=== PATIENT | female | born 1970 | race Caucasian/White ===

== ENCOUNTER 2020-11-03 08:52 | Outpatient (REF) | payer MEDICAID, SELFPAY ==
--- NOTE | 2020-11-03 | US_ITS ---
EXAMINATION: US RETROPERITONEAL LIMITED (RENAL ONLY) CLINICAL INFORMATION: Renal calculus. COMPARISON: CT abdomen and pelvis 03/31/2020. Renal ultrasound 02/06/2020. TECHNIQUE: Real-time imaging of the kidneys. FINDINGS: RIGHT KIDNEY: 9.1 x 5.0 x 5.3 cm (SAG x AP x TRV). The kidney is normal in size, contour, and echogenicity. Renal cortical thickness is normal. No focal parenchymal lesions or hydronephrosis. There is an echogenic stone upper/midpole measuring 0.60 x 0.3 cm 0.32 cm. There is questionable exophytic nonvascular mass in the upper pole with ill-defined margins. This is not seen on the recent CT abdomen exam 03/31/2020. LEFT KIDNEY: 10.8 x 6.3 x 6.3 cm (SAG x AP x TRV). The kidney is normal in size, contour, and echogenicity. Renal cortical thickness is normal. No focal parenchymal lesions or hydronephrosis. There is an echogenic stone in lower pole without caliectasis. It measures 0.23 x 0.26 was 0.23 cm US/US renal BI IMPRESSION: 1. Bilateral nonobstructive echogenic calculi. No evidence of hydronephrosis. 2. Ill-defined mass-like nonvascular structure exophytic right kidney. No lesion was seen on the recent CT abdomen and pelvic contrast exam 03/31/2020.
== END 2020-11-03 08:53 | disposition home or self-care (01) ==
LOC: HO.US 08:52
PROVIDERS: PCP Internal Medicine; Visit Provider Urology
DX: N20.0 Calculus of kidney (principal)
CPT/HCPCS: 76775

== ENCOUNTER → 2020-11-21 14:32 | Outpatient (BNVA) | payer MEDICAID, SELFPAY | PROVIDERS: PCP Family Medicine; Referring Provider Family Medicine; Visit Provider Urology ==

== ENCOUNTER 2022-01-28 14:27 | Outpatient (REF) | payer MEDICAID, SELFPAY ==
--- NOTE | ~2022-01-28 | XR_ITS ---
EXAMINATION: XR LUMBOSACRAL SPINE CLINICAL INFORMATION: Low back pain. COMPARISON: None TECHNIQUE: Three views of the lumbosacral spine. FINDINGS: The heights of the lumbar vertebrae are normal. Mild thoracolumbar dextroscoliosis. The alignment is intact. Mild decreased disc height, endplate osteophyte formation, consistent with mild multilevel degenerative spondylosis related changes are noted throughout the entire lumbar spine. Postsurgical changes of prior hernia repair is noted within the lower abdomen, seen only on the frontal projection. XR/XR lumbar spine 2-3V IMPRESSION: Mild multilevel degenerative spondylosis.
== END 2022-01-28 14:28 | disposition home or self-care (01) ==
LOC: HO.XRAY 14:27
PROVIDERS: PCP Family Medicine; Visit Provider Family Medicine
DX: M54.41 Lumbago with sciatica, right side (principal); M54.42 Lumbago with sciatica, left side
CPT/HCPCS: 72100

== ENCOUNTER 2022-09-28 11:19 | Outpatient (REF) | payer MEDICAID, SELFPAY ==
--- NOTE | ~2022-09-28 | US_ITS ---
EXAMINATION: US RETROPERITONEAL LIMITED (RENAL ONLY) CLINICAL INFORMATION: Calculus of kidney. COMPARISON: Renal ultrasound 11/03/2020 and 02/06/2020. CT abdomen and pelvis 03/31/2020. TECHNIQUE: Real-time imaging of the kidneys. FINDINGS: RIGHT KIDNEY: 9.1 x 4.7 x 6.0 cm (SAG x AP x TRV). The kidney is normal in size, contour, and echogenicity. Renal cortical thickness is normal. No hydronephrosis. There is an anechoic cyst in the upper pole measuring 0.82 x 0.82 x 1.0 cm. There are 2 echogenic nonobstructive calculi in upper pole measuring 0.63 x 0.30 x 0.44 cm and midpole measuring 0.24 x 0.18 x 0.35 cm. LEFT KIDNEY: 10.8 x 5.4 x 5.3 cm (SAG x AP x TRV). The kidney is normal in size, contour, and echogenicity. Renal cortical thickness is normal. No calculi or focal parenchymal lesions. No hydronephrosis. US/US renal BI IMPRESSION: 1. Nonobstructive echogenic stones upper and midpole right kidney. 2. There is an anechoic cyst upper pole right kidney, not previously mentioned but unchanged. 3. The left kidney is unremarkable.
== END 2022-09-28 11:20 | disposition home or self-care (01) ==
LOC: HO.HMGCX 11:19
PROVIDERS: PCP Family Medicine; Visit Provider Emergency Medicine
DX: N20.0 Calculus of kidney (principal)
CPT/HCPCS: 76775

== ENCOUNTER 2023-08-29 11:00 | Outpatient (REF) | payer MEDICAID, SELFPAY ==
[2023-08-29 13:19] LABS: MANUAL DIFF FLAG NO
[2023-08-29 13:29] LABS: Basophils Absolute Auto 0.1 X10*3/uL (0.0-0.2); Basophils Percent Auto 0.6 % (0-2); Eosinophils Absolute Auto 0.2 X10*3/uL (0.0-0.4); Eosinophils Percent Auto 2.2 % (0-4); Hematocrit 44.8 % (37.0-47.0); Hemoglobin 14.2 g/dl (12.0-16.0); Imm Gran Abs Auto 0.04 X10*3/uL (0.00-0.03); Imm Gran Pct Auto 0.4 % (0.0-0.4); Lymphocytes Absolute Auto 2.5 X10*3/uL (1.2-4.9); Lymphocytes Percent Auto 25.5 % (20-40); Mean Corpuscular HGB Conc 31.7 g/dl (31.0-35.0); Mean Corpuscular Hemoglobin 27.5 pg (27.0-33.0); Mean Corpuscular Volume 86.7 fL (80.0-98.0); Mean Platelet Volume 10.1 fL (9.4-12.3); Monocytes Absolute Auto 0.5 X10*3/uL (0.1-1.2); Monocytes Percent Auto 5.1 % (2-11); Neutrophils Absolute Auto 6.3 x10*3/uL (2.0-8.3); Neutrophils Percent Auto 66.2 % (45-73); Platelet Count 283 X10*3/uL (160-400); Red Blood Count 5.17 X10*6/uL (4.20-5.50); Red Cell Distribution Width 13.5 % (11.0-16.0); White Blood Count 9.6 X10*3/uL (4.8-10.8)
[2023-08-29 13:42] LABS: Estimated Average Glucose 123 mg/dL; Hemoglobin A1c % 5.9 % (<6.0)
[2023-08-29 13:59] LABS: Alanine Aminotransferase 31 U/L (0-31); Albumin Level 4.7 g/dL (3.5-5.0); Alkaline Phosphatase 91 U/L (39-117); Anion Gap 12 (12-20); Aspartate Amino Transferase 25 U/L (5-31); Bilirubin Direct 0.1 mg/dL (0.0-0.5); Bilirubin Total 0.3 mg/dL (0.0-1.0); Blood Urea Nitrogen 12 mg/dL (9-16); Calcium 10.2 mg/dL (8.4-10.2); Carbon Dioxide 26 mmol/L (22-29); Chloride 106 mmol/L (96-108); Cholesterol 223 mg/dL (<200); Estimated Glomerular Filt Rate > 60; Free T4 (Free Thyroxine) 0.88 ng/dL (0.71-1.85); Glucose Random 88 mg/dL (60-115); HDL Cholesterol 57 mg/dL (>40); LDL Cholesterol Calculated 151 mg/dL (<100); Potassium 3.9 mmol/L (3.3-5.1); Sodium 140 mmol/L (135-145); Total Protein 8.1 g/dL (6.5-8.0); Triglycerides 79 mg/dL (<150); Vitamin D 25-OH Total 44.2 ng/mL (>30)
[2023-08-29 15:44] LABS: CT PCR NOT DETECTED (Not Detect.); NG PCR NOT DETECTED (Not Detect.)
[2023-08-30 05:39] LABS: Syphilis Screen Nonreactive (Nonreactive)
[2023-08-30 05:42] LABS: HIV AB/AG Nonreactive (Nonreactive); HIV Num 1 0.05 S/CO (0.00-0.99)
[2023-08-30 06:07] LABS: HBsAGNum1 0.36 S/CO (0.00-0.99); Hepatitis B Surface Antigen Negative (Negative); ~Hepatitis B Surface Antibody NONREACTIVE (Nonreactive)
[2023-08-30 06:17] LABS: Hepatitis A Antibody IgG Nonreactive (Nonreactive); ~Hepatitis A Antibody IgG 0.43 S/CO (0.00-0.99)
[2023-08-30 16:04] LABS: HIV RNA PCR Qn Copies NOT DETECTED copies/mL (NOT DETECTED); HIV RNA PCR Qn Log Copies NOT DETECTED (NOT DETECTED)
== END 2023-08-29 11:01 | disposition home or self-care (01) ==
LOC: HO.HHCL 11:00
PROVIDERS: Visit Provider Family Medicine
DX: Z00.00 Encounter for general adult medical examination without abnormal findings (principal)
CPT/HCPCS: 0353U; 36415; 80048; 80061; 80076; 82306; 83036; 84439; 84443; 85025; 86706; 86708; 86780; 87340; 87389; 87536

== ENCOUNTER 2023-09-23 12:38 | Outpatient (REF) | payer MEDICAID, SELFPAY ==
--- NOTE | ~2023-09-23 | US_ITS ---
EXAMINATION: US RETROPERITONEAL LIMITED (RENAL ONLY) CLINICAL INFORMATION: Nephrolithiasis. COMPARISON: Renal ultrasound 09/28/2022 and 11/03/2020. CT abdomen and pelvis 03/31/2020. TECHNIQUE: Real-time imaging of the kidneys. FINDINGS: RIGHT KIDNEY: 10.1 x 4.9 x 4.4 cm (SAG x AP x TRV). The kidney is normal in size, contour, and echogenicity. Renal cortical thickness is normal. No hydronephrosis. At the upper pole, a 5 mm nonobstructing calculus is seen. At the upper pole, a 1.2 cm benign, simple cyst is seen, for which no imaging follow-up is recommended. LEFT KIDNEY: 11.2 x 4.8 x 5.4 cm (SAG x AP x TRV). The kidney is normal in size, contour, and echogenicity. Renal cortical thickness is normal. No calculi or focal parenchymal lesions. No hydronephrosis. US/US renal BI IMPRESSION: A 5 mm nonobstructing right renal calculus is seen. No left renal calculus is seen. No hydronephrosis is noted bilaterally.
== END 2023-09-23 12:39 | disposition home or self-care (01) ==
LOC: HO.US 12:38
PROVIDERS: PCP Family Medicine; Visit Provider Family Medicine
DX: N20.0 Calculus of kidney (principal)
CPT/HCPCS: 76775

== ENCOUNTER 2023-10-07 18:06 | Outpatient (REF) | payer MEDICAID, SELFPAY ==
[2023-10-10 11:24] LABS: C. trachomatis RNA TMA NOT DETECTED (NOT DETECTED); Candida glabrata RNA NOT DETECTED (NOT DETECTED); Candida species RNA NOT DETECTED (NOT DETECTED); N. gonorrhoeae RNA TMA NOT DETECTED (NOT DETECTED); Trichomonas vaginalis RNA NOT DETECTED (NOT DETECTED)
[2023-10-13 23:07] LABS: HPV mRNA E6/E7 rflx Not Detected (Not Detected)
== END 2023-10-07 18:07 | disposition home or self-care (01) ==
LOC: HO.HHCLNP 18:06
PROVIDERS: Visit Provider Family Medicine
DX: Z12.4 Encounter for screening for malignant neoplasm of cervix (principal)
CPT/HCPCS: 36415; 81513; 87481; 87491; 87591; 87624; 87661; 88142

== ENCOUNTER → 2023-10-19 12:23 | Outpatient (BNVA) | payer MEDICAID, SELFPAY | PROVIDERS: PCP Family Medicine; Visit Provider Urology ==

== ENCOUNTER 2023-11-23 14:29 | Outpatient (AMB) | payer MEDICAID, SELFPAY ==
--- NOTE | 2023-11-23 14:35 | A.OFFVIS_ITS ---
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 Pt states her numbness in her hands will come and go but is only in her hands. Pt states she did have PT in September but they stopped the PT due to her inflammation and pain not getting better. 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 She reports she has numbness and tingling in her hand which she believes started after lifting heavy objects at work about an year ago. She currently states she has mild pain as well as intermittent numbness and tingling which is worse on her left hand. Her pain is aggravated with twisting motions and at night. She was working with physical therapy but had to discontinue due to her inflammation and pain in the hand. [facility] Medical History Mild depression Chronic low back pain Diverticulosis Chronic gastroesophageal reflux disease Intermittent asthma History of panic disorder Hx of allergic rhinitis Surgical History Hx of cholecystectomy Hx of lithotripsy History of inguinal hernia Hx of section Family History Father No problems noted. Mother No problems noted. Social History Alcohol intake: current Alcohol intake frequency: does not drink Patient Tobacco Use Status: Never used Tobacco Review of Systems Const All systems reviewed & are unremarkable except as noted in HPI and below Physical Exam Const General: cooperative, healthy appearing, comfortable, no acute distress, well developed and alert Orientation/consciousness: patient oriented x3 HEENT Head: Yes normal to inspection, Yes normocephalic and Yes atraumatic Eyes General: appearance normal, both eyes and all related structures Resp Effort & Inspection: normal respiratory effort and able to speak in complete sentences Cardio Rate: regular rate Peripheral pulses: Peripheral pulses 2+ throughout GI Palpation (GI): Soft to palpation Skin Lesions: no lesions Rashes: no rashes Neuro General: patient oriented x3 Extrem Other: Left wrist: Without deformity. No swelling. Mild tenderness over the radial styloid. Positive Kennedy?s. No pain with [facility] grind. is able to make a full fist and fully extend all digits. Positive Tinel?s over the cubital tunnel of the left elbow. NVI. Assessment & Plan Assessment & Plan (1) Medial epicondylitis, left elbow: Code(s): M77.02 - Medial epicondylitis, left elbow (2) De Quervain's disease (radial styloid tenosynovitis): Code(s): M65.4 - Radial styloid tenosynovitis [de Quervain] Plan She was fit for an off the shelf Velcro thumb spica splint which she will wear at night and with lifting activities. She will also work with occupational therapy for her left wrist and elbow. She had any EMG/nerve conduction study performed at [facility] which I will obtain results for further information and I will contact her if there is any need for further treatment such as a surgical intervention. Orders: Orders OT Evaluation and Treatment Today M65.4 - Radial styloid tenosynovitis [de Quervain], M77.02 - Medial epicondylitis, left elbow Patient Instructions: Scribed for Melissa Leyva PA-C, by Alexander Arias biomedical equipment technician, on 11/23/2023 at 3:00 PM EST. I, Melissa Leyva PA-C, have personally reviewed and agree with t he information entered by the scribe. Coding Level of Care Code New Pt Level 3 (81292) Diagnoses Medial epicondylitis, left elbow M77.02 De Quervain's disease (radial styloid tenosynovitis) M65.4
== END 2023-11-23 15:45 | disposition home or self-care (01) ==
PROVIDERS: PCP Family Medicine; Visit Provider Physician Assistant
DX: M77.02 Medial epicondylitis, left elbow (principal); M65.4 Radial styloid tenosynovitis [de Quervain]
CPT/HCPCS: 99203

== ENCOUNTER → 2023-11-23 14:29 | Outpatient (BNVA) | payer MEDICAID, SELFPAY | PROVIDERS: PCP Family Medicine; Visit Provider Physician Assistant | DX: M77.02 Medial epicondylitis, left elbow (principal); M65.4 Radial styloid tenosynovitis [de Quervain] | CPT/HCPCS: 99212 ==

== ENCOUNTER 2023-12-09 09:14 | Outpatient (REF) | payer MEDICAID, SELFPAY ==
[2023-12-11 20:27] LABS: TS Negative Control Passed; TS Panel A 0; TS Panel B 0; TS Positive Control Passed; TSpotTB Negative (Negative)
== END 2023-12-09 09:15 | disposition home or self-care (01) ==
LOC: HO.HHCL 09:14
PROVIDERS: Visit Provider Family Medicine
DX: Z00.00 Encounter for general adult medical examination without abnormal findings (principal)
CPT/HCPCS: 36415; 86481

== ENCOUNTER 2023-12-23 10:31 | Outpatient (REF) | payer MEDICAID, SELFPAY ==
--- NOTE | 2023-12-23 10:35 | EMG_ITS ---
Chief complaint: Pain, numbness both hands, left-sided neck pain. Reason for referral: Evaluate for Carpal Tunnel Syndrome versus ulnar neuropathy Referred by: Melissa HALE Procedure done: Bilateral upper extremities NCS/EMG Precautions and/or limitations: None The limb temperature was monitored continuously and remained between 32-36 degrees C during the performance of the NCS. Nerve Conduction Studies Anti Sensory Summary Table ?Stim Site NR Onset (ms) Norm Onset (ms) Peak (ms) Norm Peak (ms) O-P Amp (?V) Norm O-P Amp Site1 Site2 Delta-0 (ms) Dist (cm) Gomez (m/s) Norm Gomez (m/s) Left Median Anti Sensory (2nd Digit) Wrist ? 2.9 3.8 <3.6 29.9 >10 Wrist 2nd Digit 2.9 14.0 48 Right Median Anti Sensory (2nd Digit) Wrist ? 3.1 4.1 <3.6 29.8 >10 Wrist 2nd Digit 3.1 14.0 45 Right Radial Anti Sensory (Thumb) Forearm ? 1.7 2.3 <3.1 28.9 Forearm Thumb 1.7 0.0 Left Ulnar Anti Sensory (5th Digit) Wrist ? 2.4 3.2 <3.7 30.4 >15.0 Wrist 5th Digit 2.4 14.0 58 Right Ulnar Anti Sensory (5th Digit) Wrist ? 2.4 3.3 <3.7 22.8 >15.0 Wrist 5th Digit 2.4 14.0 58 Motor Summary Table ?Stim Site NR Onset (ms) Norm Onset (ms) O-P Amp (mV) Norm O-P Amp iAmp (mV) Amp (1st) (%) Site1 Site2 Delta-0 (ms) Dist (cm) Gomez (m/s) Norm Gomez (m/s) Left Median Motor (Abd Poll Brev) Wrist ? 3.9 <3.9 10.0 >4.5 13.2 100.0 Elbow Wrist 3.8 19.0 50 >45 Elbow ? 7.7 7.8 10.8 78.0 Right Median Motor (Abd Poll Brev) Wrist ? 3.8 <3.9 11.9 >4.5 15.1 100.0 Elbow Wrist 3.8 18.0 47 >45 Elbow ? 7.6 12.0 15.0 100.8 Left Ulnar Motor (Abd Dig Minimi) Wrist ? 2.7 <3.0 5.9 >5 7.2 100.0 B Elbow Wrist 2.7 16.0 59 >45 B Elbow ? 5.4 5.5 6.6 93.2 A Elbow B Elbow 1.4 10.0 71 >45 A Elbow ? 6.8 5.5 6.6 93.2 Right Ulnar Motor (Abd Dig Minimi) Wrist ? 2.9 <3.0 9.6 >5 12.5 100.0 B Elbow Wrist 2.7 17.0 63 >45 B Elbow ? 5.6 8.9 11.5 92.7 A Elbow B Elbow 1.2 10.0 83 >45 A Elbow ? 6.8 7.9 10.7 82.3 EMG ?Side Muscle Nerve Root Ins Act Fibs Psw Amp Dur Poly Recrt Int Pat Comment Right 1stDorInt Ulnar C8-T1 Nml Nml Nml Nml Nml 0 Nml Complete Right FlexCarRad Median C6-7 Nml Nml Nml Nml Nml 0 Nml Complete Right Biceps Musculocut C5-6 Nml Nml Nml Nml Nml 0 Nml Complete Right Triceps Radial C6-7-8 Nml Nml Nml Nml Nml 0 Nml Complete Right Deltoid Axillary C5-6 Nml Nml Nml Nml Nml 0 Nml Complete Left 1stDorInt Ulnar C8-T1 Nml Nml Nml Nml Nml 0 Nml Complete Left FlexCarRad Median C6-7 Nml Nml Nml Nml Nml 0 Nml Complete Left Biceps Musculocut C5-6 Nml Nml Nml Nml Nml 0 Nml Complete Left Triceps Radial C6-7-8 Nml Nml Nml Nml Nml 0 Nml Complete Left Deltoid Axillary C5-6 Nml Nml Nml Nml Nml 0 Nml Complete FINDINGS: Bilateral median sensory nerves showed prolonged peak latency. All other nerves tested were within normal. Concentric needle EMG was performed in selected muscles of the bilateral upper extremities. Study did not reveal signs of electric abnormalities as shown in the table below. IMPRESSION: 1. This is an abnormal study. 2. There is electrodiagnostic evidence for bilateral mild median neuropathy at the wrist, consistent with carpal tunnel syndrome. 3. There is no electrodiagnostic evidence for ulnar neuropathy, brachial plexopathy, or cervical radiculopathy. Thank you for your kind referral. Claudine Douglas MD, UZIEL Board Certified, [place] Board of Physical Medicine and Rehabilitation (ABPMR) Board Certified, [place] Board of Electrodiagnostic Medicine (ABEM) CODIN 94607 x 2 MTDD
== END 2023-12-23 10:32 | disposition home or self-care (01) ==
LOC: HO.NEURO 10:31
PROVIDERS: PCP Family Medicine; Visit Provider Physician Assistant
DX: R20.0 Anesthesia of skin (principal); R20.2 Paresthesia of skin
CPT/HCPCS: 95886; 95911

== ENCOUNTER → 2023-12-23 10:35 | Outpatient (BNV) | payer MEDICAID, SELFPAY | PROVIDERS: PCP Family Medicine; Visit Provider Physical Medicine & Rehabilitation | DX: G56.03 Carpal tunnel syndrome, bilateral upper limbs (principal); G56.13 Other lesions of median nerve, bilateral upper limbs | CPT/HCPCS: 95886; 95911 ==

== ENCOUNTER 2024-01-24 13:06 | Outpatient (AMB) | payer MEDICAID, SELFPAY ==
--- NOTE | 2024-01-24 13:30 | A.OFFVIS_ITS ---
Intake Vital Signs 01/24/24 13:34 Height 5 ft 1 in Weight 210 lb BMI 39.7 Intake Visit Reasons: ov-CTS EMG Review Intake Note: Viry 53 yr old female presents today for her CTS EMG Review of bilateral hands. States she would like to discuss surgery for her left hand first. Allergies No Known Allergies [No Known Allergies*] Allergy (Verified 01/24/24 13:41) HPI ov-CTS EMG Review HPI Details Viry is a 53 year old right hand dominant German speaking woman who presents for a NCS of her bilateral hand numbness. She complains of numbness in the thumb, index, and middle fingers bilaterally, L>R. Symptoms intermittent, but daily, worse at night. She has left medial epicondylitis and left De Quervain's. She was last seen by ALEXIA Torres on 11/23/23, given a velcro splint and referred to OT. She has not attended OT at this time. She had no complaints of this today. 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 [facility] Medical History Mild depression Chronic low back pain Diverticulosis Chronic gastroesophageal reflux disease Intermittent asthma History of panic disorder Hx of allergic rhinitis Surgical History Hx of cholecystectomy Hx of lithotripsy History of inguinal hernia Hx of section Family History Father No problems noted. Mother No problems noted. Social History Alcohol intake: current Alcohol intake frequency: does not drink Patient Tobacco Use Status: Never used Tobacco Review of Systems Const All systems reviewed & are unremarkable except as noted in HPI and below Physical Exam Vital Signs: BMI result Body Mass Index 39.7 Const General: cooperative, healthy appearing and no acute distress Orientation/consciousness: patient oriented x3 HEENT Head: Yes normocephalic and Yes atraumatic Eyes EOM: EOMs intact bilaterally Resp Effort & Inspection: normal respiratory effort and able to speak in complete sentences Cardio Jugular venous distension: no JVD Skin General skin exam: turgor normal Rashes: no rashes Neuro General: patient oriented x3 Extrem Other: Evaluation of Bilateral Upper Extremity: The patient is alert, oriented, and in no acute distress Neuro: Median, Ulnar, Radial nerves motor and sensory intact and sensation is normal to the tips of all digits No thenar or intrinsic wasting Good APB muscle belly firing and good finger cross Vascular: Cap refill brisk ROM: She can make a fist and extend all her digits No locking or catching Skin: No lacerations or abrasions. General: No Ecchymosis. No Erythema or evidence of infection. Nerve Conduction Study: IMPRESSION: 1. This is an abnormal study. 2. There is electrodiagnostic evidence for bilateral mild median neuropathy at the wrist, consistent with carpal tunnel syndrome. 3. There is no electrodiagnostic evidence for ulnar neuropathy, brachial plexopathy, or cervical radiculopathy. Claudine Douglas MD, UZIEL 12/23/23 Psych Appearance: grossly normal Affect: normal affect Attitude: cooperative Assessment & Plan Assessment & Plan (1) Carpal tunnel syndrome of left wrist: Code(s): G56.02 - Carpal tunnel syndrome, left upper limb (2) Carpal tunnel syndrome of right wrist: Code(s): G56.01 - Carpal tunnel syndrome, right upper limb Plan Assessment & Plan: 1. Left carpal tunnel syndrome, mild Symptoms intermittent, but daily, worse at night I educated her about this condition I discussed operative and non-operative treatment options The patient would like to proceed with surgery, beginning with the left hand The risks and benefits of operative treatment were discussed with the patient and the patient wishes to proceed with surgery. These risks include, but are not limited to risk of damage to blood vessels, nerves, tendons, infection, recurrence, incomplete relief of preoperative symptoms, persistent pain, possible need for further surgery and the risks associated with regional blocks and anesthesia. The plan is to take the patient to the operating room sometime in the next few weeks for the following procedures: 1. Left carpal tunnel release, under local All of the preoperative paperwork including the consent was reviewed today. All the patient's questions were answered. The patient understands that they will be contacted by our plastic surgery technician soon to schedule this procedure She denies Diabetes, blood thinners, asthma, heart, lung, kidney issues 2. Right carpal tunnel syndrome, mild Symptoms intermittent, but daily, worse at night She will follow up to discuss treatment when her left hand has recovered 3. Left De Quervain's No complaints toay 4. Left medial epicondylitis No complaints toay Scribed for Kristen Thomas MD by Yordy Lucio, director medical safety, on 01/24/24 at 1:55 PM, EST. Coding Level of Care Code Est Pt Level 4 (98461) Diagnoses Carpal tunnel syndrome of left wrist G56.02 Carpal tunnel syndrome of right wrist G56.01
[2024-01-24 13:34] VITALS: BMI 39.7
== END 2024-01-24 14:00 | disposition home or self-care (01) ==
PROVIDERS: PCP Family Medicine; Visit Provider Orthopaedic Surgery
DX: G56.03 Carpal tunnel syndrome, bilateral upper limbs (principal)
CPT/HCPCS: 99214

== ENCOUNTER → 2024-01-24 13:06 | Outpatient (BNVA) | payer MEDICAID, SELFPAY | PROVIDERS: PCP Family Medicine; Visit Provider Orthopaedic Surgery | DX: G56.03 Carpal tunnel syndrome, bilateral upper limbs (principal) | CPT/HCPCS: 99212 ==

== ENCOUNTER 2024-02-15 13:00 | Outpatient (REF) | payer MEDICAID, SELFPAY ==
--- NOTE | ~2024-02-15 | XR_ITS ---
EXAMINATION: XR RIGHT KNEE XR CERVICAL SPINE XR THORACIC SPINE XR LUMBAR SPINE CLINICAL INFORMATION: Patient states knee giving out for 3 weeks. Chronic bilateral low back pain with pain radiating down right leg. Some difficulty with patient positioning due to body habitus, best attempts made per technologist statement. COMPARISON: Lumbar spine 01/29/2020, chest 03/31/2020. TECHNIQUE: 4 views of the cervical spine, 2 views of the thoracic spine, 4 views of the lumbar spine, 4 views of the right knee. FINDINGS: RIGHT KNEE: Tiny tricompartmental osteophytes. Mild narrowing of the medial compartment. No significant joint effusion. CERVICAL SPINE: Straightening of the normal cervical lordosis. C7 partially obscured by overlying soft tissues. Multilevel cervical spondylosis with [id number] degenerative changes and loss of disc space height most notable at C5-C6 and C6-C7. THORACIC SPINE: Surgical clips in the right upper quadrant. Slight dextroscoliosis of the thoracic spine. Mild multilevel degenerative changes in the thoracic spine. LUMBAR SPINE: Surgical clips in the right upper quadrant. Hernia repair material overlying the lower abdomen. Multiple calcifications overlie the interpolar region of the right kidney, largest 6 mm. Ultrasound of 09/23/2023 demonstrated a 5 mm right upper pole calculus. At least some of these calcifications were present on January 28, 2022. Mild dextroscoliosis of the lumbar spine. Facet arthritis in the lower lumbar spine. Mild multilevel lumbar spondylosis with redemonstration of previously noted mild loss of disc space height. XR/XR lumbar spine 2-3V IMPRESSION: 1. Mild degenerative changes right knee. 2. Multilevel cervical spondylosis most notable at C5-C6 and C6-C7. 3. Mild multilevel degenerative changes in the thoracic spine. 4. Mild multilevel lumbar spondylosis. 5. Multiple calcifications overlie the interpolar region of the right kidney, largest 6 mm. Ultrasound 09/23/2023 demonstrate a 5 mm right upper pole calculus. At least some of these calcifications were present on January 28, 2022.
--- NOTE | ~2024-02-15 | XR_ITS ---
EXAMINATION: XR RIGHT KNEE XR CERVICAL SPINE XR THORACIC SPINE XR LUMBAR SPINE CLINICAL INFORMATION: Patient states knee giving out for 3 weeks. Chronic bilateral low back pain with pain radiating down right leg. Some difficulty with patient positioning due to body habitus, best attempts made per technologist statement. COMPARISON: Lumbar spine 01/29/2020, chest 03/31/2020. TECHNIQUE: 4 views of the cervical spine, 2 views of the thoracic spine, 4 views of the lumbar spine, 4 views of the right knee. FINDINGS: RIGHT KNEE: Tiny tricompartmental osteophytes. Mild narrowing of the medial compartment. No significant joint effusion. CERVICAL SPINE: Straightening of the normal cervical lordosis. C7 partially obscured by overlying soft tissues. Multilevel cervical spondylosis with [id number] degenerative changes and loss of disc space height most notable at C5-C6 and C6-C7. THORACIC SPINE: Surgical clips in the right upper quadrant. Slight dextroscoliosis of the thoracic spine. Mild multilevel degenerative changes in the thoracic spine. LUMBAR SPINE: Surgical clips in the right upper quadrant. Hernia repair material overlying the lower abdomen. Multiple calcifications overlie the interpolar region of the right kidney, largest 6 mm. Ultrasound of 09/23/2023 demonstrated a 5 mm right upper pole calculus. At least some of these calcifications were present on January 28, 2022. Mild dextroscoliosis of the lumbar spine. Facet arthritis in the lower lumbar spine. Mild multilevel lumbar spondylosis with redemonstration of previously noted mild loss of disc space height. XR/XR cervical spine 3V IMPRESSION: 1. Mild degenerative changes right knee. 2. Multilevel cervical spondylosis most notable at C5-C6 and C6-C7. 3. Mild multilevel degenerative changes in the thoracic spine. 4. Mild multilevel lumbar spondylosis. 5. Multiple calcifications overlie the interpolar region of the right kidney, largest 6 mm. Ultrasound 09/23/2023 demonstrate a 5 mm right upper pole calculus. At least some of these calcifications were present on January 28, 2022.
--- NOTE | ~2024-02-15 | XR_ITS ---
EXAMINATION: XR RIGHT KNEE XR CERVICAL SPINE XR THORACIC SPINE XR LUMBAR SPINE CLINICAL INFORMATION: Patient states knee giving out for 3 weeks. Chronic bilateral low back pain with pain radiating down right leg. Some difficulty with patient positioning due to body habitus, best attempts made per technologist statement. COMPARISON: Lumbar spine 01/29/2020, chest 03/31/2020. TECHNIQUE: 4 views of the cervical spine, 2 views of the thoracic spine, 4 views of the lumbar spine, 4 views of the right knee. FINDINGS: RIGHT KNEE: Tiny tricompartmental osteophytes. Mild narrowing of the medial compartment. No significant joint effusion. CERVICAL SPINE: Straightening of the normal cervical lordosis. C7 partially obscured by overlying soft tissues. Multilevel cervical spondylosis with [id number] degenerative changes and loss of disc space height most notable at C5-C6 and C6-C7. THORACIC SPINE: Surgical clips in the right upper quadrant. Slight dextroscoliosis of the thoracic spine. Mild multilevel degenerative changes in the thoracic spine. LUMBAR SPINE: Surgical clips in the right upper quadrant. Hernia repair material overlying the lower abdomen. Multiple calcifications overlie the interpolar region of the right kidney, largest 6 mm. Ultrasound of 09/23/2023 demonstrated a 5 mm right upper pole calculus. At least some of these calcifications were present on January 28, 2022. Mild dextroscoliosis of the lumbar spine. Facet arthritis in the lower lumbar spine. Mild multilevel lumbar spondylosis with redemonstration of previously noted mild loss of disc space height. XR/XR knee RT 3V IMPRESSION: 1. Mild degenerative changes right knee. 2. Multilevel cervical spondylosis most notable at C5-C6 and C6-C7. 3. Mild multilevel degenerative changes in the thoracic spine. 4. Mild multilevel lumbar spondylosis. 5. Multiple calcifications overlie the interpolar region of the right kidney, largest 6 mm. Ultrasound 09/23/2023 demonstrate a 5 mm right upper pole calculus. At least some of these calcifications were present on January 28, 2022.
--- NOTE | ~2024-02-15 | XR_ITS ---
EXAMINATION: XR RIGHT KNEE XR CERVICAL SPINE XR THORACIC SPINE XR LUMBAR SPINE CLINICAL INFORMATION: Patient states knee giving out for 3 weeks. Chronic bilateral low back pain with pain radiating down right leg. Some difficulty with patient positioning due to body habitus, best attempts made per technologist statement. COMPARISON: Lumbar spine 01/29/2020, chest 03/31/2020. TECHNIQUE: 4 views of the cervical spine, 2 views of the thoracic spine, 4 views of the lumbar spine, 4 views of the right knee. FINDINGS: RIGHT KNEE: Tiny tricompartmental osteophytes. Mild narrowing of the medial compartment. No significant joint effusion. CERVICAL SPINE: Straightening of the normal cervical lordosis. C7 partially obscured by overlying soft tissues. Multilevel cervical spondylosis with [id number] degenerative changes and loss of disc space height most notable at C5-C6 and C6-C7. THORACIC SPINE: Surgical clips in the right upper quadrant. Slight dextroscoliosis of the thoracic spine. Mild multilevel degenerative changes in the thoracic spine. LUMBAR SPINE: Surgical clips in the right upper quadrant. Hernia repair material overlying the lower abdomen. Multiple calcifications overlie the interpolar region of the right kidney, largest 6 mm. Ultrasound of 09/23/2023 demonstrated a 5 mm right upper pole calculus. At least some of these calcifications were present on January 28, 2022. Mild dextroscoliosis of the lumbar spine. Facet arthritis in the lower lumbar spine. Mild multilevel lumbar spondylosis with redemonstration of previously noted mild loss of disc space height. XR/XR thoracic spine 2V IMPRESSION: 1. Mild degenerative changes right knee. 2. Multilevel cervical spondylosis most notable at C5-C6 and C6-C7. 3. Mild multilevel degenerative changes in the thoracic spine. 4. Mild multilevel lumbar spondylosis. 5. Multiple calcifications overlie the interpolar region of the right kidney, largest 6 mm. Ultrasound 09/23/2023 demonstrate a 5 mm right upper pole calculus. At least some of these calcifications were present on January 28, 2022.
== END 2024-02-15 13:01 | disposition home or self-care (01) ==
LOC: HO.HHCX 13:00
PROVIDERS: Visit Provider Family Medicine
DX: M25.361 Other instability, right knee (principal); M54.41 Lumbago with sciatica, right side; G89.29 Other chronic pain
CPT/HCPCS: 72040; 72070; 72100; 73562

== ENCOUNTER 2024-02-21 07:18 | Outpatient (REF) | payer MEDICAID, SELFPAY ==
--- NOTE | ~2024-02-21 | MR_ITS ---
EXAMINATION: MR LUMBAR SPINE WITHOUT CONTRAST CLINICAL INFORMATION: Low back pain, right-sided radiculopathy COMPARISON: None TECHNIQUE: MRI of the lumbar spine was obtained using routine sequences without contrast. FINDINGS: Normal lumbar lordosis is preserved. Trace retrolisthesis at L3-L4. Vertebral body heights are maintained. There is no suspicious osseous lesion.L2 vertebral body intraosseous hemangioma. Multilevel disc desiccation with mild L1-L2 disc height loss, where there are type II Modic endplate changes associated with ventral osteophytic spurring. Additional multilevel mild type II Modic endplate change. Level by level detail as follows: L1-L2: Shallow annular disc bulge. No spinal canal or neural foraminal stenosis. L2-L3: Shallow annular disc bulge with mild bilateral facet hypertrophy. No spinal canal or neural foraminal stenosis. L3-L4: Trace retrolisthesis with annular disc bulge and mild bilateral facet arthrosis. No spinal canal stenosis. Mild bilateral neural foraminal narrowing. L4-L5: Annular disc bulge and mild bilateral facet hypertrophy. No spinal canal or neural foraminal stenosis. L5-S1: Annular disc bulge, severe right with mild left facet arthrosis. Epidural lipomatosis partially effaces the thecal sac. Mild right without left neural foraminal stenosis and annular disc bulge encroaching upon the extraforaminal right L5 nerve root. The conus medullaris terminates at the level of L2. The distal spinal cord is normal in appearance. No epidural fluid collection, hematoma, or mass. No significant abnormalities of the paraspinal musculature. Several T2 hyperintense foci in the right kidney, several with dependent rounded T2 hypointense foci, presumably chronic caliectasis with dependent calculi as seen on prior CT. The abdominal aorta is of normal contour and caliber. MR/MR lumbar spine wo con IMPRESSION: Mild multilevel lumbar spondylosis without significant spinal canal stenosis or high-grade neural foraminal stenosis. At L5-S1, there is mild right neural foraminal stenosis and annular disc bulge encroaching upon the extraforaminal right L5 nerve root.
== END 2024-02-21 07:19 | disposition home or self-care (01) ==
LOC: HO.MRI 07:18
PROVIDERS: PCP Family Medicine; Visit Provider Family Medicine
DX: M54.41 Lumbago with sciatica, right side (principal); G89.29 Other chronic pain
CPT/HCPCS: 72148

== ENCOUNTER 2024-03-06 07:37 | Outpatient (REF) | payer MEDICAID, SELFPAY ==
--- NOTE | 2024-03-06 07:42 | EMG_ITS ---
Bilateral tibial and peroneal motor studies were performed. Bilateral superficial peroneal, sural, and median and lateral mixed plantar sensory studies were performed, tibial H reflexes were obtained and paraspinal muscles were tested with a needle. IMPRESSION: [id number] peripheral neuropathy affecting sensory nerves in legs and feet with intact motor nerves and no evidence of a proximal lesion in her back. MD CINTHIA Colbert/RJ / [id number]
== END 2024-03-06 07:38 | disposition home or self-care (01) ==
LOC: HO.NEURO 07:37
PROVIDERS: PCP Family Medicine; Visit Provider Family Medicine
DX: M54.41 Lumbago with sciatica, right side (principal); G89.29 Other chronic pain
CPT/HCPCS: 95886; 95913

== ENCOUNTER 2024-04-02 11:06 | Day surgery (SDC) | payer MEDICAID, SELFPAY ==
[2024-04-02 11:52] VITALS: BMI 38.7
--- NOTE | 2024-04-02 13:46 | MHC.SHP ---
Pre-Procedural Eval Section A - 24 Hr Update-Section A only Date of Service: 04/02/24 The patient is an INPATIENT: No Changes since office visit: No Cold of Flu in the past 2 weeks, No New Medical Problems, No Changes in Medication and No Patient answered all questions The patient has been examined within 24 hours of the surgical procedure. The History & Physical has been completed within 30 days and I have reviewed it.: Yes Section B - Complete if H&P > 30 days Chief Complaint: Carpal tunnel syndrome, left upper limb Allergies: Allergies Allergy/AdvReac Type Severity Reaction Status Date / Time No Known Allergies Allergy Verified 04/02/24 11:53 [No Known Allergies*] Exam Exam Comment: Left carpal tunnel syndrome Plan Diagnosis/Plan: Unchanged I have reviewed the history and physical and performed a pertinent physical examination on my patient. No changes have occurred unless specified. Time Spent With Patient Time: Total time managing care of this patient today ____ minutes.
--- NOTE | 2024-04-02 13:47 | W.PM.OPN ---
Operative Note Operative Note Date of Service: 04/02/24 Narrative: Preop diagnosis: 1. Left Carpal tunnel syndrome Postop diagnosis: same Procedure: 1. Left Carpal tunnel release Surgeon: Kristen Thomas MD Anesthesia: local block using 1% lidocaine with epinephrine Findings: Thickened transverse carpal ligament. EBL: Less than 5 mL Specimens: None Complications: None Disposition: Brought to recovery room in stable condition Plan: Follow-up for 10-14 days for wound check and suture removal Indications: The patient is 53 years old, with left carpal tunnel syndrome that has been unresponsive to nonoperative management. The risks and benefits of operative treatment including but not limited to risk of damage to blood vessels, nerves, tendons, infection, persistent pain, persistent symptoms, or possible need for additional surgery were discussed with the patient and the patient wishes to proceed with surgery. Procedure: Once consent was obtained a local block was performed using a combination of 1% lidocaine with epinephrine. The patient was then brought back to the operating suite and placed on the operative table in supine position. The left upper extremity was prepped and draped in a standard surgical fashion. Once assured that we had a good block, a 2.0 cm longitudinal incision was made centered over the carpal tunnel. The incision was made through the skin to the subcutaneous tissues using a #15 blade. Dissection was made down to the level of the transverse carpal ligament with care being taken to protect the palmar cutaneous nerve. Once the transverse carpal ligament was clearly visualized, a longitudinal incision was made in the transverse carpal ligament 1st using a #15 blade, then using tenotomy scissors under direct visualization. Care was taken to look for and protect the motor branch of the median nerve when seen in this area. Once satisfied with our carpal tunnel release the wound was copiously irrigated with normal saline and hemostasis was obtained with a brief period of local pressure. The skin edges were reapproximated with some 5.0 nylon suture material and a sterile dressing was applied. The patient appears to have tolerated the procedure well and with no complications. All digits were well vascularized at the conclusion of the case.
[2024-04-02 15:28] VITALS: BP 154/77; PULSE 80; RESP 20; O2SAT 97
== END 2024-04-02 15:30 | disposition home or self-care (01) ==
PROVIDERS: PCP Family Medicine; Visit Provider Orthopaedic Surgery
PROC: (CPT 64721; principal; 2024-04-02 12:40)
DX: G56.02 Carpal tunnel syndrome, left upper limb (principal)
CPT/HCPCS: 64721; J0171

== ENCOUNTER → 2024-04-02 11:06 | Outpatient (BNV) | payer MEDICAID, SELFPAY | PROVIDERS: PCP Family Medicine; Visit Provider Orthopaedic Surgery | DX: G56.02 Carpal tunnel syndrome, left upper limb (principal) | CPT/HCPCS: 64721 ==

== ENCOUNTER 2024-04-17 13:31 | Outpatient (AMB) | payer MEDICAID, SELFPAY ==
[2024-04-17 13:46] VITALS: BMI 38.7
--- NOTE | 2024-04-17 13:46 | MHC.OFFVIS ---
Vital Signs 04/17/24 13:46 Height 5 ft 1 in Weight 205 lb BMI 38.7 Handedness Right Intake Visit Reasons: PO-Lt CTR 04/02/24 Intake Note: Viry is a 53 year old right hand dominant female who presents today post operatively s/p Left CTR 04/02/24. Sutures were removed and steri strips were applied. Patient reports her symptoms improved. She is having some discomfort near the incision site. Patient finds relief with taking ibuprofen and Tylenol. Allergies No Known Allergies [No Known Allergies*] Allergy (Verified 04/17/24 13:47) HPI HPI PO-Lt CTR 04/02/24: Details: Patient is a 53 YO female who presents for f/u of L CTR on 04/02/[address] Thomas Patient reports that her left hand is doing well, and that her pain has been reduced significantly since surgery She reports that her sensation is now normal in her L hand all of the time Patient reports that she is now interested in having carpal tunnel release done on her R hand She reports that she experiences numbness, tingling, and pain in her R hand, primarily in the median nerve distribution. Symptoms intermittent, but daily, worse at night, wakes her from sleep most nights She reports that these symptoms are extremely similar to symptoms she was experiencing in her L hand [facility] Medical History Mild depression Chronic low back pain Diverticulosis Chronic gastroesophageal reflux disease Intermittent asthma History of panic disorder Hx of allergic rhinitis Surgical History Hx of cholecystectomy Hx of lithotripsy History of inguinal hernia Hx of section Family History Father No problems noted. Mother No problems noted. Social History Alcohol intake: current Alcohol intake frequency: does not drink Patient Tobacco Use Status: Never used Tobacco Review of Systems Const All systems reviewed & are unremarkable except as noted in HPI and below Physical Exam Vital Signs: BMI result Body Mass Index 38.7 Const Other: Patient is alert, oriented, cooperative, and in no acute distress HEENT Head: Yes normocephalic and Yes atraumatic Resp Effort & Inspection: normal respiratory effort and able to speak in complete sentences Cardio Jugular venous distension: no JVD Neuro General: gait normal Cognition (Neuro): normal cognition Extrem Other: Patient was alert oriented and in no acute distress Left hand Surgical incision healing well with no erythema drainage or evidence of infection. Sensation intact and normal to the tips of all digits. Patient is able to flex and extend all fingers, make a tight fist Good finger cross Sutures removed, Steri-Strips in place Right hand Neuro: Patient reports no numbness in the median nerve distribution this time. Ulnar, radial nerves motor and sensory intact and sensation is normal to the tips of all digits. ROM: Patient is able to flex and extend all fingers, make a tight fist Good finger cross Skin: No lacerations or abrasions. General: No ecchymosis, erythema, or evidence of infection. Psych Appearance: grossly normal Mental Status: mental status grossly normal Assessment & Plan Assessment & Plan (1) Carpal tunnel syndrome of right wrist: Code(s): G56.01 - Carpal tunnel syndrome, right upper limb Category: Medical (2) Carpal tunnel syndrome of left wrist: Code(s): G56.02 - Carpal tunnel syndrome, left upper limb Category: Medical Plan 1. Left Carpal tunnel syndrome, status post release DOS: 04/02/2024 Now with normal sensation Patient doing well postoperatively. I educated the patient about the postoperative course and wound care. Good hand range of motion, we will continue to work on hand range of motion Patient should not lift anything heavier than a cell phone for 2 more weeks. Patient is not working, but requests note describing procedure for social security. Patient can follow-up p.r.n. with any acute concerns 2. Carpal tunnel syndrome, right Symptoms intermittent, but daily, worse at night I educated her about this condition We discussed operative and non operative treatment options and she would like to proceed with surgery The risks and benefits of operative treatment were discussed with the patient and the patient wishes to proceed with surgery. These risks include, but are not limited to, risk of damage to blood vessels, nerves, tendons, infection, recurrence, incomplete relief of preoperative symptoms, persistent pain, possible need for further surgery, and the risks associated with regional blocks and/or anesthesia. Plan is to take the patient to the operating room at some point in the next few weeks for the following procedures: 1. Right carpal tunnel release, under local anesthesia All of the preoperative paperwork including the consent was discussed today. All of the patient's questions were answered in the clinic today. The patient understands that they will be in contact with our surgical specialist to discuss scheduling their procedure. Patient denies diabetes, blood thinners, asthma, heart issues, lung issues, kidney issues, or current smoking. Coding Level of Care Code Global (49830) Diagnoses Carpal tunnel syndrome of right wrist G56.01 Carpal tunnel syndrome of left wrist G56.02
== END 2024-04-17 14:07 | disposition home or self-care (01) ==
PROVIDERS: PCP Family Medicine
DX: G56.03 Carpal tunnel syndrome, bilateral upper limbs (principal)
CPT/HCPCS: 99024

== ENCOUNTER → 2024-04-17 13:31 | Outpatient (BNVA) | payer MEDICAID, SELFPAY | PROVIDERS: PCP Family Medicine | DX: Z48.02 Encounter for removal of sutures (principal); G56.03 Carpal tunnel syndrome, bilateral upper limbs | CPT/HCPCS: 99212 ==

== ENCOUNTER 2024-05-23 09:24 | Outpatient (AMB) | payer MEDICAID, SELFPAY ==
[2024-05-23 09:46] VITALS: BMI 38.7
--- NOTE | 2024-05-23 09:46 | MHC.OFFVIS ---
Vital Signs 05/23/24 09:46 Height 5 ft 1 in Weight 205 lb BMI 38.7 Intake Visit Reasons: New problem Rt knee pain instability Intake Note: Viry a 53 year old female who presents today with daughter for an evaluation of right knee pain. Patient reports intermittent pain that has been present for about a year ago. Denies injury. 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 Her pain is located at the anterior aspect of knee and increases with going up stairs. Finds some relief with acetaminophen. Hx of back pain. 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: Labor Relations Consultant Offered & Declined Allergies No Known Allergies [No Known Allergies*] Allergy (Verified 05/23/24 09:55) Medication List - Last Reconciled 05/23/24 by Melissa Leyva PA-C acetaminophen 650 mg PO Q6H PRN baclofen 10 mg PO BEDTIME diclofenac sodium 1% (Arthritis Pain (diclofenac)) 2 grams topical QID famotidine 20 mg PO BEDTIME gabapentin 100 mg PO BEDTIME hydroxyzine HCl 25 mg PO BEDTIME pyridoxine (vitamin B6) 100 mg PO DAILY 90 days HPI HPI New problem Rt knee pain instability : Details: Viry is a 53-year-old female who presents today, accompanied by her daughter, for an evaluation of right knee pain. She claims that the pain has been sporadic since around a year ago. She denies any injury. 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 Her pain is located at the anterior aspect of knee and gets worse when she climbs stairs and even prolonged standing makes the pain worse. She finds mild relief with acetaminophen. She has a history of back pain. [facility] Medical History Mild depression Chronic low back pain Diverticulosis Chronic gastroesophageal reflux disease Intermittent asthma History of panic disorder Hx of allergic rhinitis Surgical History Hx of cholecystectomy Hx of lithotripsy History of inguinal hernia Hx of section Family History Father No problems noted. Mother No problems noted. Social History Alcohol intake: current Alcohol intake frequency: does not drink Patient Tobacco Use Status: Never used Tobacco Review of Systems Const All systems reviewed & are unremarkable except as noted in HPI and below Physical Exam Vital Signs: BMI result Body Mass Index 38.7 Const General: cooperative, healthy appearing, comfortable and no acute distress Orientation/consciousness: patient oriented x3 Neck Neck: Yes normal visual inspection and Yes no JVD Chest Chest palpation & inspection: normal inspection of the chest Resp Effort & Inspection: normal respiratory effort Auscultation: clear to auscultation bilaterally, crackles (no), rales (no), rhonchi (no) and wheezes (no) Cardio Jugular venous distension: no JVD Rate: regular rate Rhythm: regular rhythm Heart sounds: S1 normal heart sound present, S2 normal heart sound present, Murmur heart sound present (no) and Rub heart sound present (no) Neuro General: patient oriented x3 Extrem Other: Right knee: Skin intact, no erythema or joint effusion. Tenderness along the lateral retropatellar joint line. Full ROM with crepitus. Negative [place]?s. No ligamentous laxity. NVI. General: Yes normal to inspection, Yes no pedal edema and Yes no calf tenderness Psych Appearance: grossly normal Mental Status: mental status grossly normal Speech and movement: Normal speech and movement present Results Reviewed Results Reviewed: Xrays were obtained in the office today and personally reviewed by me of the right knee show pf oa Assessment & Plan Assessment & Plan (1) Patellofemoral arthritis of right knee: Code(s): M17.11 - Unilateral primary osteoarthritis, right knee Category: Medical Plan We discussed options which include PT, NSAIDs and injections. The patient will defer on the injection today and proceed with PT and NSAIDs. If symptoms persist, she will contact me for an injection, otherwise, PRN. Orders: Orders PT Evaluation and Treatment Today M17.11 - Unilateral primary osteoarthritis, right knee XR knee RT 1V Today M25.561 - Pain in right knee Patient Instructions: Scribed for Melissa Leyva PA-C, by Kayleen Chan pediatrician/medical doctor, on 05/23/2024 at 9:45 AM EST. IMelissa PA-C, have personally reviewed and agree with the information entered by the scribe. Coding Level of Care Code Est Pt Level 3 (45741) Diagnoses Patellofemoral arthritis of right knee M17.11
== END 2024-05-23 11:08 | disposition home or self-care (01) ==
PROVIDERS: PCP Family Medicine; Visit Provider Physician Assistant
DX: M17.11 Unilateral primary osteoarthritis, right knee (principal)
CPT/HCPCS: 99213

== ENCOUNTER 2024-05-23 09:24 | Outpatient (REF) | payer MEDICAID, SELFPAY ==
--- NOTE | ~2024-05-23 | XR_ITS ---
EXAMINATION: X-ray right knee CLINICAL INFORMATION: Pain COMPARISON: X-ray 02/15/2024 TECHNIQUE: Right knee patellar sunrise, one view FINDINGS: Anatomic alignment. Marginal osteophytes. Limited evaluation the joint space due to positioning. XR/XR knee RT 1V IMPRESSION: Marginal osteophytes in the patellofemoral joint. Study is assigned for dictation on June 11, 2024
== END 2024-05-23 09:25 | disposition home or self-care (01) ==
LOC: HO.HOSX 09:24
PROVIDERS: PCP Family Medicine; Visit Provider Physician Assistant
DX: M17.11 Unilateral primary osteoarthritis, right knee (principal)
CPT/HCPCS: 73560; 99212

== ENCOUNTER 2024-08-09 09:00 | Outpatient (RCR) | payer MEDICAID, SELFPAY | END 2024-09-28 09:51 | disposition home or self-care (01) | LOC: HO.PT 09:00 | PROVIDERS: PCP Family Medicine; Visit Provider Physician Assistant | DX: M17.11 Unilateral primary osteoarthritis, right knee (principal) | CPT/HCPCS: 97110; 97140; 97161; 97530; 97535 ==

== ENCOUNTER 2024-08-23 06:48 | Day surgery (SDC) | payer MEDICAID, SELFPAY ==
[2024-08-23 07:19] VITALS: BMI 39.7
--- NOTE | 2024-08-23 07:59 | P.OP_ITS ---
Operative Note Operative Note Date of Service: 08/23/24 Narrative: Preop diagnosis: 1. Right Carpal tunnel syndrome Postop diagnosis: same Procedure: 1. Right Carpal tunnel release Surgeon: Kristen Thomas MD Supervisor Pre Wave: Cooper HALE Anesthesia: local block using 1% lidocaine with epinephrine Findings: Thickened transverse carpal ligament. EBL: Less than 5 mL Specimens: None Complications: None Disposition: Brought to recovery room in stable condition Plan: Follow-up for 10-14 days for wound check and suture removal Indications: The patient is amputation 53 years old, with right carpal tunnel syndrome that has been unresponsive to nonoperative management. The risks and benefits of operative treatment including but not limited to risk of damage to blood vessels, nerves, tendons, infection, persistent pain, persistent symptoms, or possible need for additional surgery were discussed with the patient and the patient wishes to proceed with surgery. Procedure: Once consent was obtained a local block was performed using a combination of 1% lidocaine with epinephrine. The patient was then brought back to the operating suite and placed on the operative table in supine position. The right upper extremity was prepped and draped in a standard surgical fashion. Once assured that we had a good block, a 2.0 cm longitudinal incision was made centered over the carpal tunnel. The incision was made through the skin to the subcutaneous tissues using a #15 blade. Dissection was made down to the level of the transverse carpal ligament with care being taken to protect the palmar cutaneous nerve. Once the transverse carpal ligament was clearly visualized, a longitudinal incision was made in the transverse carpal ligament 1st using a #15 blade, then using tenotomy scissors under direct visualization. Care was taken to look for and protect the motor branch of the median nerve when seen in this area. Once satisfied with our carpal tunnel release the wound was copiously irrigated with normal saline and hemostasis was obtained with a brief period of local pressure. The skin edges were reapproximated with some 5.0 nylon suture material and a sterile dressing was applied. The patient appears to have tolerated the procedure well and with no complications. All digits were well vascularized at the conclusion of the case.
--- NOTE | 2024-08-23 07:59 | MHC.SHP ---
Pre-Procedural Eval Section A - 24 Hr Update-Section A only Date of Service: 08/23/24 The patient is an INPATIENT: No Changes since office visit: No Cold of Flu in the past 2 weeks, No New Medical Problems, No Changes in Medication and No Patient answered all questions The patient has been examined within 24 hours of the surgical procedure. The History & Physical has been completed within 30 days and I have reviewed it.: Yes Section B - Complete if H&P > 30 days Chief Complaint: Carpal tunnel syndrome, right upper limb Allergies: Allergies Allergy/AdvReac Type Severity Reaction Status Date / Time No Known Allergies Allergy Verified 05/23/24 09:55 [No Known Allergies*] Plan Diagnosis/Plan: Unchanged I have reviewed the history and physical and performed a pertinent physical examination on my patient. No changes have occurred unless specified. Time Spent With Patient Time: Total time managing care of this patient today ____ minutes.
[2024-08-23 09:12] VITALS: BP 128/67; PULSE 65; RESP 16
== END 2024-08-23 09:23 | disposition home or self-care (01) ==
PROVIDERS: PCP Family Medicine; Visit Provider Orthopaedic Surgery
PROC: (CPT 64721; principal; 2024-08-23 08:10)
DX: G56.01 Carpal tunnel syndrome, right upper limb (principal); J45.909 Unspecified asthma, uncomplicated; F32.A Depression, unspecified; G89.29 Other chronic pain; M54.50 Low back pain, unspecified; Z98.890 Other specified postprocedural states
CPT/HCPCS: 64721; J0171; J2003

== ENCOUNTER → 2024-08-23 06:48 | Outpatient (BNV) | payer MEDICAID, SELFPAY | PROVIDERS: PCP Family Medicine; Visit Provider Orthopaedic Surgery | DX: G56.01 Carpal tunnel syndrome, right upper limb (principal) | CPT/HCPCS: 64721 ==

== ENCOUNTER 2024-09-05 09:35 | Outpatient (AMB) | payer MEDICAID, SELFPAY ==
--- NOTE | 2024-09-05 09:50 | A.OFFVIS_ITS ---
Vital Signs 09/05/24 09:55 Height 5 ft 1 in Weight 209 lb BMI 39.5 Handedness Right Intake Visit Reasons: PO RT CTR 08/23/24 AR Intake Note: Viry is a 53 year old right hand dominant female who presents today post operatively s/p Right Carpal tunnel release w/ Dr Thomas DOS: 08/23/2024. Patient report she feels is still feeling some numbness and tingling in her right hand. She feels sharp sudden stabbing sensation in her right wrist occasionally. She says due to her having to use her left hand more often because of the right hand CTR she is also starting to feel some of her numbness and tingling return in the left hand along her 5th digit. Denies finger locking. Denies drainage from incision. Redness around incision site. Drafter Electromechanical Required: Yes Drafter Electromechanical Language: Business Transformation Manager Name: [id number] Allergies No Known Allergies [No Known Allergies*] Allergy (Verified 09/05/24 09:55) HPI HPI PO RT CTR 08/23/24 AR: Details: Patient is a 53-year-old female who presents for postoperative evaluation status post right carpal tunnel release, DOS 08/23/[address] Thomas. Patient reports that she is still experiencing pain around the incision site, but her numbness and tingling have completely resolved. Patient does report that she noticed some redness around the sutures. Patient is able to make a closed fist. No other acute complaints or concerns at this time. [facility] Medical History (Updated 09/05/24 @ 09:56 by TRACY Cnon) Carpal tunnel syndrome of left wrist Mild depression Chronic low back pain Diverticulosis Chronic gastroesophageal reflux disease Intermittent asthma History of panic disorder Hx of allergic rhinitis Surgical History Hx of cholecystectomy Hx of lithotripsy History of inguinal hernia Hx of section Family History Father No problems noted. Mother No problems noted. Social History Alcohol intake: current Alcohol intake frequency: does not drink Patient Tobacco Use Status: Never used Tobacco Physical Exam Vital Signs: BMI result Body Mass Index 39.5 Extrem Other: Neuro: Normal sensation of the tips of all digits of the right hand at this time No thenar or intrinsic wasting. Good APB muscle firing and good finger cross. Vascular: Capillary refill brisk. Pain: Patient does report tenderness to palpation, particularly at the proximal aspect of this incision site ROM: Patient can make a fist and extend all their digits. Skin: No lacerations or abrasions noted. General: No ecchymosis. Mild erythema surrounding the suture sites around the incision No discharge or other evidence of infection noted Assessment & Plan Assessment & Plan (1) Carpal tunnel syndrome of right wrist: Code(s): G56.01 - Carpal tunnel syndrome, right upper limb Category: Medical Plan 1. Right carpal tunnel syndrome status post carpal tunnel release DOS 08/23/2024 Patient appears to be recovering well postoperatively Patient is educated about the typical recovery course At this time, patient was sent a one-week course of Augmentin out of an abundance of precaution due to the redness and tenderness she is experiencing at her surgery site Patient is advised to take this with food twice a day for 7 days Patient will follow-up in 1 week for wound check Patient was amenable to this plan Medications: New amoxicillin-pot clavulanate 875-125 mg 1 tab PO BID 7 days 14 tabs 0RF Coding Level of Care Code Global (51838) Diagnoses Carpal tunnel syndrome of right wrist G56.01
[2024-09-05 09:55] VITALS: BMI 39.5
== END 2024-09-05 10:32 | disposition home or self-care (01) ==
PROVIDERS: PCP Family Medicine
DX: G56.01 Carpal tunnel syndrome, right upper limb (principal)
CPT/HCPCS: 99024

== ENCOUNTER → 2024-09-05 09:35 | Outpatient (BNVA) | payer MEDICAID, SELFPAY | PROVIDERS: PCP Family Medicine | DX: G56.01 Carpal tunnel syndrome, right upper limb (principal) | CPT/HCPCS: 99212 ==

== ENCOUNTER 2024-09-12 08:04 | Outpatient (AMB) | payer MEDICAID, SELFPAY ==
--- NOTE | 2024-09-12 08:26 | MHC.OFFVIS ---
Intake Visit Reasons: PO RT CTR 08/23/24 AR-wound check one week Intake Note: Viry is a 53 year old right hand dominant female who presents today post operatively and for a wound check s/p Right Carpal tunnel release w/ Dr Thomas DOS: 08/23/2024. Pt states she completed her course of antibiotics. Display Artist Required: Yes Display Artist Language: Hemodialysis Technician Services: Display Artist Present Display Artist Name: WILBERT Sanchez/SHELDON Information Interpreted: clinical only Allergies No Known Allergies [No Known Allergies*] Allergy (Verified 09/12/24 08:27) HPI HPI PO RT CTR 08/23/24 AR-wound check one week: Details: Patient is a 53-year-old female who presents for one-week follow-up wound check status post right carpal tunnel release, DOS 08/23/[address] Thomas. Today, the patient reports that she is feeling much better in terms of the pain she was experiencing at her incision site, although she still does have some persistent redness. The patient does report that she has had some intermittent numbness when she is sleeping in the operative hand. No other acute complaints or concerns at this time. [facility] Medical History (Updated 09/05/24 @ 09:56 by TRACY Conn) Carpal tunnel syndrome of left wrist Mild depression Chronic low back pain Diverticulosis Chronic gastroesophageal reflux disease Intermittent asthma History of panic disorder Hx of allergic rhinitis Surgical History Hx of cholecystectomy Hx of lithotripsy History of inguinal hernia Hx of section Family History Father No problems noted. Mother No problems noted. Social History Alcohol intake: current Alcohol intake frequency: does not drink Patient Tobacco Use Status: Never used Tobacco Review of Systems Const All systems reviewed & are unremarkable except as noted in HPI and below Physical Exam Extrem Other: Neuro: Normal sensation of the tips of all digits of the right hand at this time No thenar or intrinsic wasting. Good APB muscle firing and good finger cross. Vascular: Capillary refill brisk. Pain: Patient does report tenderness to palpation, particularly at the proximal aspect of this incision site ROM: Patient can make a fist and extend all their digits. Skin: No lacerations or abrasions noted. General: No ecchymosis. Mild erythema surrounding the suture sites around the incision, consistent with hyperemic reaction to incision site No discharge or other evidence of infection noted Assessment & Plan Assessment & Plan (1) Carpal tunnel syndrome of right wrist: Code(s): G56.01 - Carpal tunnel syndrome, right upper limb Category: Medical Plan 1. Right carpal tunnel syndrome status post carpal tunnel release DOS 08/23/2024 Patient appears to be recovering well postoperatively Patient is educated about the typical recovery course At this time, patient is informed that it was likely hyperemia that is causing the redness around her incision site, and I have no further concerns for an active infection at this time. Patient was advised however that she should continue to finish her course of antibiotics Patient was amenable to this plan Patient is also advised that she should follow-up if the very occasional numbness and tingling she has been experiencing in her right hand becomes persistent Patient will follow-up as needed with any acute concerns Coding Level of Care Code Global (98333) Diagnoses Carpal tunnel syndrome of right wrist G56.01
== END 2024-09-12 08:34 | disposition home or self-care (01) ==
PROVIDERS: PCP Family Medicine
DX: G56.01 Carpal tunnel syndrome, right upper limb (principal)
CPT/HCPCS: 99024

== ENCOUNTER → 2024-09-12 08:04 | Outpatient (BNVA) | payer MEDICAID, SELFPAY | PROVIDERS: PCP Family Medicine | DX: G56.01 Carpal tunnel syndrome, right upper limb (principal) | CPT/HCPCS: 99212 ==

== ENCOUNTER 2024-11-21 11:30 | Outpatient (REF) | payer MEDICAID, SELFPAY ==
[2024-11-21 13:56] LABS: Hematocrit 43.4 % (37.0-47.0); Hemoglobin 13.9 g/dl (12.0-16.0); Mean Corpuscular Hemoglobin 27.6 pg (27.0-33.0); Mean Corpuscular Volume 86.1 fL (80.0-98.0); Mean Platelet Volume 9.5 fL (9.4-12.3); Platelet Count 373 X10*3/uL (160-400); Red Blood Count 5.04 X10*6/uL (4.20-5.50); Red Cell Distribution Width 13.8 % (11.0-16.0); White Blood Count 10.2 X10*3/uL (4.8-10.8)
--- OUTSIDE RECORDS SUMMARY | 2024-11-21 13:58 | XMS_ITS | Encounter Summary ---
Author Organization [facility] Address [address] [place] [address] [address] [place] [address] Care Team Providers Care Capital Markets Specialist Name Role Phone Meaghan Bhat DO Primary Care Provider Reason for Referral * Imaging (Routine) - Authorized Specialty Diagnoses / Procedures Referred By Ana calvillo Referred To Contact Radiology Diagnoses Nephrolithiasis Procedures US RENAL BI Meaghan Bhat DO [address] [place] [address] Phone: tel: fax: [address] Phone: tel: fax: Referral ID Status Reason Start Date Expiration Date V isits Requested Visits Authorized [id number] Authorized 11/21/2024 11/21/2025 1 1 * Consultation (Routine) - Authorized Specialty Diagnoses / Procedures Referred By Ana t Referred To Contact Family Medicine Diagnoses Skin lesions Meaghan Bhat DO [address] [place] [address] Phone: tel: fax: Referral ID Status Reason Start Date Expiration Date Visits Requested Visits Authorized [id number] Authorized Specialty Services Required 11/21/2024 11/21/2025 1 1 * Hospital - Outpatient (Routine) - Authorized Specialty Diagnoses / Procedures Referred By Ana t Referred To Contact Diagnoses Sleep-disordered breathing Procedures Polysomnography Meaghan Bhat DO [address] [place] [address] Phone: tel: fax: [facility] Referral ID Status Reason Start Date Expiration Date V isits Requested Visits Authorized [id number] Authorized 11/21/2024 11/21/2025 1 1 * Consultation (Urgent) - Pending Review Specialty Diagnoses / Procedures Referred By Contkin calvillo Referred To Contact Pain Medicine Diagnoses Chronic bilateral low back pain with sciatica, sciatica laterality unspecified Meaghan Bhat DO [address] [place] [address] Phone: tel: fax: Referral ID Status Reason Start Date Expiration Date Visits Requested Visits Authorized [id number] Pending Review Specialty Services Required 11/21/2024 11/21/2025 1 1 * Consultation (Urgent) - Pending Review Specialty Diagnoses / Procedures Referred By Ana calvillo Referred To Contact Breast Surgery Diagnoses Abnormal mammogram of left breast Meaghan Bhat DO [address] [place] [address] Phone: tel: fax: Referral ID Status Reason Start Date Expiration Date Visits Requested Visits Authorized [id number] Pending Review Specialty Services Required 11/21/2024 11/21/2025 1 1 Encounter Details Date Type Department Care Team (Late st Contact Info) Description 11/21/2024 9:30 AM EST Office Visit [facility] [address] [place] [phone] Meaghan Bhat DO [address] [place] [phone] Routine history and physical examination of adult (Primary Dx); Panic disorder; Mild intermittent asthma without complication; Nephrolithiasis; Bilateral carpal tunnel syndrome; Chronic bilateral low back pain with sciatica, sciatica laterality unspecified; Chronic pain of right knee; Chronic GERD; Skin lesions; Sleep-disordered breathing; Abnormal mammogram of left breast; BMI 38.0-38.9,adult; Dietary counseling; Exercise counseling Social History Tobacco Use Types Packs/Day Years Used Date Smoking Tobacco: Never Passive Smoke Exposure: Never Smokeless Tobacco: Never Depression Answer Date Recorded Patient Health Questionnaire-9 Score 6 11/21/2024 Patient Health Questionnaire-9 Score 6 11/21/2024 Last PHQ-9: Questionnaire Data Not on file 0 11/21/2024 Housing Stability Answer Date Recorded What is your housing situation today? I have osman cartagena 08/19/[address] you li ve. Do you have problems with any of the following? None of the above 08/19/2023 Food Insecurity Answer Date Recorded Within the past 12 months, y ou worried that your food would run out before you got money to buy more: Never True 08/19/2023 Within the past 12 months,th e food you bought just didn't last and you didn't have enough money to get more: Never True Transportation Answer Date Recorded In the past 12 months, has l ack of transportation kept you from medical appts, meetings, work or from getting things needed for daily living? No 11/09/2024 Utilities Answer Date Recorded In the past 12 months, has t he electric, gas, oil or water company threatened to shut off services in your home? No 11/09/2024 Depression Answer Date Recorded Patient Health Questionnaire-2 Score 1 11/21/2024 Internet Access Answer Date Recorded Internet Access Q1 Yes 06/25/2024 Internet Access Q2 Not on file 06/25/2024 Comments Unknown Sex and Gender Information Value Date Recorded Sex Assigned at Female 08/23/2022 10:33 AM EDT Legal Sex Female 10:33 AM EDT Gender Identity Female 08/23/2022 10:33 AM EDT Sexual Orientation Straight 08/23/2022 10 :33 AM EDT documented as of this encounter Last Filed Vital Signs Vital Sign Reading Time Taken Comments Blood Pressure 123/72 11/21/2024 9:39 AM EST Pulse 73 11/21/2024 9:39 AM EST Temperature 36.1 ??C (96.9 ??F) 11/21/2024 9:39 AM ES T Respiratory Rate 20 11/21/2024 9:39 AM EST Oxygen Saturation - - Inhaled Oxygen Concentration - - Weight 92.6 kg (204 lb 4 oz) 11/21/2024 9:39 AM EST Height 154.9 cm (5' 1 ) 11/21/2024 9:39 AM EST Body Mass Index 38.59 11/21/2024 9:39 AM EST documented in this encounter Progress Notes * Meaghan Bhat, DO - 11/21/2024 9:30 AM EST SUBJECTIVE Viry Marti is a 54 y.o. female who presents for PE for Day Program. She has not yet completed her blood work from last visit. She saw ortho in [place] for her knee pain and was dx'd with patellofemoral arthritis. She declined injection and was referred to PT. She finished PT. She says her knee pain is persistent, but not as badas her back. She had R-carpal tunnel surgery in JUL. She recovered well post-operatively and was advised f/u prn. She says that her hands are much better since she had the surgeries. She had eye exam in JUL at [facility]. She was told that she had small cataracts. She c/o terrible LBP. She says she was supposed to get a referral to [facility], but she has not receivedanything yet. She finds the tylenol and the voltaren and patches to help a lot but she ran out of meds. She had to stop taking one of the medications because it was making her too drowsy. Her told her that she has bad snoring. She had mammo a couple of weeks which was again BIRADS 3. Radiology suspects that she has two complicated cysts in the L breast. She says it doesn't hurt, but sometimes she can feel a burning sensation. She denies any skin changes. She is concerned that they could not tell her if it was benign or malignant and she has family h/o breast cancer. She says she was given derm appt but she had to cancel her d/t her hand surgery, so she needs to reschedule. She doesn't recall when she last saw urology. She lives with her and 2 children. She has been with her for 24 years. She has a 22 y/o daughter, who is her COMPUTING SERVICES DIRECTOR, and 14 y/o son. 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 She has never smoked, she does not drink alcohol or use any drugs. Review of Systems Constitutional: Negative for activity change, appetite change, chills, fever and unexpected weight change. Respiratory: Negative for cough and shortness of breath. Cardiovascular: Negative for chest pain, palpitations and leg swelling. Gastrointestinal: Negative for abdominal pain, diarrhea, nausea and vomiting. Musculoskeletal: Positive for arthralgias and back pain. Neurological: Negative for weakness and headaches. Patient Active Problem List Diagnosis Allergic rhinitis Panic disorder Mild intermittent asthma Chronic gastroesophageal reflux disease Diverticulosis Nephrolithiasis BMI 38.0-38.9,adult Chronic low back pain Mild depression Status post carpal tunnel release of both wrists De Quervain's disease (radial styloid tenosynovitis) Medial epicondylitis, left elbow No Known Allergies History reviewed. No pertinent past medical history. Past Surgical History: Procedure Laterality Date ABDOMINAL HERNIA REPAIR CARPAL TUNNEL RELEASE Left 04/02/2024 CARPAL TUNNEL RELEASE Right 08/23/2024 SECTION, LOW TRANSVERSE 2001 SECTION, LOW TRANSVERSE 2009 CHOLECYSTECTOMY 2002 COLONOSCOPY 2019 PERCUTANEOUS NEPHROSTOLITHOTOMY TUBAL LIGATION Family History Problem Relation Name Age of Onset Hypertension Mother Other (Prediabetes) Mother Hypertension Father Arthritis Brother Breast cancer Mother's Sister Heart disease Mother's Sister Other (Gastric cancer) Father's Brother Heart disease Maternal Grandmother Heart disease Paternal Grandmother COPD Paternal Grandmother Prostate cancer Paternal Grandfather OBJECTIVE Visit Vitals BP 123/72 (BP Location: Left arm, Patient Position: Sitting, BP Cuff Size: Adult) Pulse 73 Temp 96.9 ??F (36.1 ??C) (Temporal) Resp 20 Ht 5' 1 (1.549 m) Wt 204 lb 4 oz (92.6 kg) BMI 38.59 kg/m?? Smoking Status Never BSA 2 m?? Physical Exam Constitutional: General: She is not in acute distress. Appearance: Normal appearance. HENT: Right Ear: External ear normal. Left Ear: Tympanic membrane, ear canal and external ear normal. Ears: Comments: Excess cerumen R ear canal Mouth/Throat: Pharynx: Oropharynx is clear. Eyes: Extraocular Movements: Extraocular movements intact. Conjunctiva/sclera: Conjunctivae normal. Pupils: Pupils are equal, round, and reactive to light. Cardiovascular: Rate and Rhythm: Normal rate and regular rhythm. Heart sounds: Normal heart sounds. No murmur heard. Pulmonary: Effort: Pulmonary effort is normal. Breath sounds: Normal breath sounds. No wheezing or rhonchi. Abdominal: General: Bowel sounds are normal. Palpations: Abdomen is soft. There is no mass. Tenderness: There is no abdominal tenderness. Musculoskeletal: Cervical back: Normal range of motion and neck supple. No tenderness. Lumbar back: Spasms present. No swelling, deformity or bony tenderness. Decreased range of motion. Negative right straight leg raise test and negative left straight leg raise test. Lymphadenopathy: Cervical: No cervical adenopathy. Skin: Findings: No rash. Neurological: General: No focal deficit present. Mental Status: She is alert and oriented to person, place, and time. Cranial Nerves: No cranial nerve deficit. Motor: No weakness. Gait: Gait normal. Psychiatric: Mood and Affect: Mood normal. Speech: Speech normal. Behavior: Behavior normal. Thought Content: Thought content normal. Patient Health Questionnaire-9 Score: 6 (11/21/2024 9:42 AM) Patient Health Questionnaire-2 Score: 1 (11/21/2024 9:42 AM) Thoughts that you would be better off or hurting yourself in some way: Not at all (11/21/2024 9:42 AM) The 10-year ASCVD risk score (Dru DUNCAN, et al., 2019) is: 2% Values used to calculate the score: Age: 54 years Sex: Female Is Non- : No Diabetic: No Tobacco smoker: No Systolic Blood Pressure: 123 mmHg Is BP treated: No HDL Cholesterol: 57 mg/dL Total Cholesterol: 223 mg/dL Assessment/Plan Diagnoses and all orders for this visit: Routine history and physical examination of adult -s/p flu vaccine AUG 2023, she declines repeat -she declines COVID vaccine -s/p Tdap AUG 2020 -s/p pneumovax NOV 2017 -s/p PCV20 AUG 2023 -s/p shingrix vaccine OCT 2020 -mammo BIRADS 26 OCT 2024 -pap nml/HPV negative SEP 2023 -colonoscopy with diverticulosis MAY 2020, repeat in 5 years per GI -A1c 5.9, LDL 151 AUG 2023->repeat prior to next visit as not yet done -STI/HIV screen negative AUG 2023 Panic disorder With mild depression in setting of worsening pain -she denies any SI/HI -she declines med management -cont coping skills -she declines referral to therapist -she will meet with clinician today Mild intermittent asthma without complication Controlled -cont albuterol prn Nephrolithiasis -renal US with 5mm non-obstructing R renal stone SEP 2023->referred for repeat -f/u with urology as scheduled, will get copy of eval as still not in chart Bilateral carpal tunnel syndrome s/p L CTR MAR 2024, s/p R CTR JUL 2024 with significant improvement in sx -f/u with ortho prn Chronic bilateral low back pain with sciatica, sciatica laterality unspecified With significant worsening -L-spine XR with mild multilevel lumbar spondylosis JAN 2024 -L-spine MRI with mild multilevel lumbar spondylosis, without significant spinal canal stenosis or high-grade neural foraminal stenosis, and mild L5-S1 R neural foraminal stenosis FEBRUARY 2024 -restart tylenol prn -change baclofen to tizanidine to help with mm spasm -restart diclofenac gel and lidocaine patches -trial low-dose amitriptyline nightly -referred to PM for eval -consider PT after PM -advised RTC if sx change or worsen Chronic pain of right knee s/p PT -R knee XR with mild degenerative changes JAN 2024 -cont pain meds as above -encouraged home exercises -f/u with ortho prn Chronic GERD Controlled -cont pepcid prn Skin lesions With increase in size, desiring removal -re-referred to derm for eval Sleep-disordered breathing With heavy snoring, possible JULIANN -referred for sleep study Abnormal mammogram of left breast Persistent BIRADS 3 mammo/US with 2 probable complicated cysts -referred to breast surgeon for eval BMI 38.0-38.9,adult -encouraged [id number] 5 Servings of fruit and vegetables each day 2 Hour limit of screen time 1 Hour of physical activity each day 0 Sugary drinks --Follow-up with me in 3 mos or sooner prn-- Current Outpatient Medications: acetaminophen (Tylenol 8 Hour) 650 MG ER tablet, Take 1 tablet (650 mg) by mouth every 8 (eight) hours if needed for mild pain., Disp: 60 tablet, Rfl: 3 albuterol 108 (90 Base) MCG/ACT inhaler, Inhale 1 puff every 6 (six) hours if needed for wheezing or shortness of breath., Disp: 18 g, Rfl: 1 amitriptyline (Elavil) 10 MG tablet, Take 0.5-1 tablets (5-10 mg) by mouth at bedtime., Disp: 30 tablet, Rfl: 3 Diclofenac Sodium 1 % gel, Apply 2 g topically if needed in the morning, at noon, in the evening, and at bedtime (pain)., Disp: 150 g, Rfl: 3 diphenhydrAMINE (BENADryl) 25 MG tablet, Take 1 tablet (25 mg) by mouth every 12 (twelve) hours if needed (cough)., Disp: 60 tablet, Rfl: 0 famotidine (Pepcid) 20 MG tablet, Take 1 tablet (20 mg) by mouth if needed in the morning and at bedtime for heartburn., Disp: 180 tablet, Rfl: 3 lidocaine (Lidoderm) 5 % patch, Apply 2 patches topically if needed each day for mild pain. Remove & discard patch within 12 hours or as directed by MD., Disp: 60 patch, Rfl: 3 Spacer/Aero-Holding Chambers (AeroChamber Holding Chamber) device, 1 each every 6 (six) hours if needed (wheezing)., Disp: 1 each, Rfl: 0 tiZANidine (Zanaflex) 2 MG tablet, Take 1 tablet (2 mg) by mouth if needed in the morning, at noon,and at bedtime for muscle spasms., Disp: 60 tablet, Rfl: 3 Scribe Attestation: Zach Narayanan, am serving as a scribe to document services personally performed by Meaghan Larose, based on the patient's response to questions by provider and provider's statements to me. Physicians Attestation: Meaghan Narayanan DO, have reviewed the information by the scribe, Zach Obrien, for accuracy and agree with its content. documented in this encounter Plan of Treatment Scheduled Orders Name Type Priority Associated Diagnoses Orde r Schedule T-SPOT??.TB Lab Routine Routine history and physical examination of adult Expected: 11/21/2024 (Approximate), Expires: 11/21/2025 Polysomnography [facility] Routine Sleep-disordered breathing Expected: 11/21/2024 (Approximate), Expires: 11/21/2025 RENAL BI Imaging Routine Nephrolithiasis Expected: 11/21/2024, Expires: 11/21/2025 Scheduled Referrals Name Type Priority Associated Diagnoses Orde r Schedule Referral to Breast Surgery Outpatient Referral Urgent Abnormal mammogram of left breast Expected: 11/21/2024 (Approximate), Expires: 11/21/2025 Referral to Pain Medicine Outpatient Referral Urgent Chronic bilateral low back pain with sciatica, sciatica laterality unspecified Expected: 11/21/2024 (Approximate), Expires: 11/21/2025 Referral to [facility] Derm Skin Adult Outpatient Referral Routine Skin lesions Expected: 11/21/2024 (Approximate), Expires: 11/21/2025 documented as of this encounter Visit Diagnoses Diagnosis Routine history and physical examination of adult- Primary Panic disorder Panic disorder without agoraphobia Mild intermittent asthma without complication Nephrolithiasis Calculus of kidney Bilateral carpal tunnel syndrome Carpal tunnel syndrome Chronic bilateral low back pain with sciatica, sciatica laterality unspecified Chronic pain of right knee Chronic GERD Skin lesions Sleep-disordered breathing Other sleep disturbances Abnormal mammogram of left breast BMI 38.0-38.9,adult Dietary counseling Dietary surveillance and counseling Exercise counseling documented in this encounter Additional Health Concerns Assessment Noted Time PHQ-9 Depression Total Score: 6 11/21/19 25 9:42 AM EST documented as of this encounter Care Teams Capital Markets Specialist Relationship Specialty Start Date End Date Meaghan Bhat DO [address] [place] [phone] PCP - General Family Medicine 02/18/20 documented as of this encounter
--- OUTSIDE RECORDS SUMMARY | 2024-11-21 13:58 | XMS_ITS | Clinical Summary ---
Author Organization [facility] Address [address] [place] [address] Care Team Providers Care Straddle Truck Operator Name Role Phone Unavailable Primary Care Provider Unavailabl e Surgical History Surgery Date Site/Laterality Comments TUBAL LIGATION PROCEDURE: HISTORICAL TUBAL LIGATION HERNIA REPAIR PROCEDURE: HISTORICAL HERNIA REPAIR/ING OTHER SURGICAL HISTORY PROCEDURE: TX UNLISTED PX MECKEL'S DIVERTICULUM & MESENTERY OTHER SURGICAL HISTORY PROCEDURE: TX RENAL NDSC NEPHROTOMY W/WO IRRIGATION SECTION PROCEDURE: HISTORICAL DELIVERY HYSTEROSCOPY 09/2019 PROCEDURE: TX HYSTEROSCOPY BX ENDOMETRIUM&/POLYPC W/WO D&C; COMMENT: with Dr. Ma, benign results Medical History Medical History Date Comments Asthma DX:Asthma Kidney disease DX:Kidney diseas e Panic attack DX:Panic attack Family History Medical History Relation Name Comments Other: epilepsy Father Other: kidney disease Father Prostate cancer Father Other: kidney diesease Mother Depression Son Other: kidney disease Son Relation Name Status Comments Father Mother Alive Son Alive Social History Tobacco Use Types Packs/Day Years Used Date Smoking Tobacco: Never Smokeless Tobacco: Never Alcohol Use Standard Drinks/Week Comments No 0 (1 standard drink = 0.6 oz pur e alcohol) Sex and Gender Information Value Date Recorded Sex Assigned at Not on file Gender Identity Not on file Sexual Orientation Not on file Obstetrics History Plan of Treatment Health Maintenance Due Date Last Done Comments DTaP,Tdap,and Td Vaccines (1 - Tdap) 1988 Hepatitis B Vaccines (1 of 3 - 19+ 3-dose series) 1988 Zoster Vaccines (1 of 2) 2019 Breast Cancer Screening 04/11/2021 04/11/2019 Cervical Cancer Screening: P ap Smear 03/30/2022 03/30/2019 Colorectal Cancer Screening: Colonoscopy 09/25/2022 Depression Screening 09/25/2022 HIV Screening 09/25/2022 Hepatitis C Screening 09/25/2022 Social Influencers of Health Screening 09/25/2022 COVID-19 Vaccine (2023-2 5 season) 2024 Influenza Vaccine (#1) 2024 HIB Vaccines Aged Out No longer eligi ble based on patient's age to complete this topic HPV Vaccines Aged Out No longer eligi ble based on patient's age to complete this topic Hepatitis A Vaccines Aged Out No long er eligible based on patient's age to complete this topic IPV Vaccines Aged Out No longer eligi ble based on patient's age to complete this topic MMR Vaccines Aged Out No longer eligi ble based on patient's age to complete this topic Meningococcal ACWY Vaccine Aged Out N o longer eligible based on patient's age to complete this topic Pneumococcal Vaccine: Pediat rics (0 to 5 Years) and At-Risk Patients (6 to 64 Years) Aged Out No longer eligi ble based on patient's age to complete this topic RSV Immunization Patients Un santa 20 months Aged Out No longer eligible b ased on patient's age to complete this topic Varicella Vaccines Aged Out No longer eligible based on patient's age to complete this topic Procedures Procedure Name Priority Date/Time Associated Diagnosis Comments DEIRDRE SCREENING DIGITAL Routine 04/11/2019 1:28 PM EDT Encounter for screening mammogram for malignant neoplasm of breast PAP SMEAR Routine 03/30/2019 from Last 3 Months or Most Recently Relevant to Health Maintenance Results * DEIRDRE SCREENING DIGITAL (04/11/2019 1:28 PM EDT) Anatomical Region Laterality Modality Mammography 04/11/2019 10:0 2 AM EDT Narrative 04/11/2019 1:[address] [facility] Diagnostic Imaging Department [address] [place] [address] [id number] Patient: ??VIRY DODGE ?/Age/Sex: 1970 - 48 - F Unit#: ??[id number] ? Location/Status: ??SPDIMAM/REG CLI ? Mnemonic/Ordering Site: ??DIGSC/SPMAM Ordering Physician: ??OLGACONCEPCIÓN ANIKETRoxanne Deirdre Screening Digital - 04/11/19 - 1041 EXAM: Deirdre Screening Digital EXAM DATE AND TIME: 04/11/2019 10:44 AM HISTORY: ??Screening. COMPARISON: ??Previous exams performed in [place] in 2013 are not available per the patient. TECHNIQUE: CC and MLO views of both breasts were obtained using full field digital mammography. Bilateral digital breast tomosynthesis was performed in the MLO projection. Computer aided detection with the GiveNext 7.2-H was employed. TISSUE DENSITY: c. The breasts are heterogeneously dense, which may obscure small masses. FINDINGS: No suspicious masses, grouped microcalcifications, or areas of architectural distortion are seen. The skin and vascularity are unremarkable. IMPRESSION: No mammographic evidence of malignancy is seen. A negative mammogram in the presence of a clinically suspicious palpable abnormality does not preclude the possibility of malignancy or alter the indications for biopsy. BI-RADS: ??Category 1: Negative RECOMMENDATION(S): 1: Routine screening mammogram BILATERAL in 1 year. 18521, 11078 3341F, 7025F Dictating Physician: ??BERNICE BOYD MD Electronically Signed by: ??BERNICE BOYD MD Dic Date/Time: ??04/11/19 1327 Sign date/Time: ??04/11/19 1328 Procedure Note Bernice Boyd - 10/12/2022 [facility] Diagnostic Imaging Department [address] [place] [address] Patient: VIRY DODGE /Age/Sex: 1970 - 48- F Unit#: [id number] Location/Status: SPDIMAM/REG CLI Mnemonic/Ordering Site: [facility] Ordering Physician: CONCEPCIÓN YEH CNM [facility] Screening Digital - 04/11/19 - 1042 EXAM: [facility] Screening Digital EXAM DATE AND TIME: 04/11/2019 10:44 AM HISTORY: Screening. COMPARISON: Previous exams performed in [place] in 2013 are notavailable per the patient. TECHNIQUE: CC and MLO views of both breasts were obtained using fullfield digital mammography. Bilateral digital breast tomosynthesis was performedin the MLO projection. Computer aided detection with the GiveNext 7.2-Hwas employed. TISSUE DENSITY: c. The breasts are heterogeneously dense, which mayobscure small masses. FINDINGS: No suspicious masses, grouped microcalcifications, or areas ofarchitectural distortion are seen. The skin and vascularity are unremarkable. IMPRESSION: No mammographic evidence of malignancy is seen. A negative mammogram in the presence of a clinically suspicious palpable abnormality does not preclude the possibility of malignancy or alter the indications for biopsy. BI-RADS: Category 1: Negative RECOMMENDATION(S): 1: Routine screening mammogram BILATERAL in 1 year. 31023, 03224 3341F, 7025F Dictating Physician: BERNICE BYOD MD Electronically Signed by: BERNICE BOYD MD Dic Date/Time: 04/11/19 1327 Sign date/Time: 04/11/19 1328 Concepción Yeh CNM IMG BI PROCEDURES * Pap smear (03/30/2019) 03/30/2019 Narrative HISTORICAL TESTING LAB RESULTING AGENCY - 04/04/2019 4:21 PM EDT [id number] THINPREP PAP, IMAGED: NEGATIVE FOR SQUAMOUS INTRAEPITHELIAL LESION AND MALIGNANCY . MEHNAZ CARL(ASCP) (CASE ELECTRONICALLY SIGNED 04 04 2019) RESULT OF APTIMA HIGH RISK HPV ASSAY: HIGH RISK HPV: ??NEGATIVE (SEROTYPES 16,18,31,33,35,39,45,51,52,56,58,59,66,68) COMPLETED ON 2019-04-03 ADEQUACY: SATISFACTORY ENDOCERVICAL/TRANSFORMATION ZONE COMPONENT PRESENT. SOURCE: THINPREP PAP HPV ANY DX: ??REFLEX 16 AND 18, CERVICAL, IMAGED CLINICAL INFORMATION: HPV ANY DIAGNOSIS. HORMONES, LMP 03/18/19, NEG HC PER PT IN [place], Z12.4 Concepción Yeh CNM LAB CYTOLOGY ORDERAB LES HISTORICAL TESTING LAB RESULTING AGENCY from Last 3 Months or Most Recently Relevant to Health Maintenance
--- OUTSIDE RECORDS SUMMARY | 2024-11-21 13:58 | XMS_ITS | Encounter Summary ---
Author Organization [facility] Address [address] [facility] 7t [place] [address] Care Team Providers Care Academy Education Director Name Role Phone PerlitaMeaghan Primary Care Provider [phone] Reason for Visit * Reason Onset Date Comments Breast US order 11/07/2024 Encounter Details Date Type Department Care Team ([facility] st Contact Info) Description 11/07/2024 Telephone [facility] MEDICINE [address] [place], [place] [phone] Celina Brito RN [address] [place] [address] Breast US order Social History Tobacco Use Types Packs/Day Years Used Date Smoking Tobacco: Never Passive Smoke Exposure: Never Smokeless Tobacco: Never Depression Answer Date Recorded Patient Health Questionnaire-9 Score 2 11/16/2023 Patient Health Questionnaire-9 Score 2 11/16/2023 Last PHQ-9: Questionnaire Data Not on file 0 11/16/2023 Housing Stability Answer Date Recorded What is [...] from getting things needed for daily living? Yes, it has kept me from medical appointments or getting medications. 04/27/2024 Utilities Answer Date Recorded In the past 12 months, has t he electric, gas, oil or water company threatened to shut off services in your home? Yes 04/27/2024 Depression Answer Date Recorded Patient Health Questionnaire-2 Score 1 11/16/2023 Internet Access Answer Date Recorded Internet Access Q1 Yes 06/25/2024 Internet Access Q2 Not on file 06/25/2024 Comments Unknown Sex and Gender Information Value Date Recorded Sex Assigned at Female 08/23/2022 10:33 AM EDT Legal Sex Female 10:33 AM EDT Gender Identity Female 08/23/2022 10:33 AM EDT Sexual Orientation Straight 08/23/2022 10 :33 AM EDT documented as of this encounter Miscellaneous Notes * Telephone Encounter - Celina Brito RN - 11/07/2024 1:53 PM EST RN received breast US order from [facility] for 05/06/25 at 8am. PCP has signed and RN has faxed to [phone], confirmation page recieved. documented in this encounter Plan of Treatment Not on file documented as of this encounter Visit Diagnoses Not on filedocumented in this encounter Additional Health Concerns Assessment Noted Time PHQ-9 Depression Total Score: 2 11/16/19 24 10:21 AM EST documented as of this encounter Care Teams Academy Education Director Relationship Specialty Start Date End Date Meaghan Bhat DO [address] [place] [id number] PCP - General Family Medicine 02/18/20 documented as of this encounter
--- OUTSIDE RECORDS SUMMARY | 2024-11-21 13:58 | XMS_ITS | Encounter Summary ---
Author Organization [facility] Address [address] [facility] 7t [place] [address] Care Team Providers Care Cigar Packer And Picker Name Role Phone PerlitaMeaghan Primary Care Provider [phone] Reason for Visit * Reason Onset Date Comments [facility] breast order 10/29/2024 Encounter Details Date Type Department Care Team ([facility] st Contact Info) Description 10/29/2024 Telephone [facility] MEDICINE [address] [place], [place] [phone] Celina Brito, JONATHAN [address] [place] [address] [facility] [place] Social History Tobacco Use Types Packs/Day [...] Telephone Encounter - Celina Brito RN - 10/29/2024 1:44 PM EST RN received [facility] breast order requesting PCP signature. PCP signed, RN has faxed to [phone]. Confirmation page received. documented in this encounter Plan of Treatment Not on file documented as of this encounter Visit Diagnoses Not on filedocumented in this encounter Additional Health Concerns Assessment Noted Time PHQ-9 Depression Total Score: 2 11/16/19 24 10:21 AM EST documented as of this encounter Care Teams Cigar Packer And Picker Relationship Specialty Start Date End Date Meaghan Bhat DO [address] [place] [address] PCP - General Family Medicine 02/18/20 documented as of this encounter
--- OUTSIDE RECORDS SUMMARY | 2024-11-21 13:58 | XMS_ITS | Encounter Summary ---
Author Organization [facility] Address [address] 7[address] [place] [address] Care Team Providers Care Sales Representatives Name Role Phone PerlitaMeaghan Primary Care Provider + [phone] Encounter Details Date Type Department Care Team ([facility] st Contact Info) Description 05/14/2024 Orders Only [facility] MEDICINE [address] [place], [place] [phone] ProviderDeb MD Social History Tobacco Use Types Packs/Day Years [...] Recorded Patient Health Questionnaire-2 Score 1 11/16/2023 Comments Unknown Sex and Gender Information Value Date Recorded Sex Assigned at Female 08/23/2022 10:33 AM EDT Legal Sex Female 10:33 AM EDT Gender Identity Female 08/23/2022 10:33 AM EDT Sexual Orientation Straight 08/23/2022 10 :33 AM EDT documented as of this encounter Plan of Treatment Not on file documented as of this encounter Procedures Procedure Name Priority Date/Time Associated Diagnosis Comments XR KNEE RT 1V Routine 05/23/2024 10:03 AM EDT documented in this encounter Results * XR KNEE RT 1V (05/23/2024 10:03 AM EDT) Anatomical Region Laterality Modality Abdomen Radiographic Sari ging 05/23/2024 10:0 3 AM EDT Narrative 06/11/2024 5:04 PM EDT ? [facility] ? [address] ?[place] [address] ?XRay Report ? Signed ? Patient: Viry Bryant ?M ?? R#: [id number] ? : 1970 ?Acct:[id number] ? Age/Sex: 53 / F ?ADM Date: 05/23/24 ? Loc: HO.HOSX ? Attending Dr: Melissa Leyva PA-C ? Ordering Physician: Melissa Leyva PA-C ?? Date of Service: 05/23/24 ?? Procedure(s): XR knee RT 1V ?? Accession Number(s): [id number] ? cc: Meaghan Bhat DO; Melissa Leyva PA-C ? EXAMINATION: ?? X-ray right knee ? CLINICAL INFORMATION: ?? Pain ? COMPARISON: ?? X-ray 02/15/2024 ? TECHNIQUE: ?? Right knee patellar sunrise, one view ? FINDINGS: ?? Anatomic alignment. Marginal osteophytes. Limited evaluation the joint ?? space due to positioning. ? XR/XR knee RT 1V ?? IMPRESSION: ?? Marginal osteophytes in the patellofemoral joint. ? Study is assigned for dictation on June 11, 2024 ? Dictated By: ?Jeremy García MD ? Signed By: ?<Electronically signed by Jeremy García MD in OV> ?06/11/24 1701 ? DD/ ? TD/TT: ? Blast Furnace Operator: BEN ? Procedure Note Mell Image - 06/11/2024 [facility] [address] [place] [address] Drive [address] [place] [address] XRay Report Signed Patient: Keegan Bryant R#: [id number] : 1970Acct:[id number] Age/Sex: 53 / FADM Date: 05/23/24 Loc: [facility] Attending Dr: Melissa Leyva PA-C Ordering Physician: Melissa Leyva PA-C Date of Service: 05/23/24 Procedure(s): XR knee RT 1V Accession Number(s): [id number] cc: Meaghan Bhat DO; Melissa Leyva PA-C EXAMINATION: X-ray right knee CLINICAL INFORMATION: Pain COMPARISON: X-ray 02/15/2024 TECHNIQUE: Right knee patellar sunrise, one view FINDINGS: Anatomic alignment. Marginal osteophytes. Limited evaluation the joint space due to positioning. XR/XR knee RT 1V IMPRESSION: Marginal osteophytes in the patellofemoral joint. Study is assigned for dictation on June 11, 2024 Dictated By: Jeremy García MD Signed By: <Electronically signed by Jeremy García MD in OV> 06/11/24 1701 DD/ 1003 TD/TT: Blast Furnace Operator: BEN [facility] External Provider IMG XR PROCEDURES Final Result documented in this encounter Visit Diagnoses Not on filedocumented in this encounter Additional Health Concerns Assessment Noted Time PHQ-9 Depression Total Score: 2 11/16/19 10:21 AM EST documented as of this encounter Care Teams Sales Representatives Relationship Specialty Start Date End Date Meaghan Bhat DO [address] [place] [address] PCP - General Family Medicine 02/18/20 documented as of this encounter
--- OUTSIDE RECORDS SUMMARY | 2024-11-21 13:58 | XMS_ITS | Encounter Summary ---
Author Organization [facility] Address [address] 7t [place] [address] Care Team Providers Care Lending Consultant Name Role Phone PerlitaMeaghan Primary Care Provider + [phone] Encounter Details Date Type Department Care Team ([facility] st Contact Info) Description 11/03/[address] [facility] MEDICINE [address] [place], [place] [phone] ProviderDeb MD Social History Tobacco Use Types Packs/Day Years Used Date Smoking Tobacco: Never Smokeless Tobacco: Never Depression Answer Date Recorded Patient Health Questionnaire-9 Score 3 10/26/2023 Patient Health Questionnaire-9 Score 3 10/26/2023 Last PHQ-9: Questionnaire Data Not on file 0 10/26/2023 Housing Stability Answer Date Recorded What is [...] getting things needed for daily living? No 08/19/2023 Utilities Answer Date Recorded In the past 12 months, has t he electric, gas, oil or water company threatened to shut off services in your home? No 08/19/2023 Depression Answer Date Recorded Patient Health Questionnaire-2 Score 1 10/26/2023 Comments Unknown Sex and Gender Information Value [...] Assessment Noted Time PHQ-9 Depression Total Score: 3 10/26/19 24 11:41 AM EST documented as of this encounter Care Teams Lending Consultant Relationship Specialty Start Date End Date Meaghan Bhat DO [address] [place] [address] PCP - General Family Medicine 02/18/20 documented as of this encounter
--- OUTSIDE RECORDS SUMMARY | 2024-11-21 13:58 | XMS_ITS | Encounter Summary ---
Author Organization [facility] Address [address] [place] [address] 7t [place] [address] Care Team Providers Care Laser Set Up Operator Name Role Phone Meaghan Bhat DO Primary Care Provider Encounter Details Date Type Department Care Team (Latest Contact Info) Description 09/10/2020 Abstract [facility] CONVERSIONS Dental, Provider, DDS Social History Tobacco Use Types Packs/Day Years Used Date Smoking Tobacco: Never Assessed Comments Unknown Sex and Gender Information Value Date Recorded Sex Assigned at Female 08/23/2022 10:33 AM EDT Legal Sex Female 10:33 AM EDT Gender Identity Female 08/23/2022 10:33 AM EDT Sexual Orientation Straight 08/23/2022 10 :33 AM EDT documented as of this encounter Plan of Treatment Not on file documented as of this encounter Visit Diagnoses Not on filedocumented in this encounter Care Teams Laser Set Up Operator Relationship Specialty Start Date End Date Meaghan Bhat DO [address] [place] [id number] PCP - General Family Medicine 02/18/20 documented as of this encounter
--- OUTSIDE RECORDS SUMMARY | 2024-11-21 13:58 | XMS_ITS | Encounter Summary ---
Author Organization [facility] Address [address] [facility] 7t [place] [address] Care Team Providers Care Fish Liver Sorter Name Role Phone PerlitaMeaghan Primary Care Provider + [phone] Encounter Details Date Type Department Care Team ([facility] st Contact Info) Description 11/06/2024 Orders Only [facility] MEDICINE [address] [place], [place] [phone] ProviderDeb MD Social History Tobacco Use Types [...] Procedure Name Priority Date/Time Associated Diagnosis Comments HM MAMMOGRAPHY Routine 11/05/2024 11:26 AM EST documented in this encounter Results * Hm Mammography (11/05/2024 11:26 AM EST) Anatomical Region Laterality Modality Other Historical Provider HEALTH MAINTENANCE Final Result documented in this encounter Visit Diagnoses Not on filedocumented in this encounter Additional Health Concerns Assessment Noted Time PHQ-9 Depression Total Score: 2 11/16/19 24 10:21 AM EST documented as of this encounter Care Teams Fish Liver Sorter Relationship Specialty Start Date End Date Meaghan Bhat DO [address] [place] [address] PCP - General Family Medicine 02/18/20 documented as of this encounter
--- OUTSIDE RECORDS SUMMARY | 2024-11-21 13:58 | XMS_ITS | Encounter Summary ---
Author Organization [facility] Address [address] 7[address] [place] [address] Care Team Providers Care Soil Tester Name Role Phone AdeMeaghan esparza Primary Care Provider Encounter Details Date Type Department Care Team (Latest Contact Info) Description 11/21/2024 Travel Social History Tobacco Use Types Packs/Day Years [...] documented as of this encounter Care Teams Soil Tester Relationship Specialty Start Date End Date Meaghan Bhat DO [address] [place] [address] PCP - General Family Medicine 02/18/20 documented as of this encounter
--- OUTSIDE RECORDS SUMMARY | 2024-11-21 13:58 | XMS_ITS | Encounter Summary ---
Author Organization [facility] [facility] Address [address] [facility] 7t [place] [address] Care Team Providers Care Rodding Anode Worker Name Role Phone Meaghan Bhat DO Primary Care Provider [phone] Reason for Visit * Reason Comments Pre-visit Planning SDOH screening negat david and tobacco screening negative Encounter Details Date Type Department Care Team ([facility] st Contact Info) Description 11/09/2024 Patient Outreach [facility] MEDICINE [address] [place], [place] [phone] Meaghan Bhat DO [address] [place] [address] Pre-visit Planning (SDOH screening negative and tobacco screening negative) Social History Tobacco Use Types Packs/Day Years [...] AM EDT documented as of this encounter Progress Notes * Dolores Campbell - 11/09/2024 9:18 AM EST CC Dolores placed successful outbound call to patient for pre-visit planning. Patient name and confirmed. Patient confirms appt date and time, and has transportation. Biggest concern for appointment at this time is right eye blood cell noted) Patient advised to bring to appointment a photo id and insurance card. Appropriate screenings completed in anticipation of appointment. documented in this encounter Plan of Treatment Not on file documented as of this encounter Visit Diagnoses Not on filedocumented in this encounter Additional Health Concerns Assessment Noted Time PHQ-9 Depression Total Score: 2 11/16/19 24 10:21 AM EST documented as of this encounter Care Teams Rodding Anode Worker Relationship Specialty Start Date End Date Meaghan Bhat DO [address] [place] [address] PCP - General Family Medicine 02/18/20 documented as of this encounter
--- OUTSIDE RECORDS SUMMARY | 2024-11-21 13:58 | XMS_ITS | Clinical Summary ---
Author Organization [employer] Address [address] [facility] [address] [place] [address] Care Team Providers Care Visitor Use Assistant Name Role Phone PerlitaMeaghan Primary Care Provider [phone] Allergies No known active allergies Medications * This document contains information received from the source organization and may not represent a complete record from that organization. diphenhydrAMIN E (BENADryl) 25 MG tablet Take 1 tablet (25 mg) by mouth every 12 (twelve) hours if needed (cough). 60 tablet 03/16/20 24 Active albuterol 108 (90 Base) MCG/ACT inhaler Inhale 1 puff every 6 (six) hours if needed for wheezing or shortness of breath. 18 g 1 03/16/20 24 025 Active Spacer/Aero-Ho lding Chambers (AeroChamber Holding Chamber) device 1 each every 6 (six) hours if needed (wheezing). 1 each 03/16/20 24 Active acetaminophen (Tylenol 8 Hour) 650 MG ER tablet Take 1 tablet (650 mg) by mouth every 8 (eight) hours if needed for mild pain. 60 tablet 3 11/21/19 25 Active Diclofenac Sodium 1 % gel Apply 2 g topically if needed in the morning, at noon, in the evening, and at bedtime (pain). 150 g 3 11/21/19 25 Active lidocaine (Lidoderm) 5 % patch Apply 2 patches topically if needed each day for mild pain. Remove & discard patch within 12 hours or as directed by MD. 60 patch 3 11/21/19 25 Active amitriptyline (Elavil) 10 MG tablet Take 0.5-1 tablets (5-10 mg) by mouth at bedtime. 30 tablet 3 11/21/19 25 025 Active famotidine (Pepcid) 20 MG tablet Take 1 tablet (20 mg) by mouth if needed in the morning and at bedtime for heartburn. 180 tablet 3 11/21/19 25 Active tiZANidine (Zanaflex) 2 MG tablet Take 1 tablet (2 mg) by mouth if needed in the morning, at noon, and at bedtime for muscle spasms. 60 tablet 3 11/21/19 026 Active hydrOXYzine pamoate (Vistaril) 25 MG capsule Take 1 capsule (25 mg) by mouth every 6 (six) hours if needed for itching. 30 capsule 1 08/29/20 025 Discontinued famotidine (Pepcid) 20 MG tablet TAKE 1 TABLET (20 MG) BY MOUTH TWICE DAILY IN THE MORNING AND AT BEDTIME IF NEEDED FOR HEARTBURN. 180 tablet 1 11/28/19 025 Discontinued(Re order (will not trigger notification to Pharmacy)) lidocaine (Lidoderm) 5 % patch Apply 1 patch topically Once per day. Remove & discard patch within 12 hours or as directed by MD. 30 patch 3 02/15/20 025 Discontinued(Re order (will not trigger notification to Pharmacy)) acetaminophen (Tylenol 8 Hour) 650 MG ER tablet Take 1 tablet (650 mg) by mouth every 8 (eight) hours if needed for mild pain. 60 tablet 3 02/15/20 025 Discontinued(Re order (will not trigger notification to Pharmacy)) baclofen (Lioresal) 10 MG tablet Take 1 tablet (10 mg) by mouth if needed in the morning, at noon, and at bedtime for muscle spasms. 60 tablet 3 02/15/20 025 Discontinued Diclofenac Sodium 1 % gel Apply 2 g topically if needed in the morning, at noon, in the evening, and at bedtime (pain). 150 g 3 02/15/20 025 Discontinued(Re order (will not trigger notification to Pharmacy)) Active Problems Problem Noted Date Diagnosed Date Status post carpal tunnel release of both wrists 05/04/2024 De Quervain's disease (radial styloid tenosynovi tis) 05/04/2024 Medial epicondylitis, left elbow 05/04/2024 Mild depression 08/31/2023 Mild intermittent asthma 08/29/2023 Chronic gastroesophageal reflux disease 08/29/20 23 Diverticulosis 08/29/2023 Nephrolithiasis 08/29/2023 BMI 38.0-38.9,adult 08/29/2023 Chronic low back pain 08/29/2023 Assessment & Plan (02/15/2024 2:36 PM EDT): With recent worsening -L-spine XR with mild, multilevel, degenerative spondylosis JAN 2022, referred for repeat -referred for L-spine MRI -referred for EMG/NCS -tx with medrol dose pack -encouraged standing doses tylenol -restart baclofen prn to help with mm spasm -encouraged diclofenac gel prn -trial lidocaine patches prn -trial tramadol prn severe pain, 5-day supply given -consider eval with PM vs PT vs ortho pending results -advised RTC if sx change or worsen Allergic rhinitis 11/24/2017 Panic disorder 11/24/2017 Resolved Problems Problem Noted Date Diagnosed Date Resolved Date Carpal tunnel syndrome of right wrist 05/04/2024 11/21/2024 EUGENIO (generalized anxiety disorder) 08/31/2023 08/31/2023 Current mild episode of parish r depressive disorder without prior episode 08/31/2023 Encounters Date Type Department Care Team Description 11/21/2024 9:30 AM EST Office Visit [facility] [address] [place] [phone] Meaghan Bhat DO Routine history and physical examination of adult (Primary Dx); Panic disorder; Mild intermittent asthma without complication; Nephrolithiasis; Bilateral carpal tunnel syndrome; Chronic bilateral low back pain with sciatica, sciatica laterality unspecified; Chronic pain of right knee; Chronic GERD; Skin lesions; Sleep-disordered breathing; Abnormal mammogram of left breast; BMI 38.0-38.9,adult; Dietary counseling; Exercise counseling 11/21/2024 Travel 11/09/2024 Patient Outreach [facility] [address] [place] [phone] Meaghan Bhat DO Pre-visit Planning (SDOH screening negative and tobacco screening negative) 11/07/2024 Telephone [facility] [address] [place] [address] Celina Brito, RN Breast US order 11/06/2024 Orders Only [facility] [address] [place] [address] ProviderDeb MD 10/29/2024 Telephone [facility] [address] [place] [address] Celina Brito, JONATHAN [facility] breast order 09/06/2024 9:45 AM EST Office Visit [facility] OPTOMETRY [address] [place] [address] BharathValarie medrano, OD Presbyopia (Primary Dx) 08/24/2024 Telephone [facility] [address] [place] [address] Meaghan Bhat DO Appointment Request 08/24/2024 Telephone [facility] [address] [place] [phone] Meaghan Bhat DO Appointment Request from Last 3 Months Immunizations Name Administration Dates Next Due Influenza injectable quadriv alent IIV4 with preservative 11/24/2017 Influenza injectable quadriv alent preservative free 08/29/2023 Moderna Covid-19 Vaccine 12+ 11/11/2021,03/24/20 21,02/25/2021 Pneumococcal Conjugate PCV 20 08/29/2023 Pneumococcal Polysaccharide PPSV23 11/24/2017 Tdap 09/04/2020 Zoster, Recombinant 11/04/2020,09/04/2020 Family History Medical History Relation Name Comments Arthritis Brother Hypertension Father Gastric cancer Father's Brother Heart disease Maternal Grandmother Hypertension Mother Prediabetes Mother Breast cancer Mother's Sister Heart disease Mother's Sister Prostate cancer Paternal Grandfather COPD Paternal Grandmother Heart disease Paternal Grandmother Relation Name Status Comments Brother Father Alive Father's Brother Maternal Grandmother Mother Alive Mother's Sister Paternal Grandfather Paternal Grandmother Social History Tobacco Use Types Packs/Day Years Used Date Smoking Tobacco: Never Passive Smoke Exposure: Never Smokeless Tobacco: Never Tobacco Cessation:Counseling Given: Not Answered Depression Answer Date Recorded Patient Health Questionnaire-9 [...] Orientation Straight 08/23/2022 10 :33 AM EDT Last Filed Vital Signs Vital Sign Reading Time Taken Comments Blood Pressure 123/72 11/21/2024 9:39 AM EST Pulse 73 11/21/2024 9:39 AM EST Temperature 36.1 ??C (96.9 ??F) 11/21/2024 9:39 AM ES T Respiratory Rate 20 11/21/2024 9:39 AM EST Oxygen Saturation 97% 05/04/2024 9:02 AM EDT Inhaled Oxygen Concentration - - Weight 92.6 kg (204 lb 4 oz) 11/21/2024 9:39 AM EST Height 154.9 cm (5' 1 ) 11/21/2024 9:39 AM EST Body Mass Index 38.59 11/21/2024 9:39 AM EST Plan of Treatment Health Maintenance Due Date Last Done Comments CT Colonography 1970 Colonoscopy 1970 Colorectal Cancer Screening 1970 FIT DNA/Cologuard 1970 FIT 1970 FOBT 1970 Sigmoidoscopy 1969 Alcohol/Substance Use Screening 1981 Hepatitis C Screening 1987 Hepatitis B Vaccines (1 of 3 - 19+ 3-dose series) 1988 COVID-19 Vaccine (2023- season) 2024 11/11/2021, 03/24/2021, 02/25/2021 Influenza Vaccine (#1) 2024 08/29/2023, 2017 Diagnostic Breast Imaging 05/05/20252024, 05/03/2024, 11/03/2023, Additional history exists Mammogram 05/05/2025 11/05/2024, 04/23, 11/03/2023, Additional history exists SDOH Screening 11/09/2025 11/09/2024 Depression Screening 11/21/2025 11/21/2024, 11/21/19 25 Tobacco Screening 11/21/2025 11/21/2024 Cervical Cancer Screening 10/07/2026 Pap Smear 10/07/2026 10/07/2023, 03/30/2019 HPV/Cotest 10/07/2028 10/07/2023, 03/30/2019 DTaP/Tdap/Td Vaccines (2 - Td or Tdap) 09/04/2030 09/04/2020 RSV Patients and Patients Aged 60 years or older (1 - 1-dose 75+ series) 2044 Zoster Vaccines Completed 11/04/2020, 09/04/2020 HIV Screening Completed 08/29/2023, 08/29/2023 Pneumococcal Vaccine: 50+ Years Completed 08/29/2023, 11/24/2017 HIB Vaccines Aged Out No longer eligi [...] patient's age to complete this topic Meningococcal Vaccine Aged Out No elba sedrick eligible based on patient's age to complete this topic RSV under 20 months Aged Out No longe r eligible based on patient's age to complete this topic Rotavirus Vaccines Aged Out No longer eligible based on patient's age to complete this topic Procedures Procedure Name Priority Date/Time Associated Diagnosis Comments CBC Routine 11/21/2024 11:33 AM EST Panic disorder Mild intermittent asthma without complication Nephrolithiasis Bilateral carpal tunnel syndrome Chronic bilateral low back pain with sciatica, sciatica laterality unspecified Instability of right knee joint Heartburn Skin lesions Healthcare maintenance Peripheral polyneuropathy HM MAMMOGRAPHY Routine 11/05/2024 11:26 AM EST HPV MRNA E6/E7 REFLEX TO HPV 16, 18/45 Routine 10/07/2023 1:09 PM EST PAP SMEAR Routine 10/07/2023 1:09 PM EST HIV 1/2 ANTIGEN/ANTIBODY, FOURTH GENERATION W/RFL Routine 08/29/2023 11:10 AM EST Routine history and physical examination of adult from Last 3 Months or Most Recently Relevant to Health Maintenance Results * CBC (11/21/2024 11:33 AM EST) White Blood Count 10.2 4.8 - 10.8 X10*3/uL [facility] Red Blood Count 5.04 4.20 - 5.50 X10*6/uL [facility] Hemoglobin 13.9 12.0 - 16.0 g/dl [facility] Hematocrit 43.4 37.0 - 47.0 % [facility] Mean Corpuscular Volume 86.1 80.0 - 98.0 fL [facility] Mean Corpuscular Hemoglobin 27.6 27.0 - 33.0 pg [facility] Mean Corpuscular HGB Conc 32.0 31.0 - 35.0 g/dl [facility] Red Cell Distribution Width 13.8 11.0 - 16.0 % [facility] Platelet Count 373 160 - 400 X10*3/uL [facility] Mean Platelet Volume 9.5 9.4 - 12.3 fL [facility] NRBC Pct Auto 0.0 0.0 - 0.2 /100WBC [facility] NRBC Abs Auto 0.000 0.0 - 0.012 X10*3/uL [facility] Blood Venous blood specimen / Unknown 11/21/2024 11:33 AM EST 11/21/2024 1:38 PM EST Meaghan Bhat DO LAB BLOOD ORDERABLES Final R esult [facility] [address] [place] [phone] * Hm Mammography (11/05/2024 11:26 AM EST) Anatomical Region Laterality Modality Other Historical Provider HEALTH MAINTENANCE Final Result * HPV mRNA E6/E7 w/Reflex to HPV Genotypes 16, 18/45 (10/07/2023 1:09 PM EST) HPV nRNA E6/E7 Not Detected Not Detected [facility] Comment:Methodology: Transcr iption-Mediated AmplificationThis assay detects E6/E7 viral messenger RNA (mRNA) from 14high-risk HPV types (16,18,31,33,35,39,45,51,52,56,58,59,66,68).Cervical sources are required for HPV testing.If a vaginal source from a patient who has had atotal hysterectomy with removal of cervix wassubmitted, please contact the testing laboratoryfor alternative testing options.For additional information, please refer tohttp://education.[employer]faq/[email or web address](This link if provided for information/educational purposes only.)THIS TEST WAS PERFORMED AT:[employer] [place] [id number] DELEON MD HPV mRNA E6/E7 TNP [facility] HPV 16 RNA [facility] HPV 18/45 RNA TNP [facility] 10/07/2023 1:09 PM EST 10/10/2023 11:30 AM EST us Meaghan Bhat DO LAB CYTOLOGY ORDERABLES Shanita l Result [facility] [address] [place] [phone] * Pap Smear (10/07/2023 1:09 PM EST) 10/07/2023 1:09 PM EST 10/10/2023 11:30 AM EST Narrative [facility] - 10/19/2023 1:00 PM EST ----- ------- Name: Viry Bryant ? Age/Sex: 52/F ? : 1970 Unit#: [id number] ?? Attend Dr: Meaghan Bhat DO ?Re10/07/23 ?Status: DEP REF ? Location: HO.HHCLNP ? Disch: ? ----- ------- SPEC : [id number] ?RECD: 10/10/23 ? STATUS: ??SOUT ? REQ NUM: [id number] ? GERONIMO: 10/07/23-1308 ? SUBM DR: Meaghan Bhat DO ? ENTERED: ??10/10/23 ?SP TYPE: Pap Smr ?OTHR : ? ORDERED: ??Pap Smear ? Interpretation ?? Satisfactory for evaluation. ?? Negative for intraepithelial lesion or malignancy. ?HPV mRNA E6/E7: ?NOT DETECTED ? This assay detects E6/E7 viral messenger RNA (mRNA) from 14 high-risk HPV types (16, 18, ?? 31, 33, 35, 39, 45, 51, 52, 56, 58, 59, 66, 68) ?? HPV testing performed by [employer], [place], [place]. ??See reference laboratory ?? portion of the EMR for entire report. ?Clinical Information LMP: Postmenopausal Previous PAP test: Unknown date, WNL ? Material Received ?? ThinPrep-Cervical ----- ------- Signed (signature on file) MEHNAZ Yadav ([facility]) 10/19/23 1300 ? ----- ------- ? END OF REPORT ? us Meaghan Bhat DO LAB CYTOLOGY ORDERABLES Shanita latif Result [facility] [address] [place] [phone] * HIV-1/2 Antigen and Antibodies, Fourth Generation, with Reflexes (08/29/2023 11:10 AM EST) [facility] HIV AB/AG Nonreactive Nonreactive [facility] Comment:HIV-1 p24 Ag and/or HIV-1/HIV-2 Ab not detected.A test result that is nonreactive does not exclude thepossibility of exposure to or infection with HIV-1 and/orHIV-2. Nonreactive results in this assay for individualswith prior exposure to HIV-1 and/or HIV-2 may be due toantigen and antibody levels that are below the limit ofdetection of this assay.The [employer] HIV Ag/Ab Combo assay result andsupplemental assay results should be interpreted inconjunction with the patient's clinical presentation,history and other laboratory results. If the results areinconsistent with clinical evidence, additional testing issuggested to confirm the result. Blood Venous blood specimen / Unknown 08/29/2023 11:10 AM EST 08/29/2023 1:13 PM EST Meaghan Bhat DO LAB BLOOD ORDERABLES Final R esult [facility] [address] [place] [phone] [phone] from Last 3 Months or Most Recently Relevant to Health Maintenance Insurance Care Teams Visitor Use Assistant Relationship Specialty Start Date End Date Meaghan Bhat DO [address] [place] [phone] PCP - General Family Medicine 02/18/20
[2024-11-21 14:04] LABS: Estimated Average Glucose 128 mg/dL; Hemoglobin A1C 153.8223 umol/L; Hemoglobin A1c % 6.1 % (<6.0); Total Hemoglobin (HGBA1C) 3601.0192 umol/L
[2024-11-21 14:17] LABS: Alanine Aminotransferase 27 U/L (0-31); Albumin Level 4.6 g/dL (3.5-5.0); Alkaline Phosphatase 95 U/L (39-117); Anion Gap 11 (12-20); Aspartate Amino Transferase 22 U/L (5-31); Bilirubin Direct < 0.2 mg/dL (0.0-0.5); Bilirubin Total 0.2 mg/dL (0.0-1.0); Blood Urea Nitrogen 13 mg/dL (9-16); Calcium 10.1 mg/dL (8.4-10.2); Carbon Dioxide 26 mmol/L (22-29); Chloride 105 mmol/L (96-108); Cholesterol 222 mg/dL (<200); Estimated Glomerular Filt Rate > 60; Glucose Random 84 mg/dL (60-115); HDL Cholesterol 57 mg/dL (>40); LDL Cholesterol Calculated 146 mg/dL (<100); Potassium 3.9 mmol/L (3.3-5.1); Sodium 138 mmol/L (135-145); Total Protein 8.5 g/dL (6.5-8.0); Triglycerides 96 mg/dL (<150)
[2024-11-21 14:24] LABS: Free T4 (Free Thyroxine) 1.04 ng/dL (0.71-1.85); Thyroid Stimulating Hormone 1.85 uIU/mL (0.32-4.0); Vitamin D 25-OH Total 30.3 ng/mL (>30)
[2024-11-21 17:08] LABS: CT PCR NOT DETECTED (Not Detect.); NG PCR NOT DETECTED (Not Detect.)
[2024-11-22 05:31] LABS: Hepatitis A Antibody IgG Nonreactive (Nonreactive); ~Hepatitis A Antibody IgG 0.29 S/CO (0.00-0.99)
[2024-11-22 05:32] LABS: HBS Num1 0.23 mIU/mL (0-7.99); HBc Num1 0.15 S/CO (0.00-0.79); HIV AB/AG Nonreactive (Nonreactive); HIV Num 1 0.06 S/CO (0.00-0.99); Hepatitis B Core Antibody Nonreactive (Nonreactive); Hepatitis B Surface Antigen Negative (Negative); ~HepC Num1 0.08 S/CO (0.00-0.79); ~Hepatitis B Surface Antibody NONREACTIVE (Nonreactive); ~Hepatitis C Antibody Nonreactive (Nonreactive)
[2024-11-23 10:33] LABS: RPR Rapid Plasma Reagin NON-REACTIVE (NON-REACTIVE)
[2024-11-24 15:44] LABS: TS Negative Control Passed; TS Panel A 0; TS Panel B 0; TS Positive Control Passed; TSpotTB Negative (Negative)
== END 2024-11-21 11:31 | disposition home or self-care (01) ==
LOC: HO.HHCL 11:30
PROVIDERS: Visit Provider Family Medicine
DX: Z00.00 Encounter for general adult medical examination without abnormal findings (principal); Z11.3 Encounter for screening for infections with a predominantly sexual mode of transmission; Z11.4 Encounter for screening for human immunodeficiency virus [HIV]; Z11.1 Encounter for screening for respiratory tuberculosis; F41.0 Panic disorder [episodic paroxysmal anxiety]; J45.20 Mild intermittent asthma, uncomplicated; N20.0 Calculus of kidney; G56.03 Carpal tunnel syndrome, bilateral upper limbs; M54.40 Lumbago with sciatica, unspecified side; G89.29 Other chronic pain; M25.361 Other instability, right knee; R12 Heartburn; L98.9 Disorder of the skin and subcutaneous tissue, unspecified; G62.9 Polyneuropathy, unspecified
CPT/HCPCS: 80048; 80061; 80076; 82306; 83036; 84439; 84443; 85027; 86481; 86592; 86704; 86706; 86708; 86803; 87340; 87389; 87491; 87591

== ENCOUNTER 2024-11-27 18:05 | Emergency (ER) | payer MEDICAID, SELFPAY ==
--- NOTE | ~2024-11-27 | CT_ITS ---
CLINICAL HISTORY: RLQ pain CT abdomen and pelvis with contrast Comparison: CT of the abdomen and pelvis from 03/31/2020 Findings: No consolidation of the imaged lung bases. The gallbladder is surgically absent. Redemonstration of the steatotic changes of the liver. Spleen remains at the upper limits of normal. The adrenal glands are normal. Mild volume loss of the pancreas is noted. No significant change in right-sided calcifications including 0.7 cm nephrolithiasis. No hydronephrosis at this time. Small mesenteric lymph nodes are likely reactive. No small bowel obstruction. The appendix is within normal limits. Moderate to severe stool burden is present, including the cecum. Acute inflammatory stranding adjacent to the sigmoid colon with acute diverticulitis and multiple diverticula. No free intraperitoneal air. No well-formed or drainable abscess by CT. Mild-moderate wall thickening of the urinary bladder is nonspecific and may reflect cystitis. The uterus is anteverted. No adnexal soft tissue mass by CT. Degenerative changes include lower lumbar facet arthropathy. Mild pelvis deformities appear old chronic including osteophytes from iliac wings. Previous procedure changes with ventral mesh opacities. IMPRESSION: 1. Acute diverticulitis involving the sigmoid colon. No perforation or abscess formation. 2. Nonobstructing right-sided nephrolithiasis. This document has been electronically signed by: Yordy Crum MD on 11/28/2024 00:47:16
[2024-11-27 18:25] VITALS: BP 127/64; PULSE 74; RESP 16; TEMP 36.7; O2SAT 96; BMI 38.4
--- NOTE | 2024-11-27 18:30 | ED.ABDPAIN ---
HPI - Abdominal Pain General Chief Complaint: Abdominal Pain Stated Complaint: sent from clinic for CT scan Time Seen by Provider: 11/27/24 23:23 Source: patient, RN notes reviewed and old records reviewed Mode of arrival: ambulatory Limitations: no limitations History of Present Illness ED Provider: Alexandrea RODRIGUEZ narrative: 54-year-old female presents for evaluation of right lower abdominal pain. Patient states that yesterday she had fairly severe lower abdominal pain on the right side. She had some diarrhea and noticed some blood in her stool yesterday. She states that today she had no blood in her stool She states that her pain is also improved somewhat. She went to an urgent care prior to arrival and was told to come to the hospital for ?a CT scan. ? She reports a history of diverticulitis. She was reports a history of a hernia repair Related Data Home Medications ?Medication ?Instructions ?Recorded ?Confirmed acetaminophen 650 mg tablet 650 mg PO Q6H PRN 10/19/23 05/23/24 baclofen 10 mg tablet 10 mg PO BEDTIME 10/19/23 05/23/24 diclofenac sodium 1 % topical gel 2 g topical QID 10/19/23 05/23/24 (Arthritis Pain (diclofenac)) famotidine 20 mg tablet 20 mg PO BEDTIME 10/19/23 05/23/24 gabapentin 100 mg capsule 100 mg PO BEDTIME 10/19/23 05/23/24 hydroxyzine HCl 25 mg tablet 25 mg PO BEDTIME 10/19/23 05/23/24 Previous Rx's ?Medication ?Instructions ?Recorded pyridoxine (vitamin B6) 100 mg 100 mg PO DAILY 90 days #90 tabs 11/21/20 tablet oxycodone-acetaminophen 5 mg-325 1 tab PO Q6H PRN pain, severe #5 08/23/24 mg tablet tabs amoxicillin 875 mg-potassium 1 tab PO Q12H #14 tabs 11/28/24 clavulanate 125 mg tablet Allergies Allergy/AdvReac Type Severity Reaction Status Date / Time No Known Allergies Allergy Verified 11/27/24 18:28 [No Known Allergies*] Review of Systems Constitutional: Denies body ache(s), Denies chills and Denies fever(s) Cardiovascular: Denies dyspnea Respiratory: Denies cough and Denies dyspnea Gastrointestinal: Reports abdominal pain, Reports hematochezia, Denies diarrhea, Denies loose stools, Denies nausea and Denies vomiting Musculoskeletal: Denies back pain Skin/Breast: Denies rash PMFSH Past Medical History Medical History (Updated 11/28/24 @ 01:57 by Keith Lechuga) Carpal tunnel syndrome of left wrist Mild depression Chronic low back pain Diverticulosis Chronic gastroesophageal reflux disease Intermittent asthma History of panic disorder Hx of allergic rhinitis Surgical History Hx of cholecystectomy Hx of lithotripsy History of inguinal hernia Hx of section Family History Family History Father No problems noted. Mother No problems noted. Social History Social History Alcohol intake: current Alcohol intake frequency: does not drink Patient Tobacco Use Status: Never used Tobacco Advance Directives: No Advance Directives Information Provided: No Physical Exam ED Vital Signs: Vital Signs - 24 hr 11/27/24 18:25 11/27/24 22:37 Temperature 98.0 F 96.8 F Pulse Rate 74 71 Respiratory Rate 16 16 Blood Pressure 127/64 122/58 L Pulse Oximetry 96 94 Oxygen Delivery Method Room Air Room Air BMI result Body Mass Index 38.4 Const General: healthy appearing, comfortable, no acute distress, alert and awake Nutritional Appearance: well nourished Orientation/consciousness: patient oriented x3 HENMT Head: Yes normocephalic and Yes atraumatic Neck Neck: Yes full ROM Resp Effort & Inspection: normal respiratory effort, able to speak in complete sentences and not labored Cardio Rate: regular rate Rhythm: regular rhythm GI Inspection: No distended Palpation (GI): Soft to palpation, not firm, Tenderness to palpation present (GI) in the RLQ, Guarding due to palpation present (GI) in the RLQ and not rigid Skin General skin exam: elasticity normal Neuro General: patient oriented x3 Cranial nerves: Yes Bilaterally intact EOM present Cognition (Neuro): normal cognition Extrem Other: Moving all extremities well without any obvious deformities Course Course Course Narrative: This is a Rapid Medical Examination (RME) performed by Osmel Polk PA-C in triage. Full HPI, ROS, assessment and treatment plan per primary provider in the Main ED. 54 yo female hx of asthma, GERD, diverticulosis, diverticulitis, depression here from [facility] for evaluation of the right lower quadrant abdominal pain, chills, hematochezia. sent by doctor for r/u appe. + well appearing. Plan: labs, will defer imaging to primary provider Medical Decision Making Medical Decision Making [facility] Narrative: 54-year-old female presents for evaluation of right lower abdominal pain. She is quite tender on exam with guarding in the right lower quadrant. She has a mild leukocytosis to 11.9k. Acute appendicitis is possible and diverticulitis more likely given the diarrhea and reported bloody stool. She states that she has not had any bloody stool today. Her hemoglobin hematocrit are within normal limits. I did discuss possible guaiac testing with the patient. We will defer this time, awaiting CT scan of the abdomen pelvis Differential Diagnosis Differential Diagnoses: The differential diagnosis associated with the presentation includes Acute appendicitis Acute diverticulitis Colitis Internal hemorrhoids External hemorrhoids Lab Data [facility] Lab Attestation statement: I reviewed the patient's lab results. Mild leukocytosis as mentioned above, no significant anemia. Normal platelet count. No significant electrolyte abnormalities 11/27/24 18:44 11/27/24 18:44 Labs: Lab Results 11/27/24 Range/Units 18:44 WBC 11.9 H (4.8-10.8) X10*3/uL RBC 4.68 (4.20-5.50) X10*6/uL Hgb 13.0 (12.0-16.0) g/dl Hct 39.6 (37.0-47.0) % MCV 84.6 (80.0-98.0) fL MCH 27.8 (27.0-33.0) pg MCHC 32.8 (31.0-35.0) g/dl RDW 13.8 (11.0-16.0) % Plt Count 358 (160-400) X10*3/uL MPV 8.6 L (9.4-12.3) fL Immature Gran % (Auto) 0.3 (0.0-0.4) % Neut % (Auto) 61.0 (45-73) % Lymph % (Auto) 28.4 (20-40) % [place] % (Auto) 7.7 (2-11) % Eos % (Auto) 2.0 (0-4) % Baso % (Auto) 0.6 (0-2) % Lymph # (Auto) 3.4 (1.2-4.9) X10*3/uL [place] # (Auto) 0.9 (0.1-1.2) X10*3/uL Eos # (Auto) 0.2 (0.0-0.4) X10*3/uL Baso # (Auto) 0.1 (0.0-0.2) X10*3/uL Abs Immat Gran (auto) 0.04 H (0.00-0.03) X10*3/uL Absolute Neuts (auto) 7.3 (2.0-8.3) x10*3/uL Absolute Nucleated RBC 0.000 (0.0-0.012) X10*3/uL Nucleated RBC % (auto) 0.0 (0.0-0.2) /100WBC Sodium 143 (135-145) mmol/L Potassium 4.2 (3.3-5.1) mmol/L Chloride 105 (96-108) mmol/L Carbon Dioxide 27 (22-29) mmol/L Anion Gap 15 (12-20) BUN 11 (9-16) mg/dL Creatinine 0.73 (0.5-1.4) mg/dL Estim Creat Clear Calc 90.0 Estimated GFR > 60 Random Glucose 88 (60-115) mg/dL Calcium 9.3 D (8.4-10.2) mg/dL Magnesium 2.1 (1.6-2.6) mg/dL Total Bilirubin 0.4 (0.0-1.0) mg/dL AST 17 (5-31) U/L ALT 22 (0-31) U/L Alkaline Phosphatase 94 (39-117) U/L Total Protein 7.9 (6.5-8.0) g/dL Albumin 4.2 (3.5-5.0) g/dL Lipase 31 (8-78) U/L Medications Administered Discontinued Medications Generic Name Dose Route Start Last Admin Trade Name Freq PRN Reason Stop Dose Admin Iohexol 85 ml 11/28/24 00:17 11/28/24 00:17 Iohexol 350 Mg/Ml 100 Ml Infus..Btl IV 11/28/24 00:18 85 ml ONCE ONE Administration Discharge Plan Discharge Clinical Impression: Diverticulitis Patient Disposition: Home, Self-Care Instructions: Diverticulitis (ED) Additional Instructions: Your CT scan shows uncomplicated diverticulitis. You should use a clear liquid diet for the next 2-3 days. If your symptoms are improving you may hold off on the antibiotics. If your symptoms are worsening started the antibiotics but completely entire course of antibiotics if you start them Follow-up with your primary doctor, return for new or worsening symptoms Prescriptions: New amoxicillin-pot clavulanate 875-125 mg tablet 1 tab PO Q12H Qty: 14 0RF No Action oxycodone-acetaminophen 5-325 mg tablet 1 tab PO Q6H PRN (Reason: pain, severe) Qty: 5 0RF Rx Instructions: Partial Fill upon patient request. pyridoxine (vitamin B6) 100 mg tablet 100 mg PO DAILY 90 Days Qty: 90 3RF acetaminophen 650 mg tablet 650 mg PO Q6H PRN famotidine 20 mg tablet 20 mg PO BEDTIME baclofen 10 mg tablet 10 mg PO BEDTIME gabapentin 100 mg capsule 100 mg PO BEDTIME diclofenac sodium [Arthritis Pain (diclofenac)] 1 % gel 2 g topical QID Rx Instructions: apply to single elbow, wrist or hand; for hand includes palm/fingers/back of hand hydroxyzine HCl 25 mg tablet 25 mg PO BEDTIME Print Language: [place]
[2024-11-27 18:47] LABS: MANUAL DIFF FLAG NO
[2024-11-27 18:52] LABS: Basophils Absolute Auto 0.1 X10*3/uL (0.0-0.2); Basophils Percent Auto 0.6 % (0-2); Eosinophils Absolute Auto 0.2 X10*3/uL (0.0-0.4); Hematocrit 39.6 % (37.0-47.0); Imm Gran Abs Auto 0.04 X10*3/uL (0.00-0.03); Imm Gran Pct Auto 0.3 % (0.0-0.4); Lymphocytes Absolute Auto 3.4 X10*3/uL (1.2-4.9); Lymphocytes Percent Auto 28.4 % (20-40); Mean Corpuscular HGB Conc 32.8 g/dl (31.0-35.0); Mean Corpuscular Hemoglobin 27.8 pg (27.0-33.0); Mean Corpuscular Volume 84.6 fL (80.0-98.0); Mean Platelet Volume 8.6 fL (9.4-12.3); Monocytes Absolute Auto 0.9 X10*3/uL (0.1-1.2); Monocytes Percent Auto 7.7 % (2-11); Neutrophils Absolute Auto 7.3 x10*3/uL (2.0-8.3); Platelet Count 358 X10*3/uL (160-400); Red Blood Count 4.68 X10*6/uL (4.20-5.50); Red Cell Distribution Width 13.8 % (11.0-16.0); White Blood Count 11.9 X10*3/uL (4.8-10.8)
[2024-11-27 19:06] LABS: Alanine Aminotransferase 22 U/L (0-31); Albumin Level 4.2 g/dL (3.5-5.0); Alkaline Phosphatase 94 U/L (39-117); Anion Gap 15 (12-20); Aspartate Amino Transferase 17 U/L (5-31); Bilirubin Total 0.4 mg/dL (0.0-1.0); Blood Urea Nitrogen 11 mg/dL (9-16); Calcium 9.3 mg/dL (8.4-10.2); Carbon Dioxide 27 mmol/L (22-29); Chloride 105 mmol/L (96-108); Estimated Glomerular Filt Rate > 60; Glucose Random 88 mg/dL (60-115); Lipase 31 U/L (8-78); Magnesium 2.1 mg/dL (1.6-2.6); Potassium 4.2 mmol/L (3.3-5.1); Sodium 143 mmol/L (135-145); Total Protein 7.9 g/dL (6.5-8.0)
--- OUTSIDE RECORDS SUMMARY | 2024-11-27 21:25 | XMS_ITS | Clinical Summary ---
Author Organization [email or web address] Address [facility] [address] [place] [address] Care Team Providers Care Document Control Coordinator Name Role Phone Perlita Meaghan Primary Care Provider + [phone] Allergies No known active allergies Medications * [...] Active Problems Problem Noted Date Diagnosed Date RLQ abdominal pain 11/27/2024 Assessment & Plan (11/27/2024 5:45 PM EST): Differential includes diverticulitis, appendicitis, gastritis vs other. No evidence of dehydration. Vitals stable. Exam concerning for appendicitis. PT agrees to go to ER for further evaluation. Colon cancer screening 11/27/2024 Assessment & Plan (11/27/2024 5:45 PM EST): PT due this year or colonoscopy. Referral placed 11/27/24 Severe anxiety with panic 11/21/2024 Assessment & Plan (11/21/2024 3:54 PM EST): During [facility] Consult Viry presenting with excessive worry/anxiety, difficulty controlling worry, anxiety/worry associated to restlessness and/or feeling keyed-up/On edge , easily fatigued , difficulty concentrating and/or mind going blank , muscle tension , and sleep disturbance difficulty falling asleep, Fear , and sense of dread and Recurrent panic attacks (abrupt surge of intese lul or discomfort that reaches peak within minutes and during which time the following occur (4 or more) palpitations, trembling/shaking, sensation of shortness of breath/smothering, feeling of choking, Chest pain/discomfort, dizzy/unsteady/light-headed/faint, Chills/heat sensation, numbness/tingling, fear of losing control, fear of dying; for a period of 0-6 mo, for most or all symptoms in the context of illness or family illness. Viry reported experiencing anxiety and panic sxs associated with her medical condition. Pt reports her anxiety increases when being under stress. Not able to utilize coping mechanisms when anxiety is severe. She has positive support from her family. Pt utilizes the ER when having panic attacks. Education provided around contacting [facility] centers to receive immediate support. clinician engaged patient with active/reflective listening. Reviewed and assessed for risk, current stressors and protective factors. Pt explored mechanisms to use when feeling increase of sxs. Practiced breathing exercises and grounding techniques during session. Pt declined OP referral for therapy services. clinician will provide support during next medical appointment if needed. Status post carpal tunnel release of both [...] r depressive disorder without prior episode 08/31/2023 5 Encounters * This document contains information received from the source organization and may not represent a complete record from that organization. Date Type Department Care Team Description 11/27/2024 5:20 PM EST Office Visit [facility] [address] [place] [phone] Renetta Frey MD RLQ abdominal pain (Primary Dx); Colon cancer screening 11/27/2024 Orders Only GENERIC EXTERNAL DATA DEPARTMENT Provider, Generic External Data 11/27/2024 Travel 11/27/2024 Telephone [facility] [address] [place] [phone] Meaghan Bhat DO Nurse Triage 11/26/2024 Telephone [facility] [address] [place] [address] Meaghan Bhat DO Care Coordination (ICP Care Plan ) 11/26/2024 Patient Outreach [facility] [address] [place] [address] Meaghan Bhat DO 11/21/2024 9:30 AM EST Office Visit [facility] [address] [place] [address] Meaghan Bhat DO Routine history and physical examination of adult (Primary Dx); Panic disorder; Mild intermittent asthma without complication; Nephrolithiasis; Bilateral carpal tunnel syndrome; Chronic bilateral low back pain with sciatica, sciatica laterality unspecified; Chronic pain of right knee; Chronic GERD; Skin lesions; Sleep-disordered breathing; Abnormal mammogram of left breast; BMI 38.0-38.9,adult; Dietary counseling; Exercise counseling 11/21/2024 Travel 11/09/2024 Patient Outreach [address] [address] Meaghan Bhat DO Pre-visit Planning (SDOH screening negative and tobacco screening negative) 11/07/2024 Telephone [facility] [address] [place] [phone] Celina Brito, JONATHAN Breast US order 11/06/2024 Orders Only [address] [phone] Deb Rasmussen MD 10/29/[address] [phone] Celina Brito, JONATHAN [facility] breast order 09/06/2024 9:45 AM EST Office Visit [facility] OPTOMETRY [address] [place] [address] Bharath, Valarie, OD Presbyopia (Primary Dx) from Last 3 Months Immunizations Name Administration [...] Sign Reading Time Taken Comments Blood Pressure 127/78 11/27/2024 5:00 PM EST Pulse 78 11/27/2024 5:00 PM EST Temperature 36.8 ??C (98.3 ??F) 11/27/2024 5:00 PM ES T Respiratory Rate 16 11/27/2024 5:00 PM EST Oxygen Saturation 98% 11/27/2024 5:00 PM EST Inhaled Oxygen Concentration - - Weight 92.1 kg (203 lb 2 oz) 11/27/2024 5:00 PM EST Height 154.9 cm (5' 1 ) 11/27/2024 5:00 PM EST Body Mass Index 38.38 11/27/2024 5:00 PM EST Plan of Treatment Health Maintenance Due Date Last Done Comments CT Colonography 1969 Colonoscopy 1969 Colorectal Cancer Screening 1969 FIT DNA/Cologuard 1969 FIT 1969 FOBT 1969 Sigmoidoscopy 1969 Alcohol/Substance Use Screening 1981 Hepatitis B Vaccines (1 of 3 - 19+ 3-dose series) 1988 COVID-19 Vaccine ( season) 2024 11/11/2021, 03/24/2021, 02/25/2021 Influenza Vaccine (#1) 2024 08/29/2023, 2017 Diagnostic Breast Imaging 05/05/20252024, 05/03/2024, 11/03/2023, Additional history exists Mammogram 05/05/2025 11/05/2024, 04/23, 11/03/2023, Additional history exists SDOH Screening 11/09/2025 11/09/2024 Depression Screening 11/21/2025 11/21/2024, 11/21/19 25 Diabetes: Hemoglobin A1C 11/21/2025 11/21/2024, 11/0 03/2023 Tobacco Screening 11/27/2025 11/27/2024 Cervical Cancer Screening 10/07/2026 Pap Smear 10/07/2026 10/07/2023, 03/30/2019 HPV/Cotest 10/07/2028 10/07/2023, 03/30/2019 DTaP/Tdap/Td Vaccines (2 - Td or Tdap) 09/04/2030 09/04/2020 RSV Patients and Patients Aged 60 years or older (1 - 1-dose 75+ series) 2044 Zoster Vaccines Completed 11/04/2020, 09/04/2020 Pneumococcal Vaccine: 50+ Years Completed 08/29/2023, 11/24/2017 HIV Screening Completed 11/21/2024, 03/2023, 08/29/2023 Hepatitis C Screening Completed 11/21/2024 HIB Vaccines Aged Out No longer eligi [...] Procedure Name Priority Date/Time Associated Diagnosis Comments LIPASE Routine 11/27/2024 6:44 PM EST MAGNESIUM Routine 11/27/2024 6:44 PM EST COMPREHENSIVE METABOLIC PANEL Routine 11/27/2024 6:44 PM EST CBC WITH AUTO DIFFERENTIAL Routine 11/27/2024 6:44 PM EST T-SPOT(R).TB Routine 11/21/2024 11:33 AM EST Routine history and physical examination of adult HEPATITIS B CORE AB TOTAL Routine 11/21/2024 11:33 AM EST Panic disorder Mild intermittent asthma without complication Nephrolithiasis Bilateral carpal tunnel syndrome Chronic bilateral low back pain with sciatica, sciatica laterality unspecified Instability of right knee joint Heartburn Skin lesions Healthcare maintenance Peripheral polyneuropathy HEPATITIS A ANTIBODY, TOTAL Routine 11/21/2024 11:33 AM EST Panic disorder Mild intermittent asthma without complication Nephrolithiasis Bilateral carpal tunnel syndrome Chronic bilateral low back pain with sciatica, sciatica laterality unspecified Instability of right knee joint Heartburn Skin lesions Healthcare maintenance Peripheral polyneuropathy HEPATITIS B SURFACE ANTIBODY, QUALITATIVE Routine 11/21/2024 11:33 AM EST Panic disorder Mild intermittent asthma without complication Nephrolithiasis Bilateral carpal tunnel syndrome Chronic bilateral low back pain with sciatica, sciatica laterality unspecified Instability of right knee joint Heartburn Skin lesions Healthcare maintenance Peripheral polyneuropathy RPR (MONITOR) W/REFL TITER Routine 11/21/2024 11:33 AM EST Panic disorder Mild intermittent asthma without complication Nephrolithiasis Bilateral carpal tunnel syndrome Chronic bilateral low back pain with sciatica, sciatica laterality unspecified Instability of right knee joint Heartburn Skin lesions Healthcare maintenance Peripheral polyneuropathy HEPATITIS C AB W/REFL TO HCV RNA, QN, PCR Routine 11/21/2024 11:33 AM EST Panic disorder Mild intermittent asthma without complication Nephrolithiasis Bilateral carpal tunnel syndrome Chronic bilateral low back pain with sciatica, sciatica laterality unspecified Instability of right knee joint Heartburn Skin lesions Healthcare maintenance Peripheral polyneuropathy HIV 1/2 ANTIGEN/ANTIBODY, FOURTH GENERATION W/RFL Routine 11/21/2024 11:33 AM EST Panic disorder Mild intermittent asthma without complication Nephrolithiasis Bilateral carpal tunnel syndrome Chronic bilateral low back pain with sciatica, sciatica laterality unspecified Instability of right knee joint Heartburn Skin lesions Healthcare maintenance Peripheral polyneuropathy HEPATITIS B SURFACE ANTIGEN, EIA Routine 11/21/2024 11:33 AM EST Panic disorder Mild intermittent asthma without complication Nephrolithiasis Bilateral carpal tunnel syndrome Chronic bilateral low back pain with sciatica, sciatica laterality unspecified Instability of right knee joint Heartburn Skin lesions Healthcare maintenance Peripheral polyneuropathy BASIC METABOLIC PANEL Routine 11/21/2024 11:33 AM EST Panic disorder Mild intermittent asthma without complication Nephrolithiasis Bilateral carpal tunnel syndrome Chronic bilateral low back pain with sciatica, sciatica laterality unspecified Instability of right knee joint Heartburn Skin lesions Healthcare maintenance Peripheral polyneuropathy CBC Routine 11/21/2024 11:33 AM EST Panic disorder Mild intermittent asthma without complication Nephrolithiasis Bilateral carpal tunnel syndrome Chronic bilateral low back pain with sciatica, sciatica laterality unspecified Instability of right knee joint Heartburn Skin lesions Healthcare maintenance Peripheral polyneuropathy HEMOGLOBIN A1C Routine 11/21/2024 11:33 AM EST Panic disorder Mild intermittent asthma without complication Nephrolithiasis Bilateral carpal tunnel syndrome Chronic bilateral low back pain with sciatica, sciatica laterality unspecified Instability of right knee joint Heartburn Skin lesions Healthcare maintenance Peripheral polyneuropathy HEPATIC FUNCTION PANEL Routine 11/21/2024 11:33 AM EST Panic disorder Mild intermittent asthma without complication Nephrolithiasis Bilateral carpal tunnel syndrome Chronic bilateral low back pain with sciatica, sciatica laterality unspecified Instability of right knee joint Heartburn Skin lesions Healthcare maintenance Peripheral polyneuropathy VITAMIN D,25-OH,TOTAL,IA Routine 11/21/2024 11:33 AM EST Panic disorder Mild intermittent asthma without complication Nephrolithiasis Bilateral carpal tunnel syndrome Chronic bilateral low back pain with sciatica, sciatica laterality unspecified Instability of right knee joint Heartburn Skin lesions Healthcare maintenance Peripheral polyneuropathy TSH Routine 11/21/2024 11:33 AM EST Panic disorder Mild intermittent asthma without complication Nephrolithiasis Bilateral carpal tunnel syndrome Chronic bilateral low back pain with sciatica, sciatica laterality unspecified Instability of right knee joint Heartburn Skin lesions Healthcare maintenance Peripheral polyneuropathy LIPID PANEL, STANDARD Routine 11/21/2024 11:33 AM EST Panic disorder Mild intermittent asthma without complication Nephrolithiasis Bilateral carpal tunnel syndrome Chronic bilateral low back pain with sciatica, sciatica laterality unspecified Instability of right knee joint Heartburn Skin lesions Healthcare maintenance Peripheral polyneuropathy T4, FREE Routine 11/21/2024 11:33 AM EST Panic disorder Mild intermittent asthma without complication Nephrolithiasis Bilateral carpal tunnel syndrome Chronic bilateral low back pain with sciatica, sciatica laterality unspecified Instability of right knee joint Heartburn Skin lesions Healthcare maintenance Peripheral polyneuropathy CHLAMYDIA/N. GONORRHOEAE RNA, TMA, UROGENITAL Routine 11/21/2024 11:33 AM EST Panic disorder [...] PAP SMEAR Routine 10/07/2023 1:09 PM EST from Last 3 Months or Most Recently Relevant to Health Maintenance Results * (ABNORMAL) CBC auto differential (11/27/2024 6:44 PM EST) White Blood Count 11.9(H) 4.8 - 10.8 X10*3/uL [facility] Red Blood Count 4.68 4.20 - 5.50 X10*6/uL [facility] Hemoglobin 13.0 12.0 - 16.0 g/dl [facility] Hematocrit 39.6 37.0 - 47.0 % [facility] Mean Corpuscular Volume 84.6 80.0 - 98.0 fL [facility] Mean Corpuscular Hemoglobin 27.8 27.0 - 33.0 pg [facility] Mean Corpuscular HGB Conc 32.8 31.0 - 35.0 g/dl [facility] Red Cell Distribution Width 13.8 11.0 - 16.0 % [facility] Platelet Count 358 160 - 400 X10*3/uL [facility] Mean Platelet Volume 8.6(L) 9.4 - 12.3 fL [facility] Neutrophils Percent Auto 61.0 45 - 73 % [facility] Imm Gran Pct Auto 0.3 0.0 - 0.4 % [facility] Lymphocytes Percent Auto 28.4 20 - 40 % [facility] Monocytes Percent Auto 7.7 2 - 11 % [facility] Eosinophils Percent Auto 2.0 0 - 4 % [facility] Basophils Percent Auto 0.6 0 - 2 % [facility] NRBC Pct Auto 0.0 0.0 - 0.2 /100WBC [facility] Neutrophils Absolute Auto 7.3 2.0 - 8.3 x10*3/uL [facility] Imm Gran Abs Auto 0.04(H) 0.00 - 0.03 X10*3/uL [facility] Lymphocytes Absolute Auto 3.4 1.2 - 4.9 X10*3/uL [facility] Monocytes Absolute Auto 0.9 0.1 - 1.2 X10*3/uL [facility] Eosinophils Absolute Auto 0.2 0.0 - 0.4 X10*3/uL [facility] Basophils Absolute Auto 0.1 0.0 - 0.2 X10*3/uL [facility] NRBC Abs Auto 0.000 0.0 - 0.012 X10*3/uL [facility] 11/27/2024 6:44 PM EST 11/27/2024 6:46 PM EST us Generic External Data Provider LAB BLOOD ORDERAB LES Final Result Performing Organization Address City/[facility]/ZIP Co de Phone Number [facility] [address] [place] [phone] * Magnesium (11/27/2024 6:44 PM EST) Magnesium 2.1 1.6 - 2.6 mg/dL [facility] 11/27/2024 6:44 PM EST 11/27/2024 6:46 PM EST Generic External Data Provider LAB BLOOD ORDERAB LES Final Result Performing Organization Address City/[facility]/ZIP Co de Phone Number [facility] [address] [place] [address] [phone] * Lipase (11/27/2024 6:44 PM EST) Lipase 31 8 - 78 U/L [facility] 11/27/2024 6:44 PM EST 11/27/2024 6:46 PM EST us Generic External Data Provider LAB BLOOD ORDERAB LES Final Result [facility] [address] [place] [phone] * Comprehensive Metabolic Panel (11/27/2024 6:44 PM EST) Sodium 143 135 - 145 mmol/L [facility] Potassium 4.2 3.3 - 5.1 mmol/L [facility] Chloride 105 96 - 108 mmol/L [facility] Carbon Dioxide 27 22 - 29 mmol/L [facility] Anion Gap 15 12 - 20 [facility] Urea Nitrogen (BUN) 11 9 - 16 mg/dL [facility] Creatinine, Serum 0.73 0.5 - 1.4 mg/dL [facility] Creatinine Clr Calc Pharmacy 90.0 [facility] Comment:Provided height and weight: 154.94 cm,92.079 kg.eGFR (calculated from the MDRD study equation) and eCrCl(calculated from the Cockcroft-Gault equation) are based ondifferent parameters and may not yield comparable results.If eCrCl result is absurd, please check patient'sheight/weight. Estimated Glomerular Filt Rate >60 [facility] Comment:Chronic Kidney Disea se: Estimated GFR < 60 mL/min/1.91k4Dcapkf Kidney Disease: Estimated GFR < 15 mL/min/1.73m2 Glucose 88 60 - 115 mg/dL [facility] Calcium 9.3 8.4 - 10.2 mg/dL [facility] Bilirubin, Total 0.4 0.0 - 1.0 mg/dL [facility] Aspartate Amino Transferase 17 5 - 31 U/L [facility] Alanine Aminotransferase 22 0 - 31 U/L [facility] Total Protein 7.9 6.5 - 8.0 g/dL [facility] Albumin Level 4.2 3.5 - 5.0 g/dL [facility] Alkaline Phosphatase 94 39 - 117 U/L [facility] 11/27/2024 6:44 PM EST 11/27/2024 6:46 PM EST us Generic External Data Provider LAB BLOOD ORDERAB LES Final Result Performing Organization Address [facility]/ZIP Co de Phone Number [facility] [address] [place] [phone] * Vitamin D, 25-Hydroxy, Total, Immunoassay (11/21/2024 11:33 AM EST) Vitamin D 25-OH Total 30.3 >30 ng/mL [facility] Comment:Health Based Referen ce Values*< 20 ng/mL Stfupxseo65-96 ng/mL Insufficient> 30 ng/mL Sufficient*Ara CUETO. N Engl J Med. 2007;357:266-280Care must be taken in interpreting Vitamin D results fromdifferent laboratories and methodologies. Published datademonstrated that results from patients undergoinghemodialysis may show a negative bias when tested withvarious automated 25-OH vitamin D assays when compared toLC-MS/MS.When testing samples from patients whose predominant form ofVitamin D is Vitamin D2, such as patients receiving VitaminD2 supplementation, results that are subtherapeutic shouldbe confirmed with another method such as LC-MS/MS. Blood Venous blood specimen / Unknown 11/21/2024 11:33 AM EST 11/21/2024 1:40 PM EST us Meaghan Bhat DO LAB BLOOD ORDERABLES Final R esult Performing Organization Address [facility]/ZIP Co de Phone Number [facility] [address] [place] [address] [phone] * T-SPOT??.TB (11/21/2024 11:33 AM EST) T Spot TB Negative Negative [facility] Comment:A negative test resu lt does not exclude the possibilityof exposure to or infection with Mycobacteriumtuberculosis (M. tuberculosis). Patients with recentexposure to TB infected individuals exhibiting anegative T-SPOT.TB result should be considered forretesting within 6 weeks or if other relevant clinicalsymptoms indicate. Results from T-SPOT.TB testing mustbe used in conjunction with each individual'sepidemiological history, current medical status,and results of other diagnostic evaluations.The T-SPOT.TB test is qualitative and results arereported as positive, borderline, or negative, giventhat the test controls perform as expected. In linewith the Centers for Disease Control and Prevention's2010 recommendation to report quantitative measurementsalongside the qualitative result, the laboratoryprovides spot counts for informational purposes only.The T-SPOT.TB test should not be interpreted as aquantitative test. TS PANEL A 0 [facility] TS PANEL B 0 [facility] Negative Control Passed [facility] Positive Control Passed [facility] Comment:For additional infor mation, please refer [email or web address]/faq/BBD574(This link is being provided for informational/educational purposes only.)THIS TEST WAS PERFORMED AT:[employer] [id number] [place] [phone] W. MASON,MD,PHD 11/21/2024 11:3 3 AM EST 11/21/2024 1:40 PM EST us Meaghan Bhat DO LAB BLOOD ORDERABLES Final R esult [facility] [place], [place] [phone] * Hepatitis C Antibody with Reflex to HCV, RNA, Quantitative, Real-Time PCR (11/21/2024 11:33 AM EST) Pathologist [facility] [place] Hepatitis C Antibody Nonreactive Nonreactive [facility] Comment:Antibodies to HCV no t detected; does not exclude early acuteHCV infection. Blood Venous blood specimen / Unknown 11/21/2024 11:33 AM EST 11/21/2024 1:40 PM EST Meaghan Bhat DO LAB BLOOD ORDERABLES Final R esult Performing Organization Address City/[facility]/ZIP Co de Phone Number [facility] [address] [place] [phone] * Hepatitis A Antibody, Total (11/21/2024 11:33 AM EST) Hepatitis A Antibody IgG Nonreactive Nonreactive [facility] Blood Venous blood specimen / Unknown 11/21/2024 11:33 AM EST 11/21/2024 1:40 PM EST Meaghan Bhat LAB BLOOD ORDERABLES Final R esult Performing Organization Address City/[facility] Co de Phone Number [facility] [address] [place] [phone] * Chlamydia/N. Gonorrhoeae RNA, TMA, Urogenitial (11/21/2024 11:33 AM EST) CT PCR NOT DETECTED Not Detect. [facility] Comment:A not detected test result does not exclude the possibilityof infection because test results can be affected byimproper specimen collection, concurrent antibiotic therapy,or the number of organisms in the specimen which may bebelow the sensitivity of the test. As with many diagnostictests, results from the Xpert CT/NG assay should beinterpreted in conjunction with other laboratory andclinical data available to the clinician.Xpert CT/NG performance has not been evaluated in patientsless than 14 years of age. The assay should not be used forthe evaluationof suspected sexual abuse or for other medico-legalindications. Additional testing is recommended in anycircumstance when false positive or false negative resultscould lead to adverse medical, social or psychologicalconsequences. NG PCR NOT DETECTED Not Detect. [facility] Comment:A not detected test result does not exclude the possibilityof infection because test results can be affected byimproper specimen collection, concurrent antibiotic therapy,or the number of organisms in the specimen which may bebelow the sensitivity of the test. As with many diagnostictests, results from the Xpert CT/NG assay should beinterpreted in conjunction with other laboratory andclinical data available to the clinician.Xpert CT/NG performance has not been evaluated in patientsless than 14 years of age. The assay should not be used forthe evaluationof suspected sexual abuse or for other medico-legalindications. Additional testing is recommended in anycircumstance when false positive or false negative resultscould lead to adverse medical, social or psychologicalconsequences. Urine Urethral structure / Unknown 11/21/2024 11:33 AM EST 11/21/2024 1:24 PM EST Narrative [facility] - 11/21/2024 5:08 PM EST Urine Meaghan Bhat DO LAB MICROBIOLOGY - GENERAL O RDERABLES Final Result Performing Organization Address [facility]/ZIP Co de Phone Number [facility] [address] [place] [phone] * Hepatitis B surface antigen, EIA (11/21/2024 11:33 AM EST) Hepatitis B Surface Ag Negative Negative [facility] Blood Venous blood specimen / Unknown 11/21/2024 11:33 AM EST 11/21/2024 1:40 PM EST Meaghan Bhat DO LAB BLOOD ORDERABLES Final R esult Performing Organization Address City/[facility] Co de Phone Number [facility] [address] [place] [phone] * Hepatitis B Core Antibody, Total (11/21/2024 11:33 AM EST) Hepatitis B Core Antibody Nonreactive Nonreactive [facility] Blood Venous blood specimen / Unknown 11/21/2024 11:33 AM EST 11/21/2024 1:40 PM EST Meaghan Bhat DO LAB BLOOD ORDERABLES Final R esult Performing Organization Address [facility]/ZIP Co de Phone Number [facility] [address] [place] [phone] * RPR (Monitor) with Reflex to??Titer (11/21/2024 11:33 AM EST) RPR (Monitor) w/Refl Titer NON-REACTI VE NON-REACT [facility] Comment:THIS TEST WAS PERFOR MED AT:[facility] [place] [id number] DELEON MD Rapid Plasma Reagin Ab Titer TNP [facility] Blood Venous blood specimen / Unknown 11/21/2024 11:33 AM EST 11/21/2024 1:40 PM EST Meaghan Bhat DO LAB BLOOD ORDERABLES Final R esult Performing Organization Address [facility] Co de Phone Number [facility] [address] [place] [phone] * HIV-1/2 Antigen and Antibodies, Fourth Generation, with Reflexes (11/21/2024 11:33 AM EST) HIV AB/AG Nonreactive Nonreactive [facility] Comment:HIV-1 p24 Ag and/or HIV-1/HIV-2 Ab not detected.A test result that is nonreactive does not exclude thepossibility of exposure to or infection with HIV-1 and/orHIV-2. Nonreactive results in this assay for individualswith prior exposure to HIV-1 and/or HIV-2 may be due toantigen and antibody levels that are below the limit ofdetection of this assay.The OneMln HIV Ag/Ab Combo assay result andsupplemental assay results should be interpreted inconjunction with the patient's clinical presentation,history and other laboratory results. If the results areinconsistent with clinical evidence, additional testing issuggested to confirm the result. Blood Venous blood specimen / Unknown 11/21/2024 11:33 AM EST 11/21/2024 1:40 PM EST Meaghan Bhat LAB BLOOD ORDERABLES Final R esult Performing Organization Address City/[facility]/ZIP Co de Phone Number [facility] [address] [place] [phone] * Hepatitis B Surface Antibody, Qualitative (11/21/2024 11:33 AM EST) Pathologist [facility] [place] ~Hepatitis B Surface Antibody NONREACTIVE Nonreactive [facility] Comment:Nonreactive: < 8.00 mIU/mL Blood Venous blood specimen / Unknown 11/21/2024 11:33 AM EST 11/21/2024 1:40 PM EST Meaghan Bookervilma LAB BLOOD ORDERABLES Final R esult Performing Organization Address [facility] Co de Phone Number [facility] [address] [place] [address] [phone] * CBC (11/21/2024 11:33 AM EST) White Blood Count 10.2 4.8 - 10.8 X10*3/uL [facility] Red Blood Count 5.04 4.20 - 5.50 X10*6/uL [facility] Hemoglobin 13.9 12.0 - 16.0 g/dl [facility] Hematocrit 43.4 37.0 - 47.0 % [facility] Mean Corpuscular Volume 86.1 80.0 - 98.0 fL [facility] Mean Corpuscular Hemoglobin 27.6 27.0 - 33.0 pg [facility] Mean Corpuscular HGB Conc 32.0 31.0 - 35.0 g/dl [facility] Red Cell Distribution Width 13.8 11.0 - 16.0 % [facility] Platelet Count 373 160 - 400 X10*3/uL [facility] Mean Platelet Volume 9.5 9.4 - 12.3 fL [facility] NRBC Pct Auto 0.0 0.0 - 0.2 /100WBC [facility] NRBC Abs Auto 0.000 0.0 - 0.012 X10*3/uL [facility] Blood Venous blood specimen / Unknown 11/21/2024 11:33 AM EST 11/21/2024 1:38 PM EST Meaghan Bhat DO LAB BLOOD ORDERABLES Final R esult Performing Organization Address [facility] Co de Phone Number [facility] [address] [place] [phone] * TSH (11/21/2024 11:33 AM EST) Thyroid Stimulating Hormone 1.85 0.32 - 4.0 uIU/mL [facility] Comment:TSH 3rd Generation ( [employer]) Blood Venous blood specimen / Unknown 11/21/2024 11:33 AM EST 11/21/2024 1:40 PM EST Meaghan Bhat DO LAB BLOOD ORDERABLES Final R esult Performing Organization Address City/[facility] Co de Phone Number [facility] [address] [place] [phone] * T4, Free (11/21/2024 11:33 AM EST) Free T4 (Free Thyroxine) 1.04 0.71 - 1.85 ng/dL [facility] Blood Venous blood specimen / Unknown 11/21/2024 11:33 AM EST 11/21/2024 1:40 PM EST Meaghan Bhat DO LAB BLOOD ORDERABLES Final R esult [facility] [address] [place] [phone] * (ABNORMAL) Hemoglobin A1c (11/21/2024 11:33 AM EST) Hemoglobin A1c 6.1(H) <6.0 % [facility] Comment:Hemoglobin A1C Refer ence Range Adults: 4.8 - 6.0 % Non diabetic: < 6.0 % Goal: < 7.0 %Additional Action Suggested: > 8.0 %Note: Hemoglobin A1c results are invalid for patients with abnormal amounts of HbF. Blood transfusions may impact the HbA1c concentration in the patient sample. Estimated Average Glucose 128 mg/dL [facility] Comment:eAG = Estimated ave rage glucose which is %A1C expressed asaverage glucose, using the formula of the Y5N-LtvkepkKcbxwhy Glucose study (ADAG), Diabetes Care, Vol.31,#8,2007 Blood Venous blood specimen / Unknown 11/21/2024 11:33 AM EST 11/21/2024 1:38 PM EST us Meaghan Bhat DO LAB BLOOD ORDERABLES Final R esult [facility] [address] [place] [phone] * (ABNORMAL) Hepatic Function Panel (11/21/2024 11:33 AM EST) Bilirubin, Total 0.2 0.0 - 1.0 mg/dL [facility] Bilirubin, Direct <0.2 0.0 - 0.5 mg/dL [facility] Aspartate Amino Transferase 22 5 - 31 U/L [facility] Alanine Aminotransferase 27 0 - 31 U/L [facility] Total Protein 8.5(H) 6.5 - 8.0 g/dL [facility] Albumin Level 4.6 3.5 - 5.0 g/dL [facility] Alkaline Phosphatase 95 39 - 117 U/L [facility] Blood Venous blood specimen / Unknown 11/21/2024 11:33 AM EST 11/21/2024 1:40 PM EST Meaghan Bhat LAB BLOOD ORDERABLES Final R esult Performing Organization Address [facility] Co de Phone Number [facility] [address] [place] [phone] * (ABNORMAL) Lipid Panel, Standard (11/21/2024 11:33 AM EST) Triglycerides 96 <150 mg/dL [facility] Comment:Desirable Triglyceri de: less than 150 mg/dLBorderline High Triglyceride 150-199 mg/dLHigh Triglyceride: 200-499 mg/dLVery High Triglyceride: greater than or equal to 5OO mg/dL Cholesterol 222(H) <200 mg/dL [facility] Comment:Desirable Cholestero l: less than 200 mg/dLBorderline High Cholesterol: 200-239 mg/dLHigh Cholesterol: greater than 239 mg/dL LDL Cholesterol Calculated 146(H) <100 mg/dL [facility] Comment:Desirable LDL: less than 100 mg/dLNear Optimal/Above Optimal LDL: 110- 129 mg/dLBorderline High LDL: 130-159 mg/dLHigh LDL: 160-189 mg/dLVery High LDL: greater than or equal to 190 mg/dL HDL Cholesterol 57 >40 mg/dL [facility] Comment:Desirable HDL: great er than 40 mg/dL Note: This HDL assay may give artificially low results in patients with liver disease. Blood Venous blood specimen / Unknown 11/21/2024 11:33 AM EST 11/21/2024 1:40 PM EST us Meaghan Bhat DO LAB BLOOD ORDERABLES Final R esult Performing Organization Address City/[facility]/ZIP Co de Phone Number [facility] [address] [place] [phone] * (ABNORMAL) Basic Metabolic Panel (11/21/2024 11:33 AM EST) Sodium 138 135 - 145 mmol/L [facility] Potassium 3.9 3.3 - 5.1 mmol/L [facility] Chloride 105 96 - 108 mmol/L [facility] Carbon Dioxide 26 22 - 29 mmol/L [facility] Anion Gap 11(L) 12 - 20 [facility] Urea Nitrogen (BUN) 13 9 - 16 mg/dL [facility] Creatinine, Serum 0.66 0.5 - 1.4 mg/dL [facility] Estimated Glomerular Filt Rate >60 [facility] Comment:Chronic Kidney Disea se: Estimated GFR < 60 mL/min/1.68x6Cwzsyq Kidney Disease: Estimated GFR < 15 mL/min/1.73m2 Glucose 84 60 - 115 mg/dL [facility] Calcium 10.1 8.4 - 10.2 mg/dL [facility] Blood Venous blood specimen / Unknown 11/21/2024 11:33 AM EST 11/21/2024 1:40 PM EST Meaghan Bhat DO LAB BLOOD ORDERABLES Final R esult [facility] [address] [place], [place] [phone] * Hm Mammography (11/05/2024 11:26 AM EST) Anatomical Region Laterality Modality Other Historical Provider HEALTH MAINTENANCE Final Result * HPV mRNA E6/E7 w/Reflex to HPV Genotypes 16, 18/45 (10/07/2023 1:09 PM EST) HPV nRNA E6/E7 Not Detected Not Detected [facility] Comment:Methodology: Transcr iption-Mediated AmplificationThis assay detects E6/E7 viral messenger RNA (mRNA) from 14high-risk HPV types (16,18,31,33,35,39,45,51,52,56,58,59,66,68).Cervical sources are required for HPV testing.If a vaginal source from a patient who has had atotal hysterectomy with removal of cervix wassubmitted, please contact the testing laboratoryfor alternative testing options.For additional information, please refer tohttp://education.Wriggle/faq/IGL660f1(This link if provided for information/educational purposes only.)THIS TEST WAS PERFORMED AT:[employer] [address] [id number] DELEON MD HPV mRNA E6/E7 TNP [facility] HPV 16 RNA TNP [facility] HPV 18/45 RNA TNP [facility] 10/07/2023 1:09 PM EST 10/10/2023 11:30 AM EST us Meaghan Bhat DO LAB CYTOLOGY ORDERABLES Shanita latif Result [facility] [address] [place] [phone] * Pap Smear (10/07/2023 1:09 PM EST) 10/07/2023 1:09 PM EST 10/10/2023 11:30 AM EST Narrative [facility] - 10/19/2023 1:00 PM EST ----- ------- Name: Viry Bryant ? Age/Sex: 52/F ? : 1970 Unit#: [id number] ?? Attend Dr: Meaghan Bhat DO ?Re10/07/23 ?Status: DEP REF ? Location: HO.HHCLNP ? Disch: ? ----- ------- SPEC : [id number] ?RECD: 10/10/23 ? STATUS: ??SOUT ? REQ NUM: [id number] ? GERONIMO: 10/07/23-3577 ? SUBM DR: Meaghan Bhat DO ? ENTERED: ??10/10/238 ?SP TYPE: Pap Smr ?OTHR DR: ? ORDERED: ??Pap Smear ? Interpretation ?? Satisfactory for evaluation. ?? Negative for intraepithelial lesion or malignancy. ?HPV mRNA E6/E7: ?NOT DETECTED ? This assay detects E6/E7 viral messenger RNA (mRNA) from 14 high-risk HPV types (16, 18, ?? 31, 33, 35, 39, 45, 51, 52, 56, 58, 59, 66, 68) ?? HPV testing performed by [facility], [place], [place]. ??See reference laboratory ?? portion of the EMR for entire report. ?Clinical Information LMP: Postmenopausal Previous PAP test: Unknown date, WNL ? Material Received ?? ThinPrep-Cervical ----- ------- Signed (signature on file) MEHNAZ Yadav (ASCP) 10/19/23 1300 ? ----- ------- ? END OF REPORT ? us Meaghan Bhat DO LAB CYTOLOGY ORDERABLES Shanita latif Result [facility] [address] [place] [phone] from Last 3 Months or Most Recently Relevant to Health Maintenance [facility] Care Teams Document Control Coordinator Relationship Specialty Start Date End Date Meaghan Baht DO [address] [place] [phone] PCP - General Family Medicine 02/18/20 Ab Montes Ship'S CaptainSupreme Court Judge 11/26/24
--- OUTSIDE RECORDS SUMMARY | 2024-11-27 21:25 | XMS_ITS | Encounter Summary ---
Author Organization [employer] Address [address] [facility] 7t [place] [address] Care Team Providers Care Mitten Stitcher Name Role Phone Meaghan Bhat DO Primary Care Provider [phone] Reason for Referral * Imaging (Routine) - Authorized Specialty Diagnoses / Procedures Referred By Contac t Referred To Contact Radiology Diagnoses Nephrolithiasis Procedures US RENAL BI Meaghan Bhat DO [address] [place] [address] Phone: tel: fax: [address] Phone: tel: fax: Referral ID Status Reason Start Date Expiration Date V isits Requested Visits Authorized [id number] Authorized 11/21/2024 11/21/2025 1 1 * Consultation (Routine) - Authorized Specialty Diagnoses / Procedures Referred By Contac t Referred To Contact Family Medicine Diagnoses Skin lesions Meaghan Bhat DO [address] [place] [address] Phone: tel: fax: Referral ID Status Reason Start Date Expiration Date Visits Requested Visits Authorized [id number] Authorized Specialty Services Required 11/21/2024 11/21/2025 1 1 * Hospital - Outpatient (Routine) - Authorized Specialty Diagnoses / Procedures Referred By Ana calvillo Referred To Contact Diagnoses Sleep-disordered breathing Procedures Polysomnography Meaghan Bhat DO [address] [place] [address] Phone: tel: fax: [facility] Referral ID Status Reason Start Date Expiration Date V isits Requested Visits Authorized [id number] Authorized 11/21/2024 11/21/2025 1 1 * Consultation (Urgent) - Authorized Specialty Diagnoses / Procedures Referred By Ana calvillo Referred To Contact Pain Medicine Diagnoses Chronic bilateral low back pain with sciatica, sciatica laterality unspecified Meaghan Bhat DO [address] [place], [place] Phone: tel: fax: [facility] [place] [address] [place] [address] 2nd [address] [place], [place] Phone: tel: fax: Referral ID Status Reason Start Date Expiration Date Visits Requested Visits Authorized [id number] Authorized Specialty Services Required 11/22/2024 11/22/2025 6 6 * Consultation (Urgent) - Authorized Specialty Diagnoses / Procedures Referred By Ana calvillo Referred To Contact Breast Surgery Diagnoses Abnormal mammogram of left breast [place] [address] Phone: tel: fax: [facility] [address] [facility] [address] [place], [place] Phone: tel: fax: Referral ID Status Reason Start Date Expiration Date Visits Requested Visits Authorized [id number] Authorized Specialty Services Required 11/22/2024 11/22/2025 6 6 Encounter Details Date Type Department Care Team (Late st Contact Info) Description 11/21/2024 9:30 AM EST Office Visit [facility] [address] [facility] [place] [address] Meaghan Bhat DO [address] [facility] [place] [address] Routine history and physical examination of adult [...] She had eye exam in JUL at [facility]. She was told that she had small [...] a 22 y/o daughter, who is her CASINO BEVERAGE SERVER, and 14 y/o son. She is not [...] breast surgeon for eval BMI 38.0-38.9,adult -encouraged [id number] 5 Servings of fruit and vegetables each [...] Type Priority Associated Diagnoses Orde r Schedule Polysomnography Sleep Center Routine Sleep-disordered breathing Expected: [...] Expected: 11/21/2024 (Approximate), Expires: 11/21/2025 Referral to [facility] Derm Skin Adult Outpatient Referral Routine Skin lesions Expected: 11/21/2024 (Approximate), Expires: 11/21/2025 documented as of this encounter Procedures Procedure Name Priority Date/Time Associated Diagnosis Comments T-SPOT(R).TB Routine 11/21/2024 11:33 AM EST Routine history and physical examination of adult documented in this encounter Results * T-SPOT??.TB (11/21/2024 11:33 AM EST) [facility] T Spot TB Negative Negative [facility] Comment:A negative test resu lt [...] as aquantitative test. TS PANEL A 0 [facility] TS PANEL B 0 [facility] Negative Control Passed [facility] Positive Control Passed [facility] Comment:For additional infor mation, please refer tohttp://education.Zumbox/faq/QFG090(This link is being provided for informational/educational purposes only.)THIS TEST WAS PERFORMED AT:[employer] [id number] [place] [address]SAQNZZIRAMÍREZ CROWLEY MD,PHD 11/21/2024 11:3 3 AM EST 11/21/2024 1:40 PM EST us Meaghan Bhat DO LAB BLOOD ORDERABLES Final R esult [facility] [address] [place] [phone] documented in this encounter Visit Diagnoses Diagnosis Routine history [...] documented as of this encounter Care Teams Mitten Stitcher Relationship Specialty Start Date End Date Meaghan Bhat DO [address] [place] [address] PCP - General Family Medicine 02/18/20 documented as of this encounter
--- OUTSIDE RECORDS SUMMARY | 2024-11-27 21:25 | XMS_ITS | Encounter Summary ---
Author Organization [employer] Address [address] [facility] [address] 7[address] [place] [address] Care Team Providers Care Quotation Clerk Name Role Phone Meaghan Bhat DO Primary Care Provider + [phone] Encounter Details Date Type Department Care Team [...] documented as of this encounter Care Teams Quotation Clerk Relationship Specialty Start Date End Date Meaghan Bhat DO [address] [place] [address] PCP - General Family Medicine 02/18/20 documented as of this encounter
--- OUTSIDE RECORDS SUMMARY | 2024-11-27 21:26 | XMS_ITS | Encounter Summary ---
Author Organization [facility] Address [address] [facility] 7t [place] [address] Care Team Providers Care Crusher Operator Name Role Phone Meaghan Bhat DO Primary Care Provider [phone] Encounter Details Date Type Department Care Team (Latest Contact Info) Description 09/10/2020 Abstract [facility] CONVERSIONS Dental, Provider, DDS Social History Tobacco [...] on filedocumented in this encounter Care Teams Crusher Operator Relationship Specialty Start Date End Date Meaghan Bhat DO [address] [place] [phone] PCP - General Family Medicine 02/18/20 Ab Montes Tennis [employer] InstructorOperations Label Clerk 11/26/24 documented as of this encounter
--- OUTSIDE RECORDS SUMMARY | 2024-11-27 21:26 | XMS_ITS | Encounter Summary ---
Author Organization [employer] Address [address] [facility] [address] 7[address] [place] [address] Care Team Providers Care General Cleaner Name Role Phone Meaghan Bhat DO Primary Care Provider + [phone] Encounter Details Date Type Department Care Team (Late st Contact Info) Description 11/06/2024 Orders Only [facility] [address] [place], [place] [phone] ProviderDeb MD Social History Tobacco Use Types [...] AM EST) Anatomical Region Laterality Modality Other us Historical Provider HEALTH MAINTENANCE Final Result documented in this encounter Visit Diagnoses Not on filedocumented in this encounter Additional Health Concerns Assessment Noted Time PHQ-9 Depression Total Score: 2 11/16/19 24 10:21 AM EST documented as of this encounter Care Teams General Cleaner Relationship Specialty Start Date End Date Meaghan Bhat DO [address] [place] [address] PCP - General Family Medicine 02/18/20 Ab Montes Gang PusherLoose Hand Packer 11/26/24 documented as of this encounter
--- OUTSIDE RECORDS SUMMARY | 2024-11-27 21:26 | XMS_ITS | Encounter Summary ---
Author Organization [employer] Address [address] [facility] [address] 7[address] [place] [address] Care Team Providers Care Bait Tier Name Role Phone Meaghan Bhat DO Primary Care Provider + [phone] Reason for Visit * Reason Onset Date Comments [facility] breast order 10/29/2024 Encounter Details Date Type Department Care Team (Late st Contact Info) Description 10/29/2024 Telephone [facility] [address] [place], [place] [phone] Celina Brito, JONATHAN [address] [place] [address] [facility] breast order Social History Tobacco Use Types [...] signature. PCP signed, RN has faxed to [phone]. Confirmation page received. documented in this encounter Plan of Treatment Not on file documented as of this encounter Visit Diagnoses Not on filedocumented in this encounter Additional Health Concerns Assessment Noted Time PHQ-9 Depression Total Score: 2 11/16/19 24 10:21 AM EST documented as of this encounter Care Teams Bait Tier Relationship Specialty Start Date End Date Meaghan Bhat DO [address] [place] [phone] PCP - General Family Medicine 02/18/20 documented as of this encounter
--- OUTSIDE RECORDS SUMMARY | 2024-11-27 21:26 | XMS_ITS | Encounter Summary ---
Author Organization [employer] Address [address] [facility] [address] [place] [address] Care Team Providers Care Nutrition Assistant Name Role Phone Meaghan Bhat DO Primary Care Provider + [phone] Encounter Details Date Type Department Care Team (Latest Contact Info) Description 11/27/2024 Travel Social History Tobacco Use Types Packs/Day [...] documented as of this encounter Care Teams Nutrition Assistant Relationship Specialty Start Date End Date Meaghan Bhat DO [address] [place] [address] PCP - General Family Medicine 02/18/20 Ab Montes Director Of Flight OperationsCardiac Tech 11/26/24 documented as of this encounter
--- OUTSIDE RECORDS SUMMARY | 2024-11-27 21:26 | XMS_ITS | Encounter Summary ---
Author Organization [employer] Address [address] [facility] [address] [place] [address] Care Team Providers Care Director Of Strategic Initiatives Name Role Phone Meaghan Bhat DO Primary Care Provider + [phone] Encounter Details Date Type Department Care Team (Late st Contact Info) Description 11/03/[address] [facility] [address] [place], [place] [phone] ProviderDeb MD Social History Tobacco Use Types [...] documented as of this encounter Care Teams Director Of Strategic Initiatives Relationship Specialty Start Date End Date Meaghan Bhat DO [address] [place] [phone] PCP - General Family Medicine 02/18/20 Ab Montes Shingle CutterHotel Casino Floorperson 11/26/24 documented as of this encounter
--- OUTSIDE RECORDS SUMMARY | 2024-11-27 21:26 | XMS_ITS | Encounter Summary ---
Author Organization [employer] Address [address] [facility] [address] 7t [place] [address] Care Team Providers Care Inspector Technician Name Role Phone Meaghan Bhat DO Primary Care Provider + [phone] Reason for Visit * Reason Comments Care Coordination ICP Care Plan Encounter Details Date Type Department Care Team ([facility] st Contact Info) Description 11/26/2024 Telephone [facility] [address] [place], [place] [phone] Meaghan Bhat DO [address] [place] [address] Care Coordination (ICP Care Plan ) Social History Tobacco Use Types Packs/Day Years [...] as of this encounter Progress Notes * Kaitlyn Wayne - 11/26/2024 11:52 AM EST PCP Designee has received and reviewed Care Plan from [facility]: Regional Engineer: Ab Montes Contact Information: [phone] Care Plan scanned into patient's EHR and notification sent to PCP. documented in this encounter Plan of Treatment Not on file documented as of this encounter Visit Diagnoses Not on filedocumented in this encounter Additional Health Concerns Assessment Noted Time PHQ-9 Depression Total Score: 6 11/21/19 25 9:42 AM EST documented as of this encounter Care Teams Inspector Technician Relationship Specialty Start Date End Date Meaghan Bhat DO [address] [place] [phone] PCP - General Family Medicine 02/18/20 Ab Montes Oncology PharmacistNutrition Manager 11/26/24 documented as of this encounter
--- OUTSIDE RECORDS SUMMARY | 2024-11-27 21:26 | XMS_ITS | Clinical Summary ---
Author Organization [facility] it[facility] Address [address] [place] [address] Care Team Providers Care Vocational Rehabilitation Technician Name Role Phone Unavailable Primary Care Provider Unavailabl e Surgical History Surgery Date Site/Laterality Comments TUBAL LIGATION PROCEDURE: HISTORICAL TUBAL LIGATION HERNIA REPAIR PROCEDURE: HISTORICAL HERNIA REPAIR/ING OTHER SURGICAL HISTORY PROCEDURE: IA UNLISTED PX MECKEL'S DIVERTICULUM & MESENTERY OTHER SURGICAL HISTORY PROCEDURE: IA RENAL NDSC NEPHROTOMY W/WO IRRIGATION SECTION PROCEDURE: HISTORICAL DELIVERY HYSTEROSCOPY 09/2019 PROCEDURE: IA HYSTEROSCOPY BX ENDOMETRIUM&/POLYPC W/WO D&C; COMMENT: with [...] AM EDT Narrative 04/11/2019 1:28 PM EDT [facility] Diagnostic Imaging Department [address] [place] [address] [phone] Patient: ??VIRY DODGE ?/Age/Sex: 1970 - 48 - F Unit#: ??[id number] ? Location/Status: ??SPDIMAM/REG CLI ? Mnemonic/Ordering Site: ??DIGSC/SPMAM Ordering Physician: ??OLGACONCEPCIÓN ANIKETRoxanne Deirdre Screening Digital - 04/11/19 - 1041 EXAM: Deirdre Screening Digital EXAM DATE AND TIME: 04/11/2019 10:44 AM HISTORY: ??Screening. COMPARISON: ??Previous exams performed in [place] in 2013 are not available per the patient. TECHNIQUE: CC and MLO views of both breasts were obtained using full field digital mammography. Bilateral digital breast tomosynthesis was performed in the MLO projection. Computer aided detection with the CSR 7.2-H was employed. TISSUE DENSITY: c. The [...] Routine screening mammogram BILATERAL in 1 year. 54944, 88280 3341F, 7025F Dictating Physician: ??BERNICE BOYD MD Electronically Signed by: ??BERNICE BOYD MD Dic Date/Time: ??04/11/19 1327 Sign date/Time: ??04/11/19 1328 Procedure Note Bernice Boyd - 10/12/2022 [facility] Diagnostic Imaging Department [address] [place] [address] Patient: VIRY DODGE /Age/Sex: 1970 - 48- F Unit#: [id number] Location/Status: SPDIMAM/REG CLI Mnemonic/Ordering Site: [facility] Ordering Physician: CONCEPCIÓN YEH CNM [facility] Screening Digital - 04/11/19 - 1042 EXAM: [facility] Screening Digital EXAM DATE AND TIME: 04/11/2019 10:44 AM HISTORY: Screening. COMPARISON: Previous exams performed in [place] in 2013 are notavailable per the patient. TECHNIQUE: CC and MLO views of both breasts were obtained using fullfield digital mammography. Bilateral digital breast tomosynthesis was performedin the MLO projection. Computer aided detection with the CSR 7.2-Hwas employed. TISSUE DENSITY: c. The breasts [...] Routine screening mammogram BILATERAL in 1 year. 42185, 31923 3341F, 7025F Dictating Physician: BERNICE BOYD MD Electronically Signed by: BERNICE BOYD MD Dic Date/Time: 04/11/19 1327 Sign date/Time: 04/11/19 1328 Concepción Yeh CNM IMG BI PROCEDURES * Pap smear (03/30/2019) 03/30/2019 Narrative HISTORICAL TESTING LAB RESULTING AGENCY - 04/04/2019 4:21 PM EDT [id number] THINPREP PAP, IMAGED: NEGATIVE FOR SQUAMOUS INTRAEPITHELIAL [...] LMP 03/18/19, NEG HC PER PT IN [place], Z12.4 Concepción Yeh CNM LAB CYTOLOGY ORDERAB LES HISTORICAL TESTING LAB RESULTING AGENCY from Last 3 Months or Most Recently Relevant to Health Maintenance
--- OUTSIDE RECORDS SUMMARY | 2024-11-27 21:26 | XMS_ITS | Encounter Summary ---
Author Organization [employer] Address [address] 7t [place] [address] Care Team Providers Care Shoe Sewing Machine Operator And Tender Name Role Phone Meaghan Bhat DO Primary Care Provider + [phone] Encounter Details Date Type Department Care Team ([facility] st Contact Info) Description 11/26/2024 Patient Outreach [facility] [address] [place], [place] [phone] Meaghan Bhat DO [address] [place] [address] Social History Tobacco Use Types Packs/Day Years [...] Progress Notes * Kaitlyn Wayne - 11/26/2024 11:51 AM EST Error documented in this encounter Plan of Treatment Not on file documented as of this encounter Visit Diagnoses Not on filedocumented in this encounter Additional Health Concerns Assessment Noted Time PHQ-9 Depression Total Score: 6 11/21/19 9:42 AM EST documented as of this encounter Care Teams Shoe Sewing Machine Operator And Tender Relationship Specialty Start Date End Date Meaghan Bhat DO [address] [place] [phone] PCP - General Family Medicine 02/18/20 Ab Montes Lead Laying And Gluing Machine OperatorAnnealing Torch Operator 11/26/24 documented as of this encounter
--- OUTSIDE RECORDS SUMMARY | 2024-11-27 21:26 | XMS_ITS | Encounter Summary ---
Author Organization [employer] Address [address] [place] [address] Care Team Providers Care Regulatory Process Manager Name Role Phone Meaghan Bhat DO Primary Care Provider + [phone] Encounter Details Date Type Department Care Team (Late st Contact Info) Description 11/27/2024 Orders Only GENERIC EXTERNAL DATA DEPARTMENT Provider, Generic External Data Social History Tobacco Use Types Packs/Day Years [...] Name Priority Date/Time Associated Diagnosis Comments CBC WITH AUTO DIFFERENTIAL Routine 11/27/2024 6:44 PM EST MAGNESIUM Routine 11/27/2024 6:44 PM EST LIPASE Routine 11/27/2024 6:44 PM EST COMPREHENSIVE METABOLIC PANEL Routine 11/27/2024 6:44 PM EST documented in this encounter Results * Lipase (11/27/2024 6:44 PM EST) Lipase 31 8 - 78 U/L [facility] 11/27/2024 6:44 PM EST 11/27/2024 6:46 PM EST us Generic External Data Provider LAB BLOOD ORDERAB LES Final Result Performing Organization Address [facility] Co de Phone Number [facility] [address] [place] [phone] * Magnesium (11/27/2024 6:44 PM EST) Magnesium 2.1 1.6 - 2.6 mg/dL [facility] 11/27/2024 6:44 PM EST 11/27/2024 6:46 PM EST us Generic External Data Provider LAB BLOOD ORDERAB LES Final Result Performing Organization Address [facility] Co de Phone Number [facility] [address] [place] [address] [phone] * Comprehensive Metabolic Panel (11/27/2024 6:44 PM EST) Sodium 143 135 - 145 mmol/L [facility] Potassium 4.2 3.3 - 5.1 mmol/L [facility] Chloride 105 96 - 108 mmol/L [facility] Carbon Dioxide 27 22 - 29 mmol/L [facility] Anion Gap 15 12 - 20 [facility] Urea Nitrogen (BUN) 11 9 - 16 mg/dL [facility] Creatinine, Serum 0.73 0.5 - 1.4 mg/dL [facility] Creatinine Clr Calc Pharmacy 90.0 [facility] Comment:Provided height and weight: 154.94 cm,92.079 kg.eGFR (calculated from the MDRD study equation) and eCrCl(calculated from the Cockcroft-Gault equation) are based ondifferent parameters and may not yield comparable results.If eCrCl result is absurd, please check patient'sheight/weight. Estimated Glomerular Filt Rate >60 [facility] Comment:Chronic Kidney Disea se: Estimated GFR < 60 mL/min/1.76z5Yhcqts Kidney Disease: Estimated GFR < 15 mL/min/1.73m2 Glucose 88 60 - 115 mg/dL [facility] Calcium 9.3 8.4 - 10.2 mg/dL [facility] Bilirubin, Total 0.4 0.0 - 1.0 mg/dL [facility] Aspartate Amino Transferase 17 5 - 31 U/L [facility] Alanine Aminotransferase 22 0 - 31 U/L [facility] Total Protein 7.9 6.5 - 8.0 g/dL [facility] Albumin Level 4.2 3.5 - 5.0 g/dL [facility] Alkaline Phosphatase 94 39 - 117 U/L [facility] 11/27/2024 6:44 PM EST 11/27/2024 6:46 PM EST us Generic External Data Provider LAB BLOOD ORDERAB LES Final Result [facility] [address] [place], [place] [phone] * (ABNORMAL) CBC auto differential (11/27/2024 6:44 PM EST) White Blood Count 11.9(H) 4.8 - 10.8 X10*3/uL [facility] Red Blood Count 4.68 4.20 - 5.50 X10*6/uL [facility] Hemoglobin 13.0 12.0 - 16.0 g/dl [facility] Hematocrit 39.6 37.0 - 47.0 % [facility] Mean Corpuscular Volume 84.6 80.0 - 98.0 fL [facility] Mean Corpuscular Hemoglobin 27.8 27.0 - 33.0 pg [facility] Mean Corpuscular HGB Conc 32.8 31.0 - 35.0 g/dl [facility] Red Cell Distribution Width 13.8 11.0 - 16.0 % [facility] Platelet Count 358 160 - 400 X10*3/uL [facility] Mean Platelet Volume 8.6(L) 9.4 - 12.3 fL [facility] Neutrophils Percent Auto 61.0 45 - 73 % [facility] Imm Gran Pct Auto 0.3 0.0 - 0.4 % [facility] Lymphocytes Percent Auto 28.4 20 - 40 % [facility] Monocytes Percent Auto 7.7 2 - 11 % [facility] Eosinophils Percent Auto 2.0 0 - 4 % [facility] Basophils Percent Auto 0.6 0 - 2 % [facility] NRBC Pct Auto 0.0 0.0 - 0.2 /100WBC [facility] Neutrophils Absolute Auto 7.3 2.0 - 8.3 x10*3/uL [facility] Imm Gran Abs Auto 0.04(H) 0.00 - 0.03 X10*3/uL [facility] Lymphocytes Absolute Auto 3.4 1.2 - 4.9 X10*3/uL [facility] Monocytes Absolute Auto 0.9 0.1 - 1.2 X10*3/uL [facility] Eosinophils Absolute Auto 0.2 0.0 - 0.4 X10*3/uL [facility] Basophils Absolute Auto 0.1 0.0 - 0.2 X10*3/uL [facility] NRBC Abs Auto 0.000 0.0 - 0.012 X10*3/uL [facility] 11/27/2024 6:44 PM EST 11/27/2024 6:46 PM EST us Generic External Data Provider LAB BLOOD ORDERAB LES Final Result Performing Organization Address City/State/[facility] Co de Phone Number [facility] [address] [place] [address] [phone] documented in this encounter Visit Diagnoses Not on filedocumented in this encounter Additional Health Concerns Assessment Noted Time PHQ-9 Depression Total Score: 6 11/21/19 25 9:42 AM EST documented as of this encounter Care Teams Regulatory Process Manager Relationship Specialty Start Date End Date Meaghan Bhat DO [address] [place] [address] PCP - General Family Medicine 02/18/20 Ab Montes Adapted Physical Education TeacherCertified Hearing Instrument Dispenser 11/26/24 documented as of this encounter
--- OUTSIDE RECORDS SUMMARY | 2024-11-27 21:26 | XMS_ITS | Encounter Summary ---
Author Organization [employer] Address [address] [place] [address] Care Team Providers Care Pilot Name Role Phone Meaghan Bhat DO Primary Care Provider + [phone] Reason for Visit * Reason Onset Date Comments Breast US order 11/07/2024 Encounter Details Date Type Department Care Team (Late st Contact Info) Description 11/07/2024 Telephone [facility] [address] [place], [place] [phone] Celina Brito, JONATHAN [address] [place] [address] Breast US order Social History Tobacco Use [...] EST RN received breast US order from [employer] for 05/06/25 at 8am. PCP has signed and RN has faxed to [phone], confirmation page recieved. documented in this encounter Plan of Treatment Not on file documented as of this encounter Visit Diagnoses Not on filedocumented in this encounter Additional Health Concerns Assessment Noted Time PHQ-9 Depression Total Score: 2 11/16/19 24 10:21 AM EST documented as of this encounter Care Teams Pilot Relationship Specialty Start Date End Date Meaghan Bhat DO [address] [place] [address] PCP - General Family Medicine 02/18/20 documented as of this encounter
--- OUTSIDE RECORDS SUMMARY | 2024-11-27 21:26 | XMS_ITS | Encounter Summary ---
Author Organization [employer] Address [address] 7t [place] [address] Care Team Providers Care Front Desk Specialist Name Role Phone Meaghan Bhat DO Primary Care Provider [phone] Reason for Referral * Consultation (Routine) - Pending Review Specialty Diagnoses / Procedures Referred By Ana calvillo Referred To Contact Gastroenterology Diagnoses Colon cancer screening Renetta Frey MD [address] [place] [phone] Phone: tel: fax: Referral ID Status Reason Start Date Expiration Date Visits Requested Visits Authorized [id number] Pending Review Specialty Services Required 11/27/2024 11/27/2025 1 1 Reason for Visit * Reason Comments Abdominal Pain Encounter Details Date Type Department Care Team (Late st Contact Info) Description 11/27/2024 5:20 PM EST Office Visit [facility] [address] [place] [address] [phone] Renetta Frey MD [address] [place] [phone] RLQ abdominal pain (Primary Dx); Colon cancer screening Social History Tobacco Use Types Packs/Day Years [...] Mass Index 38.38 11/27/2024 5:00 PM EST documented in this encounter Progress Notes * Renetta Frye MD - 11/27/2024 5:20 PM EST Images from the original note were not included. Subjective Patient ID: Viry Marti is a 54 y.o. female with past medical history of GERD and asthma who presents to walk in clinic for Abdominal Pain. Pt reports 2 days abdominal pain, worse yesterday. Yesterday pain was 10/10 with blood in her stool. She has not eaten much today due to fear and had a bowel movement without blood. Denies fever. Hadchills yesterday. Pain today is uncomfortable at rest but 7/10 when she is walking. Pt has history of hospitalization for diverticulitis. Last colonoscopy with diverticula in 2019 recommending repeatin 5 years. Pt has choric diarrhea since gall bladder removal in 2002. Review of Systems Constitutional: Positive for chills. Gastrointestinal: Positive for abdominal pain, blood in stool, diarrhea and nausea. Objective Visit Vitals BP 127/78 (BP Location: Left arm, Patient Position: Sitting, BP Cuff Size: Large adult) Pulse 78 Temp 98.3 ??F (36.8 ??C) (Oral) Resp 16 Body mass index is 38.38 kg/m??. Physical Exam Constitutional: Appearance: Normal appearance. She is obese. Comments: Pt appeared comfortable until I had her get on the exam table which was difficult due to pain. Abdominal: Comments: + bowel sounds, no distention, no rebound, slight guarding. Pain located RLQ Neurological: Mental Status: She is alert. Problem List Items Addressed This Visit RLQ abdominal pain - Primary Differential includes diverticulitis, appendicitis, gastritis vs other. No evidence of dehydration. Vitals stable. Exam concerning for appendicitis. PT agrees to go to ER for further evaluation. Colon cancer screening PT due this year or colonoscopy. Referral placed 11/27/24 Relevant Orders Referral to Gastroenterology * Evelyn Cox RN - 11/27/2024 5:20 PM EST Expect called to [facility] at [phone] per verbal order per Dr. Frey. RN gave verbal report Stephanie, whom verbalized understanding. [facility] to F/U as needed. documented in this encounter Miscellaneous Notes * Assessment & Plan Note - Renetta Frey MD - 11/27/2024 5:45 PM EST Associated Problem(s): Colon cancer screening PT due this year or colonoscopy. Referral placed 11/27/24 * Assessment & Plan Note - Renetta Frey MD - 11/27/2024 5:45 PM EST Associated Problem(s): RLQ abdominal pain Differential includes diverticulitis, appendicitis, gastritis vs other. No evidence of dehydration. Vitals stable. Exam concerning for appendicitis. PT agrees to go to ER for further evaluation. documented in this encounter Plan of Treatment Scheduled Referrals Name Type Priority Associated Diagnoses Order Schedule Referral to Gastroenterology Outpatient Referral Routine Colon cancer screening Expected: 11/27/2024 (Approximate), Expires: 11/27/2025 documented as of this encounter Visit Diagnoses Diagnosis RLQ abdominal pain- Primary Abdominal pain, right lower quadrant Colon cancer screening Special screening for malignant neoplasms, colon documented in this encounter Additional Health Concerns Assessment Noted Time PHQ-9 Depression Total Score: 6 11/21/19 25 9:42 AM EST documented as of this encounter Care Teams Front Desk Specialist Relationship Specialty Start Date End Date Meaghan Bhat DO [address] [place] [address] PCP - General Family Medicine 02/18/20 Ab Montes Business Team LeaderPlastics Fabricator Or Welder 11/26/24 documented as of this encounter
--- OUTSIDE RECORDS SUMMARY | 2024-11-27 21:26 | XMS_ITS | Encounter Summary ---
Author Organization [employer] Address [address] 7t [place] [address] Care Team Providers Care Restaurant Recruiter Name Role Phone Meaghan Bhat DO Primary Care Provider + [phone] Reason for Visit * Reason Onset Date Comments Nurse Triage 11/27/2024 Encounter Details Date Type Department Care Team (Late st Contact Info) Description 11/27/2024 Telephone [facility] [address] [place], [place] [phone] Meaghan Bhat DO [address] [place], [place] [phone] Nurse Triage Social History Tobacco Use Types Packs/Day Years [...] encounter Miscellaneous Notes * Telephone Encounter - Pratima Arrieta, LEAD PRESS OPERATOR - 11/27/2024 10:59 AM EST Triage call returned with BLS #[id number] Vel. Patient reports that she had lower abdominal pain yesterday that was followed with stool with blood on it. Stool was soft and denies constipation. No blood noted in toilet water. Blood was bright red. No fever. Has history of diverticulosis.Denies Nuts or Seeds in diet. Drinks water and has few fruits or vegetable. Patient today with lower abdominal pain 4/10 with tenderness with self palpation. Disposition reviewed and patient in agreement with plan. No PCP or Team appts. Available at time of call. [facility] hours and availability providedfor patient evaluation. Triage nurse informed the patient may have a wait of 1-2 hours because WalkIn Clinic may have delays due to patient volume or symptom acuity. Insurance verified as active. Multiple (2) protocols were used on this call. Disposition for Call: Go to Urgent Care Now Protocol Used: Abdominal Pain - Female (Adult) Protocol-Based Disposition: See in Office or Video Visit Today Override (Final) Disposition: Go to Urgent Care Now Override Reason: No appointments available Video visit not offered Positive Triage Question: * Patient wants to be seen * All higher-acuity triage questions were negative Care Advice Discussed: * Reasons To Call Back - You become worse Protocol Used: Rectal Bleeding (Adult) Protocol-Based Disposition: See in Office or Video Visit within 2 Weeks Video visit not offered Positive Triage Question: * Rectal bleeding is minimal (e.g., blood just on toilet paper, a few drops in toilet bowl), and bleeding recurs 3 or more times using Care Advice * All higher-acuity triage questions were negative Care Advice Discussed: * Reasons To Call Back - Bleeding increases in amount - You become worse * Telephone Encounter - Santos Dickerson - 11/27/2024 9:50 AM EST Symptom: Rectal Bleeding Outcome: Schedule a same-day appointment or talk to a nurse or provider today Reason: Just a small amount of blood and patient feels normal (acts normal) The caller accepted this outcome. ( Algerian speaker) documented in this encounter Plan of Treatment Not on file documented as of this encounter Visit Diagnoses Not on filedocumented in this encounter Additional Health Concerns Assessment Noted Time PHQ-9 Depression Total Score: 6 11/21/19 9:42 AM EST documented as of this encounter Care Teams Restaurant Recruiter Relationship Specialty Start Date End Date Meaghan Bhat DO [address] [place] [phone] PCP - General Family Medicine 02/18/20 Ab Montes Provider Network ManagerBlack Off Worker 11/26/24 documented as of this encounter
--- OUTSIDE RECORDS SUMMARY | 2024-11-27 21:26 | XMS_ITS | Encounter Summary ---
Author Organization [employer] Address [address] [place] [address] Care Team Providers Care Grain Blender Name Role Phone Meaghan Bhat DO Primary Care Provider + [phone] Encounter Details Date Type Department Care Team (Late st Contact Info) Description 05/14/2024 Orders Only [facility] [address] [place], [place] [phone] ProviderDeb MD Social History Tobacco Use Types Packs/Day Years Used Date Smoking Tobacco: Never Passive Smoke Exposure: Never Smokeless Tobacco: Never Depression Answer Date Recorded Patient Health Questionnaire-9 Score 2 11/16/2023 Patient Health Questionnaire-9 Score 2 11/16/2023 Last PHQ-9: Questionnaire Data Not on file 0 11/16/2023 Housing Stability Answer Date Recorded What is your housing situation today? I have osmanvandana cartagena 08/19/[address] you [...] t he electric, gas, oil or water [employer] threatened to shut off services in your [...] ? [address] ?[place] [address] ?XRay Report ? Signed ? Patient: Viry Bryant ?M ?? R#: [id number] ? : 1970 ?Acct:[id number] ? Age/Sex: 53 / F ?ADM Date: 05/23/24 ? Loc: HO.HOSX ? Attending Dr: Melissa Leyva PA-C ? Ordering Physician: Melissa Leyva PA-C ?? Date of Service: 05/23/24 ?? Procedure(s): XR knee RT 1V ?? Accession Number(s): [id number] ? cc: Meaghan Bhat DO; Melissa Leyva [...] MD in OV> ?06/11/24 1701 ? DD/ 1003 ? TD/TT: ? Address Change Clerk: BEN ? Procedure Note Donmiguel a, Image - 06/11/2024 [facility] [address] [place] [address] Drive [address] [place] [address] XRay Report Signed Patient: Keegan Bryant R#: [id number] : 1970Acct:[id number] Age/Sex: 53 / FADM Date: 05/23/24 Loc: [facility]ALIST[facility]OT[facility] Attending Dr: Melissa Leyva PA-C Ordering Physician: Melissa Leyva PA-C Date of Service: 05/23/24 Procedure(s): XR knee RT 1V Accession Number(s): [id number] cc: Meaghan Bhat DO; Melissa Leyva PA-C [...] in OV> 06/11/24 1701 DD/ 1003 TD/TT: Address Change Clerk: BEN [facility] External Provider IMG XR PROCEDURES Final Result documented in this encounter Visit Diagnoses Not on filedocumented in this encounter Additional Health Concerns Assessment Noted Time PHQ-9 Depression Total Score: 2 11/16/19 10:21 AM EST documented as of this encounter Care Teams Grain Blender Relationship Specialty Start Date End Date Meaghan Bhat DO [address] [place] [address] PCP - General Family Medicine 02/18/20 Ab Montes English DrawerSpecial Police 11/26/24 documented as of this encounter
--- OUTSIDE RECORDS SUMMARY | 2024-11-27 21:26 | XMS_ITS | Encounter Summary ---
Author Organization [employer] Address [address] 7t [place] [address] Care Team Providers Care Crown Assembly Machine Set Up Mechanic Name Role Phone Meaghan Bhat DO Primary Care Provider + [phone] Reason for Visit * Reason Comments Pre-visit Planning SDOH screening negat david and tobacco screening negative Encounter Details Date Type Department Care Team (Late st Contact Info) Description 11/09/2024 Patient Outreach [facility] [address] [place], [place] [phone] Meaghan Bhat DO [address] [place], [place] [phone] Pre-visit Planning (SDOH screening negative and tobacco [...] Dolores Campbell - 11/09/2024 9:18 AM EST ALEXUS Bernal placed successful outbound call to patient for [...] documented as of this encounter Care Teams Crown Assembly Machine Set Up Mechanic Relationship Specialty Start Date End Date Meaghan Bhat DO [address] [place] [address] PCP - General Family Medicine 02/18/20 documented as of this encounter
[2024-11-27 22:37] VITALS: BP 122/58; PULSE 71; RESP 16; TEMP 36; O2SAT 94
[2024-11-28] MEDS: iohexoL 350 MG/ML 100 ML INFUS..BTL 85 ML IV (00:17)
[2024-11-28 02:10] VITALS: BP 122/58; PULSE 71; RESP 16; TEMP 36; O2SAT 94
== END 2024-11-28 02:11 | disposition home or self-care (01) ==
PROVIDERS: Physician Assistant Medical; Emergency Provider Internal Medicine; PCP Family Medicine
DX: K57.32 Diverticulitis of large intestine without perforation or abscess without bleeding (principal); R10.2 Pelvic and perineal pain; Z79.899 Other long term (current) drug therapy
CPT/HCPCS: 36415; 74177; 80053; 83690; 83735; 85025; 99283; 99284; Q9967

== ENCOUNTER → 2024-11-28 | Outpatient (BNV) | payer MEDICAID, SELFPAY | PROVIDERS: Emergency Provider Internal Medicine; PCP Family Medicine; Visit Provider Radiology Neuroradiology | DX: R10.31 Right lower quadrant pain (principal) | CPT/HCPCS: 74177 ==

== ENCOUNTER 2024-12-05 14:25 | Outpatient (REF) | payer MEDICAID, SELFPAY ==
--- NOTE | ~2024-12-05 | US_ITS ---
CLINICAL HISTORY: f u renal stones US Renal Comparison: CT/SR - CT ABDOMEN PELVIS W IV CON - 11/28/24 00:07 EST Findings: Right kidney measures 10.5 x 5.3 x 5.0 cm in size. Echogenic stones within the right kidney measuring up to 7 mm in size. No hydronephrosis. Left kidney measures 11.2 x 5.4 x 4.4 cm in size. Left kidney is of normal echotexture without focal lesion, nephrolithiasis, hydronephrosis. IMPRESSION: Nonobstructing right renal calculi. This document has been electronically signed by: Kenneth Walsh MD on 12/06/2024 09:20:00
--- OUTSIDE RECORDS SUMMARY | 2024-12-05 15:41 | XMS_ITS | Encounter Summary ---
Author Organization [employer] Address [address] [place] [address] Care Team Providers Care Church Supervisor Name Role Phone Meaghan Bhat DO Primary Care Provider + [phone] Reason for Visit * Reason Onset Date Comments Breast US order 11/07/2024 Encounter Details Date Type Department Care Team (Late st Contact Info) Description 11/07/2024 Telephone [facility] MEDICINE [address] [place], [place] [phone] Celina Brito, JONATHAN [address] [place] [address] Breast US order Social History Tobacco Use [...] EST RN received breast US order from [facility] for 05/06/25 at 8am. PCP has signed and RN has faxed to [phone], confirmation page recieved. documented in this encounter Plan of Treatment Upcoming Encounters Date Type Department Care Team (Late st Contact Info) Description 12/07/2024 9:30 AM EST Office Visit [facility] MEDICINE [address] [place] [address] Ailin Parker NP [address] [place] [address] documented as of this encounter Visit Diagnoses Not on filedocumented in this encounter Additional Health Concerns Assessment Noted Time PHQ-9 Depression Total Score: 2 11/16/19 24 10:21 AM EST documented as of this encounter Care Teams Church Supervisor Relationship Specialty Start Date End Date Meaghan Bhat DO [address] [place] [address] PCP - General Family Medicine 02/18/20 documented as of this encounter
--- OUTSIDE RECORDS SUMMARY | 2024-12-05 15:41 | XMS_ITS | Encounter Summary ---
Author Organization [employer] Address [address] [place] [address] Care Team Providers Care Mangle Tender Name Role Phone Meaghan Bhat DO Primary Care Provider + [phone] Reason for Visit * Reason Onset Date Comments Nurse Triage 12/05/2024 Encounter Details Date Type Department Care Team (Late st Contact Info) Description 12/05/2024 Telephone [facility] MEDICINE [address] [place], [place] [phone] Meaghan Bhat DO [address] [place], [place] [phone] Nurse Triage Social History Tobacco Use Types [...] encounter Miscellaneous Notes * Telephone Encounter - Jacklyn Caal RN - 12/05/2024 11:10 AM EST No special forces engineer sergeant needed as this advertising copy writer speaks Chinese. Reports having lower abodminal pain x 1 week. Per pt seen at [facility] ER for abdominal pain. Pt given dx of diverticulitis. Pt has one day left of augmetnin . Onset of pain again x yesterday. Denies any vomiting or fever. Mild nausea and diarrhea. No bloody stools. Mucus in stool. Pt offered appt today with Kenneth horner. Unable due to conflict with US appt. Agrees to appt with kenneth team provider on Tuesday Reviewed home care advise, ER precautions marnie to call back. Protocol Used: Diarrhea on Antibiotics (Adult) Protocol-Based Disposition: See in Office or Video Visit Today Override (Final) Disposition: See in Office or Video Visit within 3 Days Override Reason: Already seen and questions Future Appointments Date Time Provider Department Center 12/07/2024 9:30 AM Ailin Parker NP MEDICINE [facility] Unable to verify insurance. MIIS not working. Positive Triage Question: * Abdominal pain (Exception: Mild cramping that clears with each passage of diarrhea stool.) * All higher-acuity triage questions were negative Care Advice Discussed: * Reassurance and Education - Diarrhea While Taking an Antibiotic * Fluid Therapy During Mild to Moderate Diarrhea * Food and Nutrition During Mild to Moderate Diarrhea * Reasons To Call Back - Signs of dehydration occur (such as no urine over 12 hours, very dry mouth, lightheaded) - You become worse * Telephone Encounter - Ibeth Jose Louie - 12/05/2024 10:27 AM EST Symptom: Abdominal Pain - Female - Not Outcome: Schedule an appointment to be seen within 24 hours Reason: Caller denied all higher acuity questions The caller accepted this outcome. [phone] ([email or web address]) documented in this encounter Plan of Treatment Upcoming Encounters Date Type Department Care Team (Late st Contact Info) Description 12/07/2024 9:30 AM EST Office Visit [facility] MEDICINE [address] [place] [address] Ailin Parker NP [address] [place] [address] documented as of this encounter Visit Diagnoses Not on filedocumented in this encounter Additional Health Concerns Assessment Noted Time PHQ-9 Depression Total Score: 6 11/21/19 9:42 AM EST documented as of this encounter Care Teams Mangle Tender Relationship Specialty Start Date End Date Meaghan Bhat DO [address] [place] [address] PCP - General Family Medicine 02/18/20 Ab Montes Grocery ShopperFire Alarm Operator 11/26/24 documented as of this encounter
--- OUTSIDE RECORDS SUMMARY | 2024-12-05 15:41 | XMS_ITS | Encounter Summary ---
Author Organization [employer] Address [address] [place] [address] Care Team Providers Care Occup Ther Name Role Phone Meaghan Bhat DO Primary Care Provider + [phone] Encounter Details Date Type Department Care Team ([facility] st Contact Info) Description 12/03/2024 Telephone [facility] MEDICINE [address] [place], [place] [phone] Caitlin Roca, JONATHAN [address] [place] [address] Social History Tobacco Use Types Packs/Day Years [...] encounter Miscellaneous Notes * Telephone Encounter - Caitlin Roca RN - 12/03/2024 10:10 AM EST Pt evaluated in [facility] ED 11/27/24 Dx: Diverticulitis. Pt was discharged home in stable condition with recommendation for clear liquid diet x 2-3 days and to take antibiotics rx in ED if pain worsens. T/Engineering Illustrator pt for status check via S Activity Assistant #[id number]. No answer, v/m left to return call to Red team nurses. documented in this encounter Plan of Treatment Upcoming Encounters Date Type Department Care Team (Late st Contact Info) Description 12/07/2024 9:30 AM EST Office Visit [facility] MEDICINE [address] [place] [address] Ailin Parker NP [address] [place] [address] documented as of this encounter Visit Diagnoses Not on filedocumented in this encounter Additional Health Concerns Assessment Noted Time PHQ-9 Depression Total Score: 6 11/21/19 9:42 AM EST documented as of this encounter Care Teams Occup Ther Relationship Specialty Start Date End Date Meaghan Bhat DO [address] [place] [address] PCP - General Family Medicine 02/18/20 Ab Montes BrainerCar Packer 11/26/24 documented as of this encounter
--- OUTSIDE RECORDS SUMMARY | 2024-12-05 15:41 | XMS_ITS | Clinical Summary ---
Author Organization [facility] Address [address] [place] [address] Care Team Providers Care Gear Repairer Name Role Phone Unavailable Primary Care Provider Unavailabl e Surgical History Surgery Date Site/Laterality Comments TUBAL LIGATION PROCEDURE: HISTORICAL TUBAL LIGATION HERNIA REPAIR PROCEDURE: HISTORICAL HERNIA REPAIR/ING OTHER SURGICAL HISTORY PROCEDURE: [place] UNLISTED PX MECKEL'S DIVERTICULUM & MESENTERY OTHER SURGICAL HISTORY PROCEDURE: [place] RENAL NDSC NEPHROTOMY W/WO IRRIGATION SECTION PROCEDURE: HISTORICAL DELIVERY HYSTEROSCOPY 09/2019 PROCEDURE: [place] HYSTEROSCOPY BX ENDOMETRIUM&/POLYPC W/WO D&C; COMMENT: with [...] drink = 0.6 oz pur e alcohol) Comments Unknown Sex and Gender Information Value Date Recorded Sex Assigned at Not on file Legal Sex Female 7:32 PM EST Gender Identity Not on file Sexual Orientation [...] AM EDT Narrative 04/11/2019 1:28 PM EDT [facility] Diagnostic Imaging Department [address] [place] [address] Patient: ??VIRY DODGE ?/Age/Sex: 1970 - 48 - F Unit#: ??[id number] ? Location/Status: ??SPDIMAM/REG CLI ? Mnemonic/Ordering Site: ??DIGSC/SPMAM Ordering Physician: ??CONCEPCIÓN YEH CNM Deirdre Screening Digital - 04/11/19 - 1041 EXAM: [facility] Screening Digital EXAM DATE AND TIME: 04/11/2019 10:44 AM HISTORY: ??Screening. COMPARISON: ??Previous exams performed in [place] in 2013 are not available per the patient. TECHNIQUE: CC and MLO views of both breasts were obtained using full field digital mammography. Bilateral digital breast tomosynthesis was performed in the MLO projection. Computer aided detection with the D square nv 7.2-H was employed. TISSUE DENSITY: c. The [...] Routine screening mammogram BILATERAL in 1 year. 25636, 94825 3341F, 7025F Dictating Physician: ??BERNICE BOYD MD Electronically Signed by: ??BERNICE BOYD MD Dic Date/Time: ??04/11/19 1327 Sign date/Time: ??04/11/19 1328 Procedure Note Bernice Boyd - 10/12/2022 [facility] Diagnostic Imaging Department [address] [place] [address] Patient: ALAINA JOHNSONVIRY D.O.B./Age/Sex: 1970 - 48- F Unit#: [id number] Location/Status: SPDIMAM/REG CLI Mnemonic/Ordering Site: [facility] Ordering Physician: CONCEPCIÓN YEH CNM [facility] Screening Digital - 04/11/19 - 1042 EXAM: [facility] Screening Digital EXAM DATE AND TIME: 04/11/2019 10:44 AM HISTORY: Screening. COMPARISON: Previous exams performed in [place] in 2013 are notavailable per the patient. TECHNIQUE: CC and MLO views of both breasts were obtained using fullfield digital mammography. Bilateral digital breast tomosynthesis was performedin the MLO projection. Computer aided detection with the D square nv 7.2-Hwas employed. TISSUE DENSITY: c. The breasts [...] Routine screening mammogram BILATERAL in 1 year. 47494, 11454 3341F, 7052F Dictating Physician: BERNICE BOYD MD Electronically Signed by: BERNICE BOYD MD Dic Date/Time: 04/11/19 1327 Sign date/Time: 04/11/19 1328 Concepción Yeh CNM IMG BI PROCEDURES Final Resul t * Pap smear (03/30/2019) 03/30/2019 Narrative HISTORICAL TESTING LAB RESULTING AGENCY - 04/04/2019 4:21 PM EDT [id number] THINPREP PAP, IMAGED: NEGATIVE FOR SQUAMOUS INTRAEPITHELIAL [...] LMP 03/18/19, NEG HC PER [place] IN [place], Z12.4 Concepción Yeh CNM LAB CYTOLOGY ORDERABLES Final Result HISTORICAL TESTING LAB RESULTING AGENCY from Last 3 Months or Most Recently Relevant to Health Maintenance
--- OUTSIDE RECORDS SUMMARY | 2024-12-05 15:41 | XMS_ITS | Encounter Summary ---
Author Organization [employer] Address [address] [facility] [address] [place] [address] Care Team Providers Care Production Line Name Role Phone Meaghan Bhat DO Primary Care Provider + [phone] Reason for Visit * Reason Comments Pre-visit Planning SDOH screening negat david and tobacco screening negative Encounter Details Date Type Department Care Team (Late st Contact Info) Description 11/09/2024 Patient Outreach [facility] MEDICINE [address] [place], [place] [phone] Meaghan Bhat DO [address] [place], [place] [phone] Pre-visit Planning (SDOH screening negative and tobacco [...] Description 12/07/2024 9:30 AM EST Office Visit [facility] MEDICINE [address] [place] [address] Ailin Parker NP [address] [place] [address] documented as of this encounter Visit Diagnoses Not on filedocumented in this encounter Additional Health Concerns Assessment Noted Time PHQ-9 Depression Total Score: 2 11/16/19 24 10:21 AM EST documented as of this encounter Care Teams Production Line Relationship Specialty Start Date End Date Meaghan Bhat DO [address] [place] [address] PCP - General Family Medicine 02/18/20 documented as of this encounter
--- OUTSIDE RECORDS SUMMARY | 2024-12-05 15:41 | XMS_ITS | Encounter Summary ---
Author Organization [employer] Address [address] [place] [address] Care Team Providers Care Order Selector Name Role Phone Meaghan Bhat DO Primary Care Provider + [phone] Reason for Visit * Reason Onset Date Comments Nurse Triage 11/27/2024 Encounter Details Date Type Department Care Team (Late st Contact Info) Description 11/27/2024 Telephone [facility] MEDICINE [address] [place], [place] [phone] Meaghan Bhat DO [address] [place], [place] [phone] Nurse Triage Social History Tobacco Use Types [...] Notes * Telephone Encounter - Pratima Arrieta, JOINERY FACTORY WORKER - 11/27/2024 10:59 AM EST Triage call returned with BLS #[id number] Vel. Patient reports that she had lower [...] Team appts. Available at time of call. [facility] Walk In [facility] hours and availability [...] normal) The caller accepted this outcome. ( Slovenian speaker) documented in this encounter Plan of Treatment Upcoming Encounters Date Type Department Care Team (Late st Contact Info) Description 12/07/2024 9:30 AM EST Office Visit [facility] MEDICINE [address] [place] [address] Ailin Parker NP [address] [place] [address] documented as of this encounter Visit Diagnoses Not on filedocumented in this encounter Additional Health Concerns Assessment Noted Time PHQ-9 Depression Total Score: 6 11/21/19 9:42 AM EST documented as of this encounter Care Teams Order Selector Relationship Specialty Start Date End Date Meaghan Bhat DO [address] [place] [address] PCP - General Family Medicine 02/18/20 Ab Montes Rehab Department ManagerFunding Specialist 11/26/24 documented as of this encounter
--- OUTSIDE RECORDS SUMMARY | 2024-12-05 15:41 | XMS_ITS | Clinical Summary ---
Author Organization [employer] Address [address] [place] [address] Care Team Providers Care Supervisor Diagnostic Name Role Phone Perlita Meaghan Primary Care Provider + [phone] Allergies No known active allergies Medications * [...] having panic attacks. Education provided around contacting [facility] centers to receive immediate support. clinician [...] organization. Date Type Department Care Team Description 12/05/2024 Telephone [facility] [address] [place] [phone] Meaghan Bhat DO Nurse Triage 12/03/2024 Telephone [facility] [address] [place] [address] Caitlin Roca, JONATHAN 11/30/2024 Telephone [facility] [address] [place] [address] Celina Brito, RN Results 11/28/2024 Patient Outreach [facility] [address] [place] [address] Meaghan Bhat DO Transition Of Care (Tcm) 11/27/2024 5:20 PM EST Office Visit [facility] [address] [place] [phone] Renetta Frey MD RLQ abdominal pain (Primary Dx); Colon cancer screening 11/27/2024 Orders Only GENERIC EXTERNAL DATA DEPARTMENT Provider, Generic External Data 11/27/2024 Travel 11/27/[address] [address] Meaghan Bhat DO Nurse Triage 11/26/2024 Telephone [facility] [address] [place] [address] Meaghan Bhat DO Care Coordination (ICP Care Plan ) 11/26/2024 Patient Outreach [facility] [address] [place] [address] Meaghan Bhat DO 11/21/2024 9:30 AM EST Office Visit [address] [address] Meaghan Bhat DO Routine history and physical examination of adult (Primary Dx); Panic disorder; Mild intermittent asthma without complication; Nephrolithiasis; Bilateral carpal tunnel syndrome; Chronic bilateral low back pain with sciatica, sciatica laterality unspecified; Chronic pain of right knee; Chronic GERD; Skin lesions; Sleep-disordered breathing; Abnormal mammogram of left breast; BMI 38.0-38.9,adult; Dietary counseling; Exercise counseling 11/21/2024 Travel 11/09/2024 Patient Outreach [address] [address] Meaghan Bhat DO Pre-visit Planning (SDOH screening negative and tobacco screening negative) 11/07/[address] [address] Celina Brito, JONATHAN Breast US order 11/06/2024 Orders Only [address] [address] Deb Rasmussen MD 10/29/[address] [address] Celina Brito RN [facility] breast order 09/06/2024 9:45 AM EST Office Visit [facility] [address] [place] [address] Valarie Sinha, OD Presbyopia (Primary Dx) from Last 3 [...] 11/27/2024 5:00 PM EST Plan of Treatment Upcoming Encounters Date Type Department Care Team (Late st Contact Info) Description 12/07/2024 9:30 AM EST Office Visit [facility] [address] [place] [address] Ailin Parker NP [address] [place] [address] Health Maintenance Due Date Last Done Comments [...] 11/09/2025 11/09/2024 Depression Screening 11/21/2025 11/21/2024, 11/21/19 Diabetes: Hemoglobin A1C 11/21/2025 11/21/2024, 03/2023 Tobacco Screening 11/27/2025 11/27/2024 Cervical Cancer Screening 10/07/2026 Pap Smear 10/07/2026 10/07/2023, 03/30/2019 HPV/Cotest 10/07/2028 10/07/2023, 03/30/2019 Lipid Panel 11/21/2029 11/21/2024, 08/29/2023 DTaP/Tdap/Td Vaccines (2 - Td or Tdap) [...] Procedure Name Priority Date/Time Associated Diagnosis Comments CT ABDOMEN PELVIS W CONTRAST Routine 11/28/2024 12:47 AM EST LIPASE Routine 11/27/2024 6:44 PM EST MAGNESIUM [...] Recently Relevant to Health Maintenance Results * CT Abdomen Pelvis w/ Contrast (11/28/2024 12:47 AM EST) Anatomical Region Laterality Modality Body, Pelvis, Abdomen Computed T omography 11/28/2024 12:4 7 AM EST Narrative 11/28/2024 12:48 AM EST ? [facility] ?[address] ?[place] [address] ? CT Scan Report ? Signed ? Patient: Viry Bryant ?M ?? R#: [id number] ? : 1970 ?Acct:[id number] ? Age/Sex: 54 / F ?ADM Date: 11/27/24 ? Loc: HO.ED ? Attending Dr: ? Ordering Physician: Keith Lechuga ?? Date of Service: 11/28/24 ?? Procedure(s): CT abdomen pelvis w IV con ?? Accession Number(s): [id number] ? cc: Meaghan Bhat DO; Keith Lechuga ? Report Number: ?? [id number]: Total DLP = ??734.00 mGy-cm ? CLINICAL HISTORY: RLQ pain ? CT abdomen and pelvis with contrast ? Comparison: CT of the abdomen and pelvis from 03/31/2020 ? Findings: ?? No consolidation of the imaged lung bases. ?? The gallbladder is surgically absent. Redemonstration of the steatotic ?? changes of the liver. Spleen remains at the upper limits of normal. The ?? adrenal glands are normal. Mild volume loss of the pancreas is noted. No ?? significant change in right-sided calcifications including 0.7 cm ?? nephrolithiasis. No hydronephrosis at this time. ?? Small mesenteric lymph nodes are likely reactive. No small bowel ?? obstruction. The appendix is within normal limits. Moderate to severe ?? stool burden is present, including the cecum. Acute inflammatory stranding ?? adjacent to the sigmoid colon with acute diverticulitis and multiple ?? diverticula. No free intraperitoneal air. No well-formed or drainable ?? abscess by CT. ?? Mild-moderate wall thickening of the urinary bladder is nonspecific and ?? may reflect cystitis. The uterus is anteverted. No adnexal soft tissue ?? mass by CT. ?? Degenerative changes include lower lumbar facet arthropathy. Mild pelvis ?? deformities appear old chronic including osteophytes from iliac wings. ?? Previous procedure changes with ventral mesh opacities. ? IMPRESSION: ?? 1. Acute diverticulitis involving the sigmoid colon. No perforation or ?? abscess formation. ?? 2. Nonobstructing right-sided nephrolithiasis. ? This document has been electronically signed by: Yordy Crum MD on ?? 11/28/2024 00:47:16 ? Dictated By: ?Yordy Crum MD ? Signed By: ?<Electronically signed by Yordy Crum MD in OV> ? 11/28/24 0048 ? DD/ 004 ? TD/TT: 11/28/24 004 ? Service Provider: ? Procedure Note Donotkarlainterpreter, Image - 11/28/[address] [place] [address] [address] Scan Report Signed Patient: Keegan Bryant R#: [id number] : 1970Acct:[id number] Age/Sex: 54 / FADM Date: 11/27/24 Loc: HO.ED Attending Dr: Ordering Physician: Keith Lechuga Date of Service: 11/28/24 Procedure(s): CT abdomen pelvis w IV con Accession Number(s): [id number] cc: Meaghan Bhat DO; Keith Lechuga Report Number: [id number]: Total DLP = 734.00 mGy-cm CLINICAL HISTORY: RLQ pain CT abdomen and pelvis with contrast Comparison: CT of the abdomen and pelvis from 03/31/2020 Findings: No consolidation of the imaged lung bases. The gallbladder is surgically absent. Redemonstration of the steatotic changes of the liver. Spleen remains at the upper limits of normal. The adrenal glands are normal. Mild volume loss of the pancreas is noted. No significant change in right-sided calcifications including 0.7 cm nephrolithiasis. No hydronephrosis at this time. Small mesenteric lymph nodes are likely reactive. No small bowel obstruction. The appendix is within normal limits. Moderate to severe stool burden is present, including the cecum. Acute inflammatory stranding adjacent to the sigmoid colon with acute diverticulitis and multiple diverticula. No free intraperitoneal air. No well-formed or drainable abscess by CT. Mild-moderate wall thickening of the urinary bladder is nonspecific and may reflect cystitis. The uterus is anteverted. No adnexal soft tissue mass by CT. Degenerative changes include lower lumbar facet arthropathy. Mild pelvis deformities appear old chronic including osteophytes from iliac wings. Previous procedure changes with ventral mesh opacities. IMPRESSION: 1. Acute diverticulitis involving the sigmoid colon. No perforation or abscess formation. 2. Nonobstructing right-sided nephrolithiasis. This document has been electronically signed by: Yordy Crum MD on 11/28/2024 00:47:16 Dictated By: Yordy Crum MD Signed By: <Electronically signed by Yordy Crum MD in OV> 11/28/2447 DD/ TD/TT: 11/28/2446 Service Provider: [facility] External Provider IMG CT PROCEDURES Edited Result - Final * (ABNORMAL) CBC auto differential (11/27/2024 6:44 PM EST) White Blood Count 11.9(H) 4.8 - 10.8 X10*3/uL [facility] Red Blood Count 4.68 4.20 - 5.50 X10*6/uL [facility] Hemoglobin 13.0 12.0 - 16.0 g/dl [facility] Hematocrit 39.6 37.0 - 47.0 % [facility] Mean Corpuscular Volume 84.6 80.0 - 98.0 fL [facility] Mean Corpuscular Hemoglobin 27.8 27.0 - 33.0 pg [facility] Mean Corpuscular HGB Conc 32.8 31.0 - 35.0 g/dl [facility] Red Cell Distribution Width 13.8 11.0 - 16.0 % [facility] Platelet Count 358 160 - 400 X10*3/uL [facility] Mean Platelet Volume 8.6(L) 9.4 - 12.3 fL [facility] Neutrophils Percent Auto 61.0 45 - 73 % [facility] Imm Gran Pct Auto 0.3 0.0 - 0.4 % [facility] Lymphocytes Percent Auto 28.4 20 - 40 % [facility] Monocytes Percent Auto 7.7 2 - 11 % [facility] Eosinophils Percent Auto 2.0 0 - 4 % [facility] Basophils Percent Auto 0.6 0 - 2 % [facility] NRBC Pct Auto 0.0 0.0 - 0.2 /100WBC [facility] Neutrophils Absolute Auto 7.3 2.0 - 8.3 x10*3/uL [facility] Imm Gran Abs Auto 0.04(H) 0.00 - 0.03 X10*3/uL [facility] Lymphocytes Absolute Auto 3.4 1.2 - 4.9 X10*3/uL [facility] Monocytes Absolute Auto 0.9 0.1 - 1.2 X10*3/uL [facility] Eosinophils Absolute Auto 0.2 0.0 - 0.4 X10*3/uL [facility] Basophils Absolute Auto 0.1 0.0 - 0.2 X10*3/uL [facility] NRBC Abs Auto 0.000 0.0 - 0.012 X10*3/uL [facility] 11/27/2024 6:44 PM EST 11/27/2024 6:46 PM EST us Generic External Data Provider LAB BLOOD ORDERAB LES Final Result Performing Organization Address [facility]/ZIP Co de Phone Number [facility] [address] [place] [phone] * Magnesium (11/27/2024 6:44 PM EST) Magnesium 2.1 1.6 - 2.6 mg/dL [facility] 11/27/2024 6:44 PM EST 11/27/2024 6:46 PM EST Generic External Data Provider LAB BLOOD ORDERAB LES Final Result Performing Organization Address City/[facility]/ZIP Co de Phone Number [facility] [address] [place] [address] [phone] * Lipase (11/27/2024 6:44 PM EST) Lipase 31 8 - 78 U/L [facility] 11/27/2024 6:44 PM EST 11/27/2024 6:46 PM EST us Generic External Data Provider LAB BLOOD ORDERAB LES Final Result [facility] [address] [place] [address] [phone] * Comprehensive Metabolic Panel (11/27/2024 6:44 PM EST) Sodium 143 135 - 145 mmol/L [facility] Potassium 4.2 3.3 - 5.1 mmol/L [facility] Chloride 105 96 - 108 mmol/L [facility] Carbon Dioxide 27 22 - 29 mmol/L [facility] Anion Gap 15 12 - 20 [facility] Urea Nitrogen (BUN) 11 9 - 16 mg/dL [facility] Creatinine, Serum 0.73 0.5 - 1.4 mg/dL [facility] Creatinine Clr Calc Pharmacy 90.0 [facility] Comment:Provided height and weight: 154.94 cm,92.079 kg.eGFR (calculated from the MDRD study equation) and eCrCl(calculated from the Cockcroft-Gault equation) are based ondifferent parameters and may not yield comparable results.If eCrCl result is absurd, please check patient'sheight/weight. Estimated Glomerular Filt Rate >60 [facility] Comment:Chronic Kidney Disea se: Estimated GFR < 60 mL/min/1.50c8Fiibtz Kidney Disease: Estimated GFR < 15 mL/min/1.73m2 Glucose 88 60 - 115 mg/dL [facility] Calcium 9.3 8.4 - 10.2 mg/dL [facility] Bilirubin, Total 0.4 0.0 - 1.0 mg/dL [facility] Aspartate Amino Transferase 17 5 - 31 U/L [facility] Alanine Aminotransferase 22 0 - 31 U/L [facility] Total Protein 7.9 6.5 - 8.0 g/dL [facility] Albumin Level 4.2 3.5 - 5.0 g/dL [facility] Alkaline Phosphatase 94 39 - 117 U/L [facility] 11/27/2024 6:44 PM EST 11/27/2024 6:46 PM EST us Generic External Data Provider LAB BLOOD ORDERAB LES Final Result Performing Organization Address [facility] Co de Phone Number [facility] [address] [place] [address] [phone] * Vitamin D, 25-Hydroxy, Total, Immunoassay (11/21/2024 11:33 AM EST) Vitamin D 25-OH Total 30.3 >30 ng/mL [facility] Comment:Health Based Referen ce Values*< 20 ng/mL Wnelfosoi15-90 ng/mL Insufficient> 30 ng/mL Sufficient*Ara CUETO. N [...] ORDERABLES Final R esult Performing Organization Address [facility]/ZIP Co de Phone Number [facility] [address] [place] [address] [phone] * T-SPOT??.TB (11/21/2024 11:33 AM EST) T Spot TB Negative Negative [facility] Comment:A negative test resu lt [...] as aquantitative test. TS PANEL A 0 [facility] TS PANEL B 0 [facility] Negative Control Passed [facility] Positive Control Passed [facility] Comment:For additional infor mation, please refer tohttp://education.Indelsul/faq/FRX094(This link is being provided for informational/educational purposes only.)THIS TEST WAS PERFORMED AT:[employer] [id number] [place] [address]TILCRIRRAMÍREZ CROWLEY MD,PHD 11/21/2024 11:3 3 AM EST 11/21/2024 1:40 PM EST us Meaghan Bhat DO LAB BLOOD ORDERABLES Final R esult [facility] [address] [place] [phone] * Hepatitis C Antibody with Reflex to HCV, RNA, Quantitative, Real-Time PCR (11/21/2024 11:33 AM EST) Pathologist [facility] Hepatitis C Antibody Nonreactive Nonreactive [facility] Comment:Antibodies to HCV no t detected; does not exclude early acuteHCV infection. Blood Venous blood specimen / Unknown 11/21/2024 11:33 AM EST 11/21/2024 1:40 PM EST Meaghan Bhat LAB BLOOD ORDERABLES Final R esult Performing Organization Address [facility]/ZIP Co de Phone Number [facility] [address] [place] [phone] * Hepatitis A Antibody, Total (11/21/2024 11:33 AM EST) Hepatitis A Antibody IgG Nonreactive Nonreactive [facility] Blood Venous blood specimen / Unknown 11/21/2024 11:33 AM EST 11/21/2024 1:40 PM EST Meaghan Bhat LAB BLOOD ORDERABLES Final R esult Performing Organization Address [facility] Co de Phone Number [facility] [address] [place] [phone] * Chlamydia/N. Gonorrhoeae RNA, TMA, Urogenitial (11/21/2024 11:33 AM EST) CT PCR NOT DETECTED Not Detect. [facility] Comment:A not detected test result [...] psychologicalconsequences. NG PCR NOT DETECTED Not Detect. [facility] Comment:A not detected test result [...] AM EST 11/21/2024 1:24 PM EST Narrative [facility] - 11/21/2024 5:08 PM EST Urine Meaghan Bhat DO LAB MICROBIOLOGY - GENERAL O RDERABLES Final Result Performing Organization Address City/[facility]/ZIP Co de Phone Number [facility] [address] [place] [phone] * Hepatitis B surface antigen, EIA (11/21/2024 11:33 AM EST) Hepatitis B Surface Ag Negative Negative [facility] Blood Venous blood specimen / Unknown 11/21/2024 11:33 AM EST 11/21/2024 1:40 PM EST Meaghan Bhat DO LAB BLOOD ORDERABLES Final R esult Performing Organization Address City/[facility]/ZIP Co de Phone Number [facility] [address] [place] [phone] * Hepatitis B Core Antibody, Total (11/21/2024 11:33 AM EST) Hepatitis B Core Antibody Nonreactive Nonreactive [facility] Blood Venous blood specimen / Unknown 11/21/2024 11:33 AM EST 11/21/2024 1:40 PM EST Meaghan Bhat DO LAB BLOOD ORDERABLES Final R esult Performing Organization Address City/[facility]/ZIP Co de Phone Number [facility] [address] [place] [phone] * RPR (Monitor) with Reflex to??Titer (11/21/2024 11:33 AM EST) RPR (Monitor) w/Refl Titer NON-REACTI VE NON-REACT MARISELA [facility] Comment:THIS TEST WAS PERFOR MED AT:[employer] [place] [id number] DELEON MD Rapid Plasma Reagin Ab Titer TNP [facility] Blood Venous blood specimen / Unknown 11/21/2024 11:33 AM EST 11/21/2024 1:40 PM EST Meaghan Bhat DO LAB BLOOD ORDERABLES Final R esult Performing Organization Address [facility] Co de Phone Number [facility] [address] [place] [phone] * HIV-1/2 Antigen and Antibodies, Fourth Generation, with Reflexes (11/21/2024 11:33 AM EST) HIV AB/AG Nonreactive Nonreactive [facility] Comment:HIV-1 p24 Ag and/or HIV-1/HIV-2 Ab not detected.A test result that is nonreactive does not exclude thepossibility of exposure to or infection with HIV-1 and/orHIV-2. Nonreactive results in this assay for individualswith prior exposure to HIV-1 and/or HIV-2 may be due toantigen and antibody levels that are below the limit ofdetection of this assay.The [employer] HIV Ag/Ab Combo assay result andsupplemental assay results should be interpreted inconjunction with the patient's clinical presentation,history and other laboratory results. If the results areinconsistent with clinical evidence, additional testing issuggested to confirm the result. Blood Venous blood specimen / Unknown 11/21/2024 11:33 AM EST 11/21/2024 1:40 PM EST Meaghan Bhat LAB BLOOD ORDERABLES Final R esult Performing Organization Address City/[facility]/ZIP Co de Phone Number [facility] [address] [place] [phone] * Hepatitis B Surface Antibody, Qualitative (11/21/2024 11:33 AM EST) Pathologist [facility] ~Hepatitis B Surface Antibody NONREACTIVE Nonreactive [facility] Comment:Nonreactive: < 8.00 mIU/mL Blood Venous blood specimen / Unknown 11/21/2024 11:33 AM EST 11/21/2024 1:40 PM EST Meaghan Bhat LAB BLOOD ORDERABLES Final R esult Performing Organization Address [facility] Co de Phone Number [facility] [address] [place] [phone] * CBC (11/21/2024 11:33 AM EST) Pathologist [facility] White Blood Count 10.2 4.8 - 10.8 X10*3/uL [facility] Red Blood Count 5.04 4.20 - 5.50 X10*6/uL [facility] Hemoglobin 13.9 12.0 - 16.0 g/dl [facility] Hematocrit 43.4 37.0 - 47.0 % [facility] Mean Corpuscular Volume 86.1 80.0 - 98.0 fL [facility] Mean Corpuscular Hemoglobin 27.6 27.0 - 33.0 pg [facility] Mean Corpuscular HGB Conc 32.0 31.0 - 35.0 g/dl [facility] Red Cell Distribution Width 13.8 11.0 - 16.0 % [facility] Platelet Count 373 160 - 400 X10*3/uL [facility] Mean Platelet Volume 9.5 9.4 - 12.3 fL [facility] NRBC Pct Auto 0.0 0.0 - 0.2 /100WBC [facility] NRBC Abs Auto 0.000 0.0 - 0.012 X10*3/uL [facility] Blood Venous blood specimen / Unknown 11/21/2024 11:33 AM EST 11/21/2024 1:38 PM EST Meaghan Bhat DO LAB BLOOD ORDERABLES Final R esult Performing Organization Address City/[facility]/ZIP Co de Phone Number [facility] [address] [place] [phone] * TSH (11/21/2024 11:33 AM EST) Thyroid Stimulating Hormone 1.85 0.32 - 4.0 uIU/mL [facility] Comment:TSH 3rd Generation ( [facility]) Blood Venous blood specimen / Unknown 11/21/2024 11:33 AM EST 11/21/2024 1:40 PM EST Meaghan Bhat DO LAB BLOOD ORDERABLES Final R esult Performing Organization Address City/[facility]/ZIP Co de Phone Number [facility] [address] [place] [phone] * T4, Free (11/21/2024 11:33 AM EST) Free T4 (Free Thyroxine) 1.04 0.71 - 1.85 ng/dL [facility] Blood Venous blood specimen / Unknown 11/21/2024 11:33 AM EST 11/21/2024 1:40 PM EST Meaghan Bhat DO LAB BLOOD ORDERABLES Final R esult [facility] [address] [place] [phone] * (ABNORMAL) Hemoglobin A1c (11/21/2024 11:33 AM EST) Hemoglobin A1c 6.1(H) <6.0 % [facility] Comment:Hemoglobin A1C Refer ence Range Adults: 4.8 - 6.0 % Non diabetic: < 6.0 % Goal: < 7.0 %Additional Action Suggested: > 8.0 %Note: Hemoglobin A1c results are invalid for patients with abnormal amounts of HbF. Blood transfusions may impact the HbA1c concentration in the patient sample. Estimated Average Glucose 128 mg/dL [facility] Comment:eAG = Estimated ave rage glucose which is %A1C expressed asaverage glucose, using the formula of the E9U-FsvltkiTfcewhg Glucose study (ADAG), Diabetes Care, Vol.31,#8,2007 Blood Venous blood specimen / Unknown 11/21/2024 11:33 AM EST 11/21/2024 1:38 PM EST us Meaghan Bhat DO LAB BLOOD ORDERABLES Final R esult [facility] [address] [place] [phone] * (ABNORMAL) Hepatic Function Panel (11/21/2024 11:33 AM EST) Bilirubin, Total 0.2 0.0 - 1.0 mg/dL [facility] Bilirubin, Direct <0.2 0.0 - 0.5 mg/dL [facility] Aspartate Amino Transferase 22 5 - 31 U/L [facility] Alanine Aminotransferase 27 0 - 31 U/L [facility] Total Protein 8.5(H) 6.5 - 8.0 g/dL [facility] Albumin Level 4.6 3.5 - 5.0 g/dL [facility] Alkaline Phosphatase 95 39 - 117 U/L [facility] Blood Venous blood specimen / Unknown 11/21/2024 11:33 AM EST 11/21/2024 1:40 PM EST Meaghan Bhat DO LAB BLOOD ORDERABLES Final R esult Performing Organization Address [facility] Co de Phone Number [facility] [address] [place] [phone] * (ABNORMAL) Lipid Panel, Standard (11/21/2024 11:33 AM EST) Triglycerides 96 <150 mg/dL [facility] Comment:Desirable Triglyceri de: less than 150 mg/dLBorderline High Triglyceride 150-199 mg/dLHigh Triglyceride: 200-499 mg/dLVery High Triglyceride: greater than or equal to 5OO mg/dL Cholesterol 222(H) <200 mg/dL [facility] Comment:Desirable Cholestero l: less than 200 mg/dLBorderline High Cholesterol: 200-239 mg/dLHigh Cholesterol: greater than 239 mg/dL LDL Cholesterol Calculated 146(H) <100 mg/dL [facility] Comment:Desirable LDL: less than 100 mg/dLNear Optimal/Above Optimal LDL: 110- 129 mg/dLBorderline High LDL: 130-159 mg/dLHigh LDL: 160-189 mg/dLVery High LDL: greater than or equal to 190 mg/dL HDL Cholesterol 57 >40 mg/dL [facility] Comment:Desirable HDL: great er than 40 mg/dL Note: This HDL assay may give artificially low results in patients with liver disease. Blood Venous blood specimen / Unknown 11/21/2024 11:33 AM EST 11/21/2024 1:40 PM EST us Meaghan Bhat DO LAB BLOOD ORDERABLES Final R esult Performing Organization Address City/[facility]/ZIP Co de Phone Number [facility] [address] [place] [phone] * (ABNORMAL) Basic Metabolic Panel (11/21/2024 11:33 AM EST) Sodium 138 135 - 145 mmol/L [facility] Potassium 3.9 3.3 - 5.1 mmol/L [facility] Chloride 105 96 - 108 mmol/L [facility] Carbon Dioxide 26 22 - 29 mmol/L [facility] [facility] Anion Gap 11(L) 12 - 20 [facility] Urea Nitrogen (BUN) 13 9 - 16 mg/dL [facility] Creatinine, Serum 0.66 0.5 - 1.4 mg/dL [facility] Estimated Glomerular Filt Rate >60 [facility] Comment:Chronic Kidney Disea se: Estimated GFR < 60 mL/min/1.39r2Xsutjo Kidney Disease: Estimated GFR < 15 mL/min/1.73m2 Glucose 84 60 - 115 mg/dL [facility] Calcium 10.1 8.4 - 10.2 mg/dL [facility] Blood Venous blood specimen / Unknown 11/21/2024 11:33 AM EST 11/21/2024 1:40 PM EST Meaghan Bhat DO LAB BLOOD ORDERABLES Final R esult [facility] [address] [place], [place] [phone] * Hm Mammography (11/05/2024 11:26 AM EST) Anatomical Region Laterality Modality Other Historical Provider HEALTH MAINTENANCE Final Result * HPV mRNA E6/E7 w/Reflex to HPV Genotypes 16, 18/45 (10/07/2023 1:09 PM EST) HPV nRNA E6/E7 Not Detected Not Detected [facility] Comment:Methodology: Transcr iption-Mediated AmplificationThis assay detects E6/E7 viral messenger RNA (mRNA) from 14high-risk HPV types (16,18,31,33,35,39,45,51,52,56,58,59,66,68).Cervical sources are required for HPV testing.If a vaginal source from a patient who has had atotal hysterectomy with removal of cervix wassubmitted, please contact the testing laboratoryfor alternative testing options.For additional information, please refer [email or web address]/faq/[email or web address](This link if provided for information/educational purposes only.)THIS TEST WAS PERFORMED AT:[employer] [place] [id number] DELEON MD HPV mRNA E6/E7 TNP [facility] HPV 16 RNA TNP [facility] HPV 18/45 [facility] 10/07/2023 1:09 PM EST 10/10/2023 11:30 AM EST us Meaghan Bhat DO LAB CYTOLOGY ORDERABLES Shanita latif Result [facility] [address] [place] [address] [phone] * Pap Smear (10/07/2023 1:09 PM EST) 10/07/2023 1:09 PM EST 10/10/2023 11:30 AM EST Narrative [facility] - 10/19/2023 1:00 PM EST ----- ------- Name: Viry Bryant ? Age/Sex: 52/F ? : 1970 Unit#: [id number] ?? Attend : Meaghan Bhat DO ?Re10/07/23 ?Status: DEP REF ? Location: HO.HHCLNP ? Disch: ? ----- ------- SPEC : [id number] ?RECD: 10/10/23 ? STATUS: ??SOUT ? REQ NUM: [id number] ? GERONIMO: 10/07/23-1650 ? SUBM DR: Meaghan Bhat DO ? ENTERED: ??10/10/231 ?SP TYPE: Pap Smr ?OTHR DR: ? ORDERED: ??Pap Smear ? Interpretation ?? Satisfactory for evaluation. ?? Negative for intraepithelial lesion or malignancy. ?HPV mRNA E6/E7: ?NOT DETECTED ? This assay detects E6/E7 viral messenger RNA (mRNA) from 14 high-risk HPV types (16, 18, ?? 31, 33, 35, 39, 45, 51, 52, 56, 58, 59, 66, 68) ?? HPV testing performed by [facility], [place], [place]. ??See reference laboratory ?? portion of the EMR for entire report. ?Clinical Information LMP: Postmenopausal Previous PAP test: Unknown date, WNL ? Material Received ?? ThinPrep-Cervical ----- ------- Signed (signature on file) MEHNAZ Yadav (ASCP) 10/19/23 1300 ? ----- ------- ? END OF REPORT ? us Meaghan Bhat DO LAB CYTOLOGY ORDERABLES Shanita latif Result [facility] [address] [place] [phone] from Last 3 Months or Most Recently Relevant to Health Maintenance [facility] Care Teams Supervisor Diagnostic Relationship Specialty Start Date End Date Meaghan Bhat DO [address] [place] [address] PCP - General Family Medicine 02/18/20 Ab Montes Rating SpecialistDesizing Machine Operator Head End 11/26/24
--- OUTSIDE RECORDS SUMMARY | 2024-12-05 15:41 | XMS_ITS | Encounter Summary ---
Author Organization [employer] Address [address] 7[address] [place] [address] Care Team Providers Care Injection Mold Technician Name Role Phone Meaghan Bhat DO Primary Care Provider + [phone] Encounter Details Date Type Department Care Team (Late st Contact Info) Description 11/03/2023 Orders Only [facility] MEDICINE [address] [place], [place] [phone] ProviderDeb MD Social History Tobacco Use Types [...] as of this encounter Plan of Treatment Upcoming Encounters Date Type Department Care Team (Late st Contact Info) Description 12/07/2024 9:30 AM EST Office Visit [facility] [address] [place] [address] Ailin Parker NP [address] [place] [address] documented as of this encounter Visit Diagnoses Not on filedocumented in this encounter Additional Health Concerns Assessment Noted Time PHQ-9 Depression Total Score: 3 10/26/19 24 11:41 AM EST documented as of this encounter Care Teams Injection Mold Technician Relationship Specialty Start Date End Date Meaghan Bhat DO [address] [place] [address] PCP - General Family Medicine 02/18/20 Ab Montes Literature TeacherLawyer Probate 11/26/24 documented as of this encounter
--- OUTSIDE RECORDS SUMMARY | 2024-12-05 15:41 | XMS_ITS | Encounter Summary ---
Author Organization [employer] [facility] Address [address] [facility] 7t [place] [address] Care Team Providers Care Patient Carrier Name Role Phone Meaghan Bhat DO Primary Care Provider + [phone] Encounter Details Date Type Department Care Team (Latest Contact Info) Description 09/10/2020 Abstract [facility] CONVERSIONS Dental, Provider, DDS Social History Tobacco [...] Upcoming Encounters Date Type Department Care Team ( st Contact Info) Description 12/07/2024 9:30 AM EST Office Visit [facility] MEDICINE [address] [place] [address] Ailin Parker NP [address] [place] [address] documented as of this encounter Visit Diagnoses Not on filedocumented in this encounter Care Teams Patient Carrier Relationship Specialty Start Date End Date Meaghan Bhat DO [address] [place] [address] PCP - General Family Medicine 02/18/20 Ab Montes Restaurant Operations ManagerInventory Analyst 11/26/24 documented as of this encounter
--- OUTSIDE RECORDS SUMMARY | 2024-12-05 15:41 | XMS_ITS | Encounter Summary ---
Author Organization [employer] Address [address] [facility] 7t [place] [address] Care Team Providers Care Packing Machine Pilot Can Router Name Role Phone Meaghan Bhat DO Primary Care Provider + [phone] Reason for Visit * Reason Onset Date Comments Results 11/30/2024 Encounter Details Date Type Department Care Team ([facility] st Contact Info) Description 11/30/2024 Telephone [facility] [address] [place], [place] [phone] Celina Brito, JONATHAN [address] [place] [address] Results Social History Tobacco Use Types Packs/Day Years [...] Telephone Encounter - Celina Brito RN - 11/30/2024 11:15 AM EST RN reviewed recent BW results with PCP. BW returned showing worsening of pre-diabetes. TC placed to patient [phone] via [employer] ([employer] #[id number]) to inform of above message.Patient verbalized understanding and was advised of dietary changes to make to prevent prediabetes from turning into diabetes. Patient verbalized understanding. Patient to f/u PRN. documented in this encounter Plan of Treatment Upcoming Encounters Date Type Department Care Team (Late st Contact Info) Description 12/07/2024 9:30 AM EST Office Visit [facility] [address] [place] [address] Ailin Parker NP [address] [place] [address] documented as of this encounter Visit Diagnoses Not on filedocumented in this encounter Additional Health Concerns Assessment Noted Time PHQ-9 Depression Total Score: 6 11/21/19 25 9:42 AM EST documented as of this encounter Care Teams Packing Machine Pilot Can Router Relationship Specialty Start Date End Date Meaghan Bhat DO [address] [place] [address] PCP - General Family Medicine 02/18/20 Ab Montes [employer] Art TeacherCardiac/Vascular Sonographer 11/26/24 documented as of this encounter
--- OUTSIDE RECORDS SUMMARY | 2024-12-05 15:41 | XMS_ITS | Encounter Summary ---
Author Organization [employer] Address [address] [facility] 7t [place] [address] Care Team Providers Care Batteryman Name Role Phone Meaghan Bhat DO Primary Care Provider + [phone] Reason for Visit * Reason Comments Transition Of Care (Tcm) Encounter Details Date Type Department Care Team ([facility] st Contact Info) Description 11/28/2024 Patient Outreach [facility] MEDICINE [address] [place], [place] [phone] Meaghan Bhat DO [address] [place], [place] [phone] Transition Of Care (Tcm) Social History Tobacco Use Types Packs/Day Years [...] as of this encounter Progress Notes * Jacklyn Caal RN - 11/28/2024 3:08 PM EST Transition of Care Note Viry Marti is going through a recent transition of care. * Jacklyn Caal RN - 11/28/2024 3:08 PM EST Hospital Discharges and Admission for [facility] Type of Visit: Emergency Department Date of Admission/Visit: 11/27/24 Date of Discharge: 11/28/24 Facility: [facility] Diagnosis: CT SCAN Disposition: Discharged Home Follow-Up Actions Follow-Up Needed: None/self-monitoring Follow-Up Outcome: Spoke to Patient Initial Contact Date: 11/29/24 Patient Contacted: Yes Patient Status: Improved Call placed to Viry Marti for ER follow up. No interviewing clerk needed as this personal lines underwriter speaks Albanian. Patient reports started rx for Augmentin as prescribed and no further episodes of bloody stools. Pt still having mild cramping but not severe pain. Pt agrees to complete abx and returncall if sx worsen or fail to fully resolves. Reviewed ER precautions and reasons to call back. The full discharge summary is Is available under media scanned document Review Flowsheet [facility] Transition of Care Documentation Type of Visit Date of Admission/Visit Date of Discharge Facility Diagnosis Disposition 11/28/2024 3:10 PM Emergency Department 11/27/2024 11/28/[address] [facility] [address] SCAN Discharged Home 11/29/2024 11:00 AM Emergency Department 11/27/2024 11/28/[address] [facility] [address] SCAN Discharged Home Recent Visits Date Type Provider Dept 11/27/24 Office Visit Renetta Frey MD [facility] 11/21/24 Office Visit Meaghan Bhat DO [facility] Medicine 05/04/24 Office Visit Meaghan Bhat DO [facility] Medicine 03/16/24 Office Visit Nicol Spear MD [facility] 02/15/24 Office Visit Meaghan Bhat DO [facility] Medicine Showing recent visits within past 365 days with a meds authorizing provider and meeting all other requirements Future Appointments No visits were found meeting these conditions. Showing future appointments within next 150 days with a meds authorizing provider and meeting all other requirements Patient was educated on hours of operation. documented in this encounter Plan of Treatment Upcoming Encounters Date Type Department Care Team (Late st Contact Info) Description 12/07/2024 9:30 AM EST Office Visit [facility] MEDICINE [address] [place] [address] Ailin Parker NP [address] [place] [address] documented as of this encounter Visit Diagnoses Not on filedocumented in this encounter Additional Health Concerns Assessment Noted Time PHQ-9 Depression Total Score: 6 11/21/19 9:42 AM EST documented as of this encounter Care Teams Batteryman Relationship Specialty Start Date End Date Meaghan Bhat DO [address] [place] [address] PCP - General Family Medicine 02/18/20 Ab Montes Recreation Activities CoordinatorSteam Station Supervisor 11/26/24 documented as of this encounter
--- OUTSIDE RECORDS SUMMARY | 2024-12-05 15:41 | XMS_ITS | Encounter Summary ---
Author Organization [employer] Address [address] 7t [place] [address] Care Team Providers Care Dry Cell Battery Assembler Name Role Phone Meaghan Bhat DO Primary Care Provider + [phone] Encounter Details Date Type Department Care Team (Late st Contact Info) Description 05/14/2024 Orders Only [facility] MEDICINE [address] [place], [place] [phone] ProviderDeb MD Social History Tobacco Use Types [...] t he electric, gas, oil or water [employer] threatened to shut off services in your [...] Description 12/07/2024 9:30 AM EST Office Visit [facility] [address] [facility] [place] [address] Ailin Parker NP [address] [place] [address] documented as of this encounter Procedures Procedure [...] ? [address] ?[place] [address] ?XRay Report ? Signed ? Patient: Lavelle Marti,Viry ?M ?? R#: [id number] ? : 1970 ?Acct:[id number] ? Age/Sex: 53 / F ?ADM Date: 05/23/24 ? Loc: HO.HOSX ? Attending Dr: Melissa Leyva PA-C ? Ordering Physician: Melissa Leyva PA-C ?? Date of Service: 05/23/24 ?? Procedure(s): XR knee RT 1V ?? Accession Number(s): [id number] ? cc: Meaghan Bhat DO; Melissa Leyva [...] 1701 ? DD/ 1003 ? TD/TT: ? Justice Professor: BEN ? Procedure Note Mell Image - 06/11/2024 [facility] [address] [place] [address] [address] [place] [address] XRay Report Signed Patient: Keegan Bryant R#: [id number] : 1970Acct:[id number] Age/Sex: 53 / FADM Date: 05/23/24 Loc: HO.WYATT Attending Dr: Melissa Leyva PA-C Ordering Physician: Melissa Leyva PA-C Date of Service: 05/23/24 Procedure(s): XR knee RT 1V Accession Number(s): [id number] cc: Meaghan Bhat DO; Melissa Leyva PA-C [...] in OV> 06/11/24 1701 DD/ 1003 TD/TT: Justice Professor: BEN [facility] External Provider IMG XR PROCEDURES Final Result documented in this encounter Visit Diagnoses Not on filedocumented in this encounter Additional Health Concerns Assessment Noted Time PHQ-9 Depression Total Score: 2 11/16/19 24 10:21 AM EST documented as of this encounter Care Teams Dry Cell Battery Assembler Relationship Specialty Start Date End Date Meaghan Bhat DO [address] [place] [address] PCP - General Family Medicine 02/18/20 Ab Montes Sill WorkerBusiness Practices Supervisor 11/26/24 documented as of this encounter
--- OUTSIDE RECORDS SUMMARY | 2024-12-05 15:41 | XMS_ITS | Encounter Summary ---
Author Organization [email or web address] Address [address] [facility] 7t [place] [address] Care Team Providers Care Pick Pulling Machine Operator Name Role Phone Meaghan Bhat DO Primary Care Provider + [phone] Reason for Referral * Consultation (Routine) - Authorized Specialty Diagnoses / Procedures Referred By Ana calvillo Referred To Contact Gastroenterology Diagnoses Colon cancer screening Renetta Frey MD [address] [place] [address] Phone: tel: fax: [address] Phone: tel: fax: Referral ID Status Reason Start Date Expiration Date Visits Requested Visits Authorized [id number] Authorized Specialty Services Required 11/27/2024 11/27/2025 1 1 Reason for Visit * Reason Comments Abdominal Pain Encounter Details Date Type Department Care Team (Late st Contact Info) Description 11/27/2024 5:20 PM EST Office Visit [facility] [address] [place] [address] Renetta Frey MD [address] [place] [address] RLQ abdominal pain (Primary Dx); Colon [...] in this encounter Progress Notes * Renetta Frey MD - 11/27/2024 5:20 PM EST Images [...] 11/27/2024 5:20 PM EST Expect called to [facility] at [phone] per verbal order per Dr. Frey. RN gave verbal report Stephanie, whom verbalized understanding. [facility] to F/U as needed. documented in [...] Description 12/07/2024 9:30 AM EST Office Visit [facility] [address] [place] [address] Ailin Parker NP [address] [place] [address] Scheduled Referrals Name Type Priority Associated Diagnoses [...] documented as of this encounter Care Teams Pick Pulling Machine Operator Relationship Specialty Start Date End Date Meaghan Bhat DO [address] [place] [address] PCP - General Family Medicine 02/18/20 Ab Montes Loss Control ManagerModeling Teacher 11/26/24 documented as of this encounter
--- OUTSIDE RECORDS SUMMARY | 2024-12-05 15:41 | XMS_ITS | Encounter Summary ---
Author Organization [employer] Address [address] 7t [place] [address] Care Team Providers Care Clay Press Operator Name Role Phone Meaghan Bhat DO Primary Care Provider + [phone] Encounter Details Date Type Department Care Team [...] Description 12/07/2024 9:30 AM EST Office Visit [facility] MEDICINE [address] [place] [address] Ailin Parker NP [address] [place] [address] documented as of this encounter Visit Diagnoses Not on filedocumented in this encounter Additional Health Concerns Assessment Noted Time PHQ-9 Depression Total Score: 6 11/21/19 25 9:42 AM EST documented as of this encounter Care Teams Clay Press Operator Relationship Specialty Start Date End Date Meaghan Bhat DO [address] [place] [address] PCP - General Family Medicine 02/18/20 documented as of this encounter
--- OUTSIDE RECORDS SUMMARY | 2024-12-05 15:41 | XMS_ITS | Encounter Summary ---
Author Organization [employer] Address [address] [place] [address] Care Team Providers Care Eligibility Consultant Name Role Phone Meaghan Bhat DO Primary Care Provider + [phone] Encounter Details Date Type Department Care Team ([facility] st Contact Info) Description 11/26/2024 Patient Outreach [facility]ED[facility] [address] [place], [place] [phone] Meaghan Bhat DO [address] [place] [address] Social History Tobacco Use Types Packs/Day Years [...] Description 12/07/2024 9:30 AM EST Office Visit [facility] MEDICINE [address] [place] [address] Ailin Parker NP [address] [place] [address] documented as of this encounter Visit Diagnoses Not on filedocumented in this encounter Additional Health Concerns Assessment Noted Time PHQ-9 Depression Total Score: 6 11/21/19 9:42 AM EST documented as of this encounter Care Teams Eligibility Consultant Relationship Specialty Start Date End Date Meaghan Bhat DO [address] [place] [address] PCP - General Family Medicine 02/18/20 Ab Montes Machine Lead BurnerSr. Manager 11/26/24 documented as of this encounter
--- OUTSIDE RECORDS SUMMARY | 2024-12-05 15:41 | XMS_ITS | Encounter Summary ---
Author Organization [employer] Address [address] [place] [address] Care Team Providers Care Earth Science Technician Name Role Phone Meaghan Bhat DO Primary Care Provider + [phone] Reason for Visit * Reason Comments Care Coordination ICP Care Plan Encounter Details Date Type Department Care Team ([facility] st Contact Info) Description 11/26/2024 Telephone [facility] MED & PEDS [address] [place], [place] [phone] Meaghan Bhat DO [address] [place] [address] Care Coordination (ICP Care Plan ) Social [...] has received and reviewed Care Plan from [facility]: Senior Information Security Engineer: Ab Montes Contact Information: [phone] Care Plan scanned into patient's EHR and notification sent to PCP. documented in this encounter Plan of Treatment Upcoming Encounters Date Type Department Care Team (Late st Contact Info) Description 12/07/2024 9:30 AM EST Office Visit [facility] MEDICINE [address] [place] [address] Ailin Parker NP [address] [place] [address] documented as of this encounter Visit Diagnoses Not on filedocumented in this encounter Additional Health Concerns Assessment Noted Time PHQ-9 Depression Total Score: 6 11/21/19 25 9:42 AM EST documented as of this encounter Care Teams Earth Science Technician Relationship Specialty Start Date End Date Meaghan Bhat DO [address] [place] [address] PCP - General Family Medicine 02/18/20 Ab Montes Pe Electrical EngineerCardiac Care Nurse 11/26/24 documented as of this encounter
--- OUTSIDE RECORDS SUMMARY | 2024-12-05 15:41 | XMS_ITS | Encounter Summary ---
Author Organization [employer] Address [address] [facility] 7t [place] [address] Care Team Providers Care Matcher Name Role Phone Meaghan Bhat DO Primary Care Provider + [phone] Reason for Referral * Imaging (Routine) - Authorized Specialty Diagnoses / Procedures Referred By Contac t Referred To Contact Radiology Diagnoses Nephrolithiasis Procedures US RENAL BI Meaghan Bhat DO [address] [place] [address] Phone: tel: fax: [address] Phone: tel: fax: Referral ID Status Reason Start Date Expiration Date V isits Requested Visits Authorized [id number] Authorized 11/21/2024 11/21/2025 1 1 * Consultation (Routine) - Authorized Specialty Diagnoses / Procedures Referred By Contac t Referred To Contact Family Medicine Diagnoses Skin lesions Meaghan Bhat DO [address] [place] [address] Phone: tel: fax: Referral ID Status Reason Start Date Expiration Date Visits Requested Visits Authorized [id number] Authorized Specialty Services Required 11/21/2024 11/21/2025 1 1 * Hospital - Outpatient (Routine) - Authorized Specialty Diagnoses / Procedures Referred By Ana calvillo Referred To Contact Diagnoses Sleep-disordered breathing Procedures Polysomnography Meaghan Bhat DO [address] [place] [address] Phone: tel: fax: [facility] Referral ID Status Reason Start Date Expiration Date V isits Requested Visits Authorized [id number] Authorized 11/21/2024 11/21/2025 1 1 * Consultation (Urgent) - Authorized Specialty Diagnoses / Procedures Referred By Ana calvillo Referred To Contact Pain Medicine Diagnoses Chronic bilateral low back pain with sciatica, sciatica laterality unspecified Meaghan Bhat DO [address] [place], [place] Phone: tel: fax: [facility] [place] [address] [place] [address] 2nd Floor [place], [place] Phone: tel: fax: Referral ID Status Reason Start Date Expiration Date Visits Requested Visits Authorized [id number] Authorized Specialty Services Required 11/22/2024 11/22/2025 6 6 * Consultation (Urgent) - Authorized Specialty Diagnoses / Procedures Referred By Ana calvillo Referred To Contact Breast Surgery Diagnoses Abnormal mammogram of left breast [place] [address] Phone: tel: fax: [facility] [address] [facility] 3[address] [place], [place] Phone: tel: fax: Referral ID Status Reason Start Date Expiration Date Visits Requested Visits Authorized [id number] Authorized Specialty Services Required 11/22/2024 11/22/2025 6 6 Encounter Details Date Type Department Care Team (Late st Contact Info) Description 11/21/2024 9:30 AM EST Office Visit [facility] [address] [facility] [place] [address] Meaghan Bhat DO [address] [facility] [place] [address] Routine history and physical examination of adult [...] She had eye exam in JUL at [facility]. She was told that she had [...] a 22 y/o daughter, who is her SHOE SALESPERSON, and 14 y/o son. She is not [...] breast surgeon for eval BMI 38.0-38.9,adult -encouraged [id number] 5 Servings of fruit and vegetables each [...] Description 12/07/2024 9:30 AM EST Office Visit [facility] [address] [place], [place] [phone] Ailin Parker NP [address] [place], [place] [phone] Scheduled Orders Name Type Priority Associated Diagnoses Orde r Schedule Polysomnography Sleep Center Routine Sleep-disordered breathing Expected: 11/21/2024 (Approximate), Expires: 11/21/2025 US RENAL BI Imaging Routine Nephrolithiasis Expected: 11/21/2024, Expires: 11/21/2025 Scheduled Referrals Name Type Priority Associated Diagnoses Orde r Schedule Referral to Breast Surgery Outpatient Referral Urgent Abnormal mammogram of left breast Expected: 11/21/2024 (Approximate), Expires: 11/21/2025 Referral to Pain Medicine Outpatient Referral Urgent Chronic bilateral low back pain with sciatica, sciatica laterality unspecified Expected: 11/21/2024 (Approximate), Expires: 11/21/2025 Referral to [facility] Derm Skin Adult Outpatient Referral Routine Skin lesions Expected: 11/21/2024 (Approximate), Expires: 11/21/2025 documented as of this encounter Procedures Procedure Name Priority Date/Time Associated Diagnosis Comments T-SPOT(R).TB Routine 11/21/2024 11:33 AM EST Routine history and physical examination of adult documented in this encounter Results * T-SPOT??.TB (11/21/2024 11:33 AM EST) Pathologist [facility] T Spot TB Negative Negative [facility] Negative Control Passed [facility] Positive Control Passed [facility] Comment:For additional infor mation, please refer tohttp://education.[employer]/faq/HBN507(This link is being provided for informational/educational purposes only.)THIS TEST WAS PERFORMED AT:[employer] [id number] [place], [place] - [address]RAMÍREZ CROWLEY MD,PHD 11/21/2024 11:3 3 AM EST 11/21/2024 1:40 PM EST us Meaghan Bhat DO LAB BLOOD ORDERABLES Final R esult [facility] [address] [place] [phone] documented in this encounter Visit Diagnoses [...] documented as of this encounter Care Teams Matcher Relationship Specialty Start Date End Date Meaghan Bhat DO [address] [place] [address] PCP - General Family Medicine 02/18/20 documented as of this encounter
--- OUTSIDE RECORDS SUMMARY | 2024-12-05 15:41 | XMS_ITS | Encounter Summary ---
Author Organization [employer] Address [address] [facility] [address] 7[address] [place] [address] Care Team Providers Care Boxer Operator Name Role Phone Meaghan Bhat DO Primary Care Provider + [phone] Encounter Details Date Type Department Care Team [...] Description 12/07/2024 9:30 AM EST Office Visit [facility] [address] [place] [address] Ailin Parker NP [address] [place] [address] documented as of this encounter Visit Diagnoses Not on filedocumented in this encounter Additional Health Concerns Assessment Noted Time PHQ-9 Depression Total Score: 6 11/21/19 9:42 AM EST documented as of this encounter Care Teams Boxer Operator Relationship Specialty Start Date End Date Meaghan Bhat DO [address] [place] [address] PCP - General Family Medicine 02/18/20 Ab Montes Software Development EngineerHvac Service Technician 11/26/24 documented as of this encounter
--- OUTSIDE RECORDS SUMMARY | 2024-12-05 15:41 | XMS_ITS | Encounter Summary ---
Author Organization [employer] Address [address] [facility] [address] [place] [address] Care Team Providers Care Lead Generation Specialist Name Role Phone Meaghan Bhat DO Primary Care Provider + [phone] Encounter Details Date Type Department Care Team (Late st Contact Info) Description 11/06/2024 Orders Only [facility] [address] [place], [place] [phone] ProviderDeb MD Social History Tobacco Use Types [...] Description 12/07/2024 9:30 AM EST Office Visit [facility] [address] [place], [place] [phone] Ailin Parker NP [address] [place], [place] [phone] documented as of this encounter Procedures Procedure [...] documented as of this encounter Care Teams Lead Generation Specialist Relationship Specialty Start Date End Date Meaghan Bhat DO [address] [place] [address] PCP - General Family Medicine 02/18/20 Ab Montes Central Lab TechnicianMiddle School Technology Teacher 11/26/24 documented as of this encounter
--- OUTSIDE RECORDS SUMMARY | 2024-12-05 15:41 | XMS_ITS | Encounter Summary ---
Author Organization [employer] Address [address] [facility] [address] [facility] [address] [address] 7[address] [place] [address] Care Team Providers Care Geriatrics Physician Name Role Phone Meaghan Bhat DO Primary Care Provider + [phone] Encounter Details Date Type Department Care Team [...] Description 12/07/2024 9:30 AM EST Office Visit [facility] [address] [place], [place] [phone] Ailin Parker NP [address] [place] [address] documented as of this encounter Procedures Procedure Name Priority Date/Time Associated Diagnosis Comments CT ABDOMEN PELVIS W CONTRAST Routine 11/28/2024 12:47 AM EST CBC WITH AUTO DIFFERENTIAL Routine 11/27/2024 6:44 PM EST MAGNESIUM Routine 11/27/2024 6:44 PM EST LIPASE Routine 11/27/2024 6:44 PM EST COMPREHENSIVE METABOLIC PANEL Routine 11/27/2024 6:44 PM EST documented in this encounter Results * CT Abdomen Pelvis w/ Contrast (11/28/2024 12:47 AM EST) Anatomical Region Laterality Modality Body, Pelvis, Abdomen Computed T omography 11/28/2024 12:4 7 AM EST Narrative 11/28/2024 12:48 AM EST ? [facility] ?[address] ?[place] [address] ? CT Scan Report ? Signed ? Patient: Lavelle Marti,Viry ?M ?? R#: [id number] ? : 1970 ?Acct:[id number] ? Age/Sex: 54 / F ?ADM Date: 02/04/25 ? Loc: HO.ED ? Attending Dr: ? Ordering Physician: Keith Lechuga ?? Date of Service: 11/28/24 ?? Procedure(s): CT abdomen pelvis w IV con ?? Accession Number(s): [id number] ? cc: Meaghan Bhat DO; Keith Lechuga ? Report Number: ?? [id number]: Total DLP = ??734.00 mGy-cm ? CLINICAL [...] by Yordy Crum MD in OV> ? 11/28/2447 ? DD/ ? TD/TT: 11/28/2446 ? User Experience Developer: ? Procedure Note Donotuseinterpreter, Image - 11/28/[address] [address] [address] Scan Report Signed Patient: Keegan Bryant R#: [id number] : 1970Acct:[id number] Age/Sex: 54 / FADM Date: 11/27/24 Loc: HO.ED Attending Dr: Ordering Physician: Keith Lechuga Date of Service: 11/28/24 Procedure(s): CT abdomen pelvis w IV con Accession Number(s): [id number] cc: Meaghan Bhat DO; Keith Lechuga Report Number: [id number]: Total DLP = 734.00 mGy-cm CLINICAL HISTORY: [...] MD in OV> 11/28/2447 DD/ TD/TT: 11/28/2446 User Experience Developer: [facility] External Provider IMG CT PROCEDURES Edited Result - Final * Lipase (11/27/2024 6:44 PM EST) Pathologist [facility] Lipase 31 8 - 78 U/L [facility] 11/27/2024 6:44 PM EST 11/27/2024 6:46 PM EST Generic External Data Provider LAB BLOOD ORDERAB LES Final Result Performing Organization Address City/[facility]/ZIP Co de Phone Number [facility] [address] [place] [phone] * Magnesium (11/27/2024 6:44 PM EST) Pathologist [facility] Magnesium 2.1 1.6 - 2.6 mg/dL [facility] 11/27/2024 6:44 PM EST 11/27/2024 6:46 PM EST Generic External Data Provider LAB BLOOD ORDERAB LES Final Result Performing Organization Address [facility]/ZIP Co de Phone Number [facility] [address] [place] [phone] * Comprehensive Metabolic Panel (11/27/2024 6:44 PM EST) Sodium 143 135 - 145 mmol/L [facility] Potassium 4.2 3.3 - 5.1 mmol/L [facility] Chloride 105 96 - 108 mmol/L [facility] Carbon Dioxide 27 22 - 29 mmol/L [facility] Anion Gap 15 12 - 20 [facility] Urea Nitrogen (BUN) 11 9 - 16 mg/dL [facility] Creatinine, Serum 0.73 0.5 - 1.4 mg/dL [facility] Creatinine Clr Calc Pharmacy 90.0 [facility] Comment:Provided height and weight: 154.94 cm,92.079 kg.eGFR (calculated from the MDRD study equation) and eCrCl(calculated from the Cockcroft-Gault equation) are based ondifferent parameters and may not yield comparable results.If eCrCl result is absurd, please check patient'sheight/weight. Estimated Glomerular Filt Rate >60 [facility] Comment:Chronic Kidney Disea se: Estimated GFR < 60 mL/min/1.96z0Cphhtp Kidney Disease: Estimated GFR < 15 mL/min/1.73m2 Glucose 88 60 - 115 mg/dL [facility] Calcium 9.3 8.4 - 10.2 mg/dL [facility] Bilirubin, Total 0.4 0.0 - 1.0 mg/dL [facility] Aspartate Amino Transferase 17 5 - 31 U/L [facility] Alanine Aminotransferase 22 0 - 31 U/L [facility] Total Protein 7.9 6.5 - 8.0 g/dL [facility] Albumin Level 4.2 3.5 - 5.0 g/dL [facility] Alkaline Phosphatase 94 39 - 117 U/L [facility] 11/27/2024 6:44 PM EST 11/27/2024 6:46 PM EST us Generic External Data Provider LAB BLOOD ORDERAB LES Final Result [facility] [address] [place] [phone] * (ABNORMAL) CBC auto differential (11/27/2024 6:44 PM EST) White Blood Count 11.9(H) 4.8 - 10.8 X10*3/uL [facility] Red Blood Count 4.68 4.20 - 5.50 X10*6/uL [facility] Hemoglobin 13.0 12.0 - 16.0 g/dl [facility] Hematocrit 39.6 37.0 - 47.0 % [facility] Mean Corpuscular Volume 84.6 80.0 - 98.0 fL [facility] Mean Corpuscular Hemoglobin 27.8 27.0 - 33.0 pg [facility] Mean Corpuscular HGB Conc 32.8 31.0 - 35.0 g/dl [facility] Red Cell Distribution Width 13.8 11.0 - 16.0 % [facility] Platelet Count 358 160 - 400 X10*3/uL [facility] Mean Platelet Volume 8.6(L) 9.4 - 12.3 fL [facility] Neutrophils Percent Auto 61.0 45 - 73 % [facility] Imm Gran Pct Auto 0.3 0.0 - 0.4 % [facility] Lymphocytes Percent Auto 28.4 20 - 40 % [facility] Monocytes Percent Auto 7.7 2 - 11 % [facility] Eosinophils Percent Auto 2.0 0 - 4 % [facility] Basophils Percent Auto 0.6 0 - 2 % [facility] NRBC Pct Auto 0.0 0.0 - 0.2 /100WBC [facility] Neutrophils Absolute Auto 7.3 2.0 - 8.3 x10*3/uL [facility] Imm Gran Abs Auto 0.04(H) 0.00 - 0.03 X10*3/uL [facility] Lymphocytes Absolute Auto 3.4 1.2 - 4.9 X10*3/uL [facility] Monocytes Absolute Auto 0.9 0.1 - 1.2 X10*3/uL [facility] Eosinophils Absolute Auto 0.2 0.0 - 0.4 X10*3/uL [facility] Basophils Absolute Auto 0.1 0.0 - 0.2 X10*3/uL [facility] NRBC Abs Auto 0.000 0.0 - 0.012 X10*3/uL [facility] 11/27/2024 6:44 PM EST 11/27/2024 6:46 PM EST us Generic External Data Provider LAB BLOOD ORDERAB LES Final Result [facility] [address] [place] [phone] documented in this encounter Visit Diagnoses Not on filedocumented in this encounter Additional Health Concerns Assessment Noted Time PHQ-9 Depression Total Score: 6 11/21/19 25 9:42 AM EST documented as of this encounter Care Teams Geriatrics Physician Relationship Specialty Start Date End Date Meaghan Bhat DO [address] [place] [phone] PCP - General Family Medicine 02/18/20 Ab Montes Food And Beverage CashierAdobe Cq Developer 11/26/24 documented as of this encounter
== END 2024-12-05 14:26 | disposition home or self-care (01) ==
LOC: HO.US 14:25
PROVIDERS: PCP Family Medicine; Visit Provider Family Medicine
DX: N20.0 Calculus of kidney (principal)
CPT/HCPCS: 76775

== ENCOUNTER → 2024-12-05 14:28 | Outpatient (BNV) | payer MEDICAID, SELFPAY | PROVIDERS: PCP Family Medicine; Visit Provider Radiology Diagnostic Radiology | DX: N20.0 Calculus of kidney (principal) | CPT/HCPCS: 76775 ==

== ENCOUNTER 2024-12-07 10:02 | Outpatient (REF) | payer MEDICAID, SELFPAY ==
--- OUTSIDE RECORDS SUMMARY | 2024-12-07 10:45 | XMS_ITS | Encounter Summary ---
Author Organization [employer] Address [address] [place] [address] Care Team Providers Care Hair Dresser Name Role Phone Meaghan Bhat DO Primary Care Provider + [phone] Encounter Details Date Type Department Care Team [...] documented as of this encounter Care Teams Hair Dresser Relationship Specialty Start Date End Date Meaghan Bhat DO [address] [place] [address] PCP - General Family Medicine 02/18/20 documented as of this encounter
--- OUTSIDE RECORDS SUMMARY | 2024-12-07 10:45 | XMS_ITS | Clinical Summary ---
Author Organization [employer] Address [address] [place] [address] Care Team Providers Care Nuclear Unit Operator Name Role Phone Perlita Meaghan Primary Care Provider + [phone] Allergies No known active allergies Medications * [...] for muscle spasms. 60 tablet 3 11/21/19 25 026 Active ondansetron (Zofran) 8 MG tabletIndicati ons:Diverticul itis,Daily nausea Take 1 tablet (8 mg) by mouth every 8 (eight) hours if needed for nausea or vomiting for up to 5 days. 20 tablet 12/07/19 25 025 Active hydrOXYzine pamoate (Vistaril) 25 MG capsule [...] for mild pain. 60 tablet 3 02/15/20 24 025 Discontinued(Re order (will not trigger notification to Pharmacy)) baclofen (Lioresal) 10 MG tablet Take 1 tablet (10 mg) by mouth if needed in the morning, at noon, and at bedtime for muscle spasms. 60 tablet 3 02/15/20 24 025 Discontinued Diclofenac Sodium 1 % gel Apply 2 g topically if needed in the morning, at noon, in the evening, and at bedtime (pain). 150 g 3 02/15/20 24 025 Discontinued(Re order (will not trigger notification to Pharmacy)) Active Problems Problem Noted Date Diagnosed Date Diarrhea of infectious origin 12/07/2024 Daily nausea 12/07/2024 Diverticulitis 12/07/2024 RLQ abdominal pain 11/27/2024 Assessment & Plan [...] having panic attacks. Education provided around contacting [facility] centers to receive immediate support. clinician engaged [...] depressive disorder without prior episode 08/31/2023 Encounters * This document contains information received from the source organization and may not represent a complete record from that organization. Date Type Department Care Team Description 12/07/2024 9:30 AM EST Office Visit [facility] MEDICINE [address] [place] [phone] Ailin Parker, HEDY Diverticulitis (Primary Dx); Daily nausea; Diarrhea of infectious origin 12/07/2024 Travel 12/07/[address] [address] Meaghan Bhat DO Order(s) 12/06/[address] [address] Sarika Perez MA Chart Prep 12/05/[address] [address] Meaghan Bhat DO Nurse Triage 12/03/[address] [address] Caitlin Roca, JONATHAN 11/30/[address] [address] Celina Brito, RN Results 11/28/2024 Patient Outreach [address] [address] Meaghan Bhat DO Transition Of Care (Tcm) 11/27/2024 5:20 PM EST Office Visit [facility] WALK-IN CENTER [address] [place] [phone] Renetta Frey MD RLQ abdominal pain (Primary Dx); Colon cancer screening 11/27/2024 Orders Only GENERIC EXTERNAL DATA DEPARTMENT Provider, Generic External Data 11/27/2024 Travel 11/27/[address] [address] Meaghan Bhat DO Nurse Triage 11/26/2024 Telephone [facility] [address] [place] [address] Meaghan Bhat DO Care Coordination (ICP Care Plan ) 11/26/2024 Patient Outreach [facility] [address] [place] [address] Meaghan Bhat DO 11/21/2024 9:30 AM EST Office Visit [address] [address] Meaghan Bhat DO Routine history and physical examination of adult (Primary Dx); Panic disorder; Mild intermittent asthma without complication; Nephrolithiasis; Bilateral carpal tunnel syndrome; Chronic bilateral low back pain with sciatica, sciatica laterality unspecified; Chronic pain of right knee; Chronic GERD; Skin lesions; Sleep-disordered breathing; Abnormal mammogram of left breast; BMI 38.0-38.9,adult; Dietary counseling; Exercise counseling 11/21/2024 Travel 11/09/2024 Patient Outreach [facility] [address] [place] [phone] Meaghan Bhat DO Pre-visit Planning (SDOH screening negative and tobacco screening negative) 11/07/2024 Telephone [facility] [address] [place] [address] Celina Brito, JONATHAN Breast US order 11/06/2024 Orders Only [facility] [address] [place] [phone] Deb Rasmussen MD 10/29/[address] [address] Celina Brito RN [facility] breast order 09/06/2024 9:45 AM EST Office Visit [facility] OPTOMETRY [address] [place] [address] Bharath, Valarie, OD Presbyopia (Primary Dx) from [...] Sign Reading Time Taken Comments Blood Pressure 122/71 12/07/2024 9:25 AM EST Pulse 95 12/07/2024 9:25 AM EST Temperature 34.6 ??C (94.3 ??F) 12/07/2024 9:25 AM ES T Respiratory Rate 16 12/07/2024 9:25 AM EST Oxygen Saturation 99% 12/07/2024 9:25 AM EST Inhaled Oxygen Concentration - - Weight 89.9 kg (198 lb 3.2 oz) 12/07/2024 9:25 A M EST Height 154.9 cm (5' 1 ) 12/07/2024 9:25 AM EST Body Mass Index 37.45 12/07/2024 9:25 AM EST Plan of Treatment Health Maintenance Due Date Last Done Comments CT Colonography 1970 Colonoscopy 1969 Colorectal Cancer Screening 1970 FIT DNA/Cologuard 1969 FIT 1969 FOBT 1969 Sigmoidoscopy 1969 Hepatitis B Vaccines (1 of 3 - 19+ 3-dose series) 1988 COVID-19 Vaccine ( season) 2024 11/11/2021, 03/24/2021, 02/25/2021 Influenza Vaccine (#1) 2024 08/29/2023, 2017 Diagnostic Breast Imaging 05/05/20252024, 05/03/2024, 11/03/2023, Additional history exists Mammogram 05/05/2025 11/05/2024, 04/23, 11/03/2023, Additional history exists SDOH Screening 11/09/2025 11/09/2024 Depression Screening 11/21/2025 11/21/2024, 11/21/19 25 Diabetes: Hemoglobin A1C 11/21/2025 11/21/2024, 1103/2023 Alcohol/Substance Use Screening 12/07/2025 12/07/2024 Tobacco Screening 12/07/2025 12/07/2024 Cervical Cancer Screening 10/07/2026 Pap Smear 10/07/2026 10/07/2023, 03/30/2019 HPV/Cotest 10/07/2028 10/07/2023, 03/30/2019 Lipid Panel 11/21/2029 11/21/2024, 08/29/2023 DTaP/Tdap/Td Vaccines (2 - Td or Tdap) 09/04/2030 09/04/2020 RSV Patients and Patients Aged 60 years or older (1 - 1-dose 75+ series) 2044 Zoster Vaccines Completed 11/04/2020, 09/04/2020 Pneumococcal Vaccine: 50+ Years Completed 08/29/2023, 11/24/2017 HIV Screening Completed 11/21/2024, 1103/2023, 08/29/2023 Hepatitis C Screening Completed 11/21/2024 HIB [...] Procedure Name Priority Date/Time Associated Diagnosis Comments US RENAL BI Routine 12/06/2024 9:20 AM EST Nephrolithiasis CT ABDOMEN PELVIS W CONTRAST Routine 11/28/2024 [...] Recently Relevant to Health Maintenance Results * US RENAL BI (12/06/2024 9:20 AM EST) Anatomical Region Laterality Modality Abdomen Ultrasound 12/06/2024 9:20 AM EST Narrative 12/06/2024 9:21 AM EST ? [facility] ?[address] ?[place] [address] ? Ultrasound Report ? Signed ? Patient: Viry Bryant ?M ?? R#: [id number] ? : 1970 ?Acct:[id number] ? Age/Sex: 54 / F ?ADM Date: 12/05/24 ? Loc: HO.US ? Attending Dr: Meaghan Bhta DO ? Ordering Physician: Meaghan Bhat DO ?? Date of Service: 12/05/24 ?? Procedure(s): US renal BI ?? Accession Number(s): [id number] ? cc: Meaghan Bhat DO ? CLINICAL HISTORY: f u renal stones ? US Renal ? Comparison: CT/SR - CT ABDOMEN PELVIS W IV CON - 11/28/24 00:07 EST ? Findings: ?? Right kidney measures 10.5 x 5.3 x 5.0 cm in size. Echogenic stones within ?? the right kidney measuring up to 7 mm in size. No hydronephrosis. ? Left kidney measures 11.2 x 5.4 x 4.4 cm in size. Left kidney is of normal ?? echotexture without focal lesion, nephrolithiasis, hydronephrosis. ? IMPRESSION: ?? Nonobstructing right renal calculi. ? This document has been electronically signed by: Kenneth Walsh MD on ?? 12/06/2024 09:20:00 ? Dictated By: ?Kenneth Walsh MD ? Signed By: ?<Electronically signed by Kenneth Walsh MD in OV> ? 12/06/24920 ? DD/ 9 ? TD/TT: 12/06/24919 ? Fermentation Engineer: ? Procedure Note Ximenajimbo, Image - 12/06/[address] [address] Ultrasound Report Signed Patient: Keegan Bryant R#: [id number] : 1970Acct:[id number] Age/Sex: 54 / FADM Date: 12/05/24 Loc: HO.US Attending Dr: Meaghan Bhat DO Ordering Physician: Meaghan Bhat DO Date of Service: 12/05/24 Procedure(s): US renal BI Accession Number(s): [id number] cc: Meaghan Bhat DO CLINICAL HISTORY: f u renal stones US Renal Comparison: CT/SR - CT ABDOMEN PELVIS W IV CON - 11/28/24 00:07 EST Findings: Right kidney measures 10.5 x 5.3 x 5.0 cm in size. Echogenic stones within the right kidney measuring up to 7 mm in size. No hydronephrosis. Left kidney measures 11.2 x 5.4 x 4.4 cm in size. Left kidney is of normal echotexture without focal lesion, nephrolithiasis, hydronephrosis. IMPRESSION: Nonobstructing right renal calculi. This document has been electronically signed by: Kenneth Walsh MD on 12/06/2024 09:20:00 Dictated By: Kenneth Walsh MD Signed By: <Electronically signed by Kenneth Walsh MD in OV> 12/06/24920 DD/ 9 TD/TT: 12/06/24919 Fermentation Engineer: us Meaghan Bhat DO IMG US PROCEDURES Edited Res ult - Final * CT Abdomen Pelvis w/ Contrast (11/28/2024 12:47 AM EST) Anatomical Region Laterality Modality Body, Pelvis, Abdomen Computed T omography 11/28/2024 12:4 7 AM EST Narrative 11/28/2024 12:48 AM EST ? [facility] ?[address] ?[place] [address] ? CT Scan Report ? Signed ? Patient: Viry Bryant ?M ?? R#: [id number] ? : 1970 ?Acct:[id number] ? Age/Sex: 54 / F ?ADM Date: 11/27/24 ? Loc: HO.ED ? Attending Dr: ? Ordering Physician: Keith Lechuga ?? Date of Service: 11/28/24 ?? Procedure(s): CT abdomen pelvis w IV con ?? Accession Number(s): [id number] ? cc: Meaghan Bhat DO; Keith Lechuga ? Report Number: ?? [id number]: Total DLP = ??734.00 mGy-cm ? CLINICAL [...] in OV> ? 11/28/24 0048 ? DD/ ? TD/TT: 11/28/2446 ? Fermentation Engineer: ? Procedure Note Donrobbieter, Image - 11/28/[address] [place] [address] [address] Scan Report Signed Patient: Keegan Bryant R#: [id number] : 1970Acct:[id number] Age/Sex: 54 / FADM Date: 11/27/24 Loc: HO.ED Attending Dr: Ordering Physician: Keith Lechuga Date of Service: 11/28/24 Procedure(s): CT abdomen pelvis w IV con Accession Number(s): [id number] cc: Meaghan Bhat DO; Keith Lechuga Report Number: [id number]: Total DLP = 734.00 mGy-cm CLINICAL HISTORY: [...] MD in OV> 11/28/2447 DD/ TD/TT: 11/28/2446 Fermentation Engineer: [facility] External Provider IMG CT PROCEDURES Edited Result - Final * (ABNORMAL) CBC auto differential (11/27/2024 6:44 PM EST) White Blood Count 11.9(H) 4.8 - 10.8 X10*3/uL [facility] Red Blood Count 4.68 4.20 - 5.50 X10*6/uL [facility] Hemoglobin 13.0 12.0 - 16.0 g/dl [facility] Hematocrit 39.6 37.0 - 47.0 % [facility] Mean Corpuscular Volume 84.6 80.0 - 98.0 fL [facility] Mean Corpuscular Hemoglobin 27.8 27.0 - 33.0 pg [facility] Mean Corpuscular HGB Conc 32.8 31.0 - 35.0 g/dl [facility] Red Cell Distribution Width 13.8 11.0 - 16.0 % [facility] Platelet Count 358 160 - 400 X10*3/uL [facility] Mean Platelet Volume 8.6(L) 9.4 - 12.3 fL [facility] Neutrophils Percent Auto 61.0 45 - 73 % [facility] Imm Gran Pct Auto 0.3 0.0 - 0.4 % [facility] Lymphocytes Percent Auto 28.4 20 - 40 % [facility] Monocytes Percent Auto 7.7 2 - 11 % [facility] Eosinophils Percent Auto 2.0 0 - 4 % [facility] Basophils Percent Auto 0.6 0 - 2 % [facility] NRBC Pct Auto 0.0 0.0 - 0.2 /100WBC [facility] Neutrophils Absolute Auto 7.3 2.0 - 8.3 x10*3/uL [facility] Imm Gran Abs Auto 0.04(H) 0.00 - 0.03 X10*3/uL [facility] Lymphocytes Absolute Auto 3.4 1.2 - 4.9 X10*3/uL [facility] Monocytes Absolute Auto 0.9 0.1 - 1.2 X10*3/uL [facility] Eosinophils Absolute Auto 0.2 0.0 - 0.4 X10*3/uL [facility] Basophils Absolute Auto 0.1 0.0 - 0.2 X10*3/uL [facility] NRBC Abs Auto 0.000 0.0 - 0.012 X10*3/uL [facility] 11/27/2024 6:44 PM EST 11/27/2024 6:46 PM EST us Generic External Data Provider LAB BLOOD ORDERAB LES Final Result Performing Organization Address [facility]/ZIP Co de Phone Number [facility] [address] [place] [phone] * Magnesium (11/27/2024 6:44 PM EST) Magnesium 2.1 1.6 - 2.6 mg/dL [facility] 11/27/2024 6:44 PM EST 11/27/2024 6:46 PM EST Generic External Data Provider LAB BLOOD ORDERAB LES Final Result Performing Organization Address [facility] Co de Phone Number [facility] [address] [place] [address] [phone] * Lipase (11/27/2024 6:44 PM EST) Lipase 31 8 - 78 U/L [facility] 11/27/2024 6:44 PM EST 11/27/2024 6:46 PM EST us Generic External Data Provider LAB BLOOD ORDERAB LES Final Result [facility] [address] [place] [address] [phone] * Comprehensive Metabolic Panel (11/27/2024 6:44 PM EST) Sodium 143 135 - 145 mmol/L [facility] Potassium 4.2 3.3 - 5.1 mmol/L [facility] Chloride 105 96 - 108 mmol/L [facility] Carbon Dioxide 27 22 - 29 mmol/L [facility] Anion Gap 15 12 - 20 [facility] Urea Nitrogen (BUN) 11 9 - 16 mg/dL [facility] Creatinine, Serum 0.73 0.5 - 1.4 mg/dL [facility] Creatinine Clr Calc Pharmacy 90.0 [facility] Comment:Provided height and weight: 154.94 cm,92.079 kg.eGFR (calculated from the MDRD study equation) and eCrCl(calculated from the Cockcroft-Gault equation) are based ondifferent parameters and may not yield comparable results.If eCrCl result is absurd, please check patient'sheight/weight. Estimated Glomerular Filt Rate >60 [facility] Comment:Chronic Kidney Disea se: Estimated GFR < 60 mL/min/1.33k5Omvlnl Kidney Disease: Estimated GFR < 15 mL/min/1.73m2 Glucose 88 60 - 115 mg/dL [facility] Calcium 9.3 8.4 - 10.2 mg/dL [facility] Bilirubin, Total 0.4 0.0 - 1.0 mg/dL [facility] Aspartate Amino Transferase 17 5 - 31 U/L [facility] Alanine Aminotransferase 22 0 - 31 U/L [facility] Total Protein 7.9 6.5 - 8.0 g/dL [facility] Albumin Level 4.2 3.5 - 5.0 g/dL [facility] Alkaline Phosphatase 94 39 - 117 U/L [facility] 11/27/2024 6:44 PM EST 11/27/2024 6:46 PM EST us Generic External Data Provider LAB BLOOD ORDERAB LES Final Result Performing Organization Address [facility]/ZIP Co de Phone Number [facility] [address] [place] [phone] * Vitamin D, 25-Hydroxy, Total, Immunoassay (11/21/2024 11:33 AM EST) Vitamin D 25-OH Total 30.3 >30 ng/mL [facility] Comment:Health Based Referen ce Values*< 20 ng/mL [id number] ng/mL Insufficient> 30 ng/mL Sufficient*Ara CUETO. N [...] ORDERABLES Final R esult Performing Organization Address [facility]/ZIP Co de Phone Number [facility] [address] [place] [phone] * T-SPOT??.TB (11/21/2024 11:33 AM EST) T Spot TB Negative Negative [facility] Comment:A negative test resu lt does [...] as aquantitative test. TS PANEL A 0 [facility] TS PANEL B 0 [facility] Negative Control Passed [facility] Positive Control Passed [facility] Comment:For additional infor matying, please refer tohttp://education.[employer]/faq/VVY053(This link is being provided for informational/educational purposes only.)THIS TEST WAS PERFORMED AT:[employer]/[id number] [place] [address]PWLZAKVRAMÍREZ CROWLEY MD,PHD 11/21/2024 11:3 3 AM EST 11/21/2024 1:40 PM EST us Meaghan Bhat DO LAB BLOOD ORDERABLES Final R esult [facility] [address] [place] [phone] * Hepatitis C Antibody with Reflex to HCV, RNA, Quantitative, Real-Time PCR (11/21/2024 11:33 AM EST) Pathologist [facility] [place] Hepatitis C Antibody Nonreactive Nonreactive [facility] Comment:Antibodies to HCV no t detected; does not exclude early acuteHCV infection. Blood Venous blood specimen / Unknown 11/21/2024 11:33 AM EST 11/21/2024 1:40 PM EST Meaghan Bhat LAB BLOOD ORDERABLES Final R esult Performing Organization Address [facility] Co de Phone Number [facility] [address] [place] [phone] * Hepatitis A Antibody, Total (11/21/2024 11:33 AM EST) [facility] Hepatitis A Antibody IgG Nonreactive Nonreactive [facility] Blood Venous blood specimen / Unknown 11/21/2024 11:33 AM EST 11/21/2024 1:40 PM EST [facility] BLOOD ORDERABLES Final R esult Performing Organization Address [facility] Co de Phone Number [facility] [address] [place] [phone] * Chlamydia/N. Gonorrhoeae RNA, TMA, Urogenitial (11/21/2024 11:33 AM EST) [facility] CT PCR NOT DETECTED Not Detect. [facility] Comment:A not detected test result does [...] psychologicalconsequences. NG PCR NOT DETECTED Not Detect. [facility] Comment:A not detected test result does [...] AM EST 11/21/2024 1:24 PM EST Narrative [facility] - 11/21/2024 5:08 PM EST Urine Meaghan Bhat DO LAB MICROBIOLOGY - GENERAL O RDERABLES Final Result Performing Organization Address City/[facility]/ZIP Co de Phone Number [facility] [address] [place] [phone] * Hepatitis B surface antigen, EIA (11/21/2024 11:33 AM EST) Hepatitis B Surface Ag Negative Negative [facility] Blood Venous blood specimen / Unknown 11/21/2024 11:33 AM EST 11/21/2024 1:40 PM EST Meaghan Bhat DO LAB BLOOD ORDERABLES Final R esult Performing Organization Address [facility] Co de Phone Number [facility] [address] [place] [phone] * Hepatitis B Core Antibody, Total (11/21/2024 11:33 AM EST) Hepatitis B Core Antibody Nonreactive Nonreactive [facility] Blood Venous blood specimen / Unknown 11/21/2024 11:33 AM EST 11/21/2024 1:40 PM EST Meaghan Bhat DO LAB BLOOD ORDERABLES Final R esult Performing Organization Address [facility] Co de Phone Number [facility] [address] [place] [address] [phone] * RPR (Monitor) with Reflex to??Titer (11/21/2024 11:33 AM EST) RPR (Monitor) w/Refl Titer NON-REACTI VE NON-REACT MARISELA [facility] Comment:THIS TEST WAS PERFOR MED AT:[employer] [place] [id number] DELEON MD Rapid Plasma Reagin Ab Titer TNP [facility] Blood Venous blood specimen / Unknown 11/21/2024 11:33 AM EST 11/21/2024 1:40 PM EST Meaghan Bookersethcele BAKER LAB BLOOD ORDERABLES Final R es[facility] Performing Organization Address [facility] Co de Phone Number [facility] [address] [place] [phone] * HIV-1/2 Antigen and Antibodies, Fourth Generation, with Reflexes (11/21/2024 11:33 AM EST) HIV AB/AG Nonreactive Nonreactive [facility] Comment:HIV-1 p24 Ag and/or HIV-1/HIV-2 Ab not detected.A test result that is nonreactive does not exclude thepossibility of exposure to or infection with HIV-1 and/orHIV-2. Nonreactive results in this assay for individualswith prior exposure to HIV-1 and/or HIV-2 may be due toantigen and antibody levels that are below the limit ofdetection of this assay.The HYGIEIA HIV Ag/Ab Combo assay result andsupplemental assay results should be interpreted inconjunction with the patient's clinical presentation,history and other laboratory results. If the results areinconsistent with clinical evidence, additional testing issuggested to confirm the result. Blood Venous blood specimen / Unknown 11/21/2024 11:33 AM EST 11/21/2024 1:40 PM EST Meaghan Bookersethcele DO LAB BLOOD ORDERABLES Final R esult Performing Organization Address City/[facility] Co de Phone Number [facility] [address] [place] [phone] * Hepatitis B Surface Antibody, Qualitative (11/21/2024 11:33 AM EST) Pathologist [facility] [place] ~Hepatitis B Surface Antibody NONREACTIVE Nonreactive [facility] Comment:Nonreactive: < 8.00 mIU/mL Blood Venous blood specimen / Unknown 11/21/2024 11:33 AM EST 11/21/2024 1:40 PM EST Meaghan Perlita DO LAB BLOOD ORDERABLES Final R esult Performing Organization Address [facility] Co de Phone Number [facility] [address] [place] [phone] * CBC (11/21/2024 11:33 AM EST) Pathologist [facility] [place] White Blood Count 10.2 4.8 - 10.8 X10*3/uL [facility] Red Blood Count 5.04 4.20 - 5.50 X10*6/uL [facility] Hemoglobin 13.9 12.0 - 16.0 g/dl [facility] Hematocrit 43.4 37.0 - 47.0 % [facility] Mean Corpuscular Volume 86.1 80.0 - 98.0 fL [facility] Mean Corpuscular Hemoglobin 27.6 27.0 - 33.0 pg [facility] Mean Corpuscular HGB Conc 32.0 31.0 - 35.0 g/dl [facility] Red Cell Distribution Width 13.8 11.0 - 16.0 % [facility] Platelet Count 373 160 - 400 X10*3/uL [facility] Mean Platelet Volume 9.5 9.4 - 12.3 fL [facility] NRBC Pct Auto 0.0 0.0 - 0.2 /100WBC [facility] NRBC Abs Auto 0.000 0.0 - 0.012 X10*3/uL [facility] Blood Venous blood specimen / Unknown 11/21/2024 11:33 AM EST 11/21/2024 1:38 PM EST Meaghan Bhat DO LAB BLOOD ORDERABLES Final R esult Performing Organization Address City/[facility]/ZIP Co de Phone Number [facility] [address] [place] [phone] * TSH (11/21/2024 11:33 AM EST) Thyroid Stimulating Hormone 1.85 0.32 - 4.0 uIU/mL [facility] Comment:TSH 3rd Generation ( [facility]) Blood Venous blood specimen / Unknown 11/21/2024 11:33 AM EST 11/21/2024 1:40 PM EST Meaghan Bhat DO LAB BLOOD ORDERABLES Final R esult [facility] [address] [place] [phone] * T4, Free (11/21/2024 11:33 AM EST) Free T4 (Free Thyroxine) 1.04 0.71 - 1.85 ng/dL [facility] Blood Venous blood specimen / Unknown 11/21/2024 11:33 AM EST 11/21/2024 1:40 PM EST Meaghan Bhat DO LAB BLOOD ORDERABLES Final R esult Performing Organization Address [facility] Co de Phone Number [facility] [address] [place] [phone] * (ABNORMAL) Hemoglobin A1c (11/21/2024 11:33 AM EST) Hemoglobin A1c 6.1(H) <6.0 % [facility] Comment:Hemoglobin A1C Refer ence Range Adults: 4.8 - 6.0 % Non diabetic: < 6.0 % Goal: < 7.0 %Additional Action Suggested: > 8.0 %Note: Hemoglobin A1c results are invalid for patients with abnormal amounts of HbF. Blood transfusions may impact the HbA1c concentration in the patient sample. Estimated Average Glucose 128 mg/dL [facility] Comment:eAG = Estimated ave rage glucose which is %A1C expressed asaverage glucose, using the formula of the T2X-WneoydtAqzbolp Glucose study (ADAG), Diabetes Care, Vol.31,#8,May. 2007 Blood Venous blood specimen / Unknown 11/21/2024 11:33 AM EST 11/21/2024 1:38 PM EST us Meaghan Bhat DO LAB BLOOD ORDERABLES Final R esult Performing Organization Address City/[facility]/ZIP Co de Phone Number [facility] [address] [place] [address] [phone] * (ABNORMAL) Hepatic Function Panel (11/21/2024 11:33 AM EST) Bilirubin, Total 0.2 0.0 - 1.0 mg/dL [facility] Bilirubin, Direct <0.2 0.0 - 0.5 mg/dL [facility] Aspartate Amino Transferase 22 5 - 31 U/L [facility] Alanine Aminotransferase 27 0 - 31 U/L [facility] Total Protein 8.5(H) 6.5 - 8.0 g/dL [facility] Albumin Level 4.6 3.5 - 5.0 g/dL [facility] Alkaline Phosphatase 95 39 - 117 U/L [facility] Blood Venous blood specimen / Unknown 11/21/2024 11:33 AM EST 11/21/2024 1:40 PM EST Meaghan Bhat DO LAB BLOOD ORDERABLES Final R esult Performing Organization Address [facility] Co de Phone Number [facility] [address] [place] [address] [phone] * (ABNORMAL) Lipid Panel, Standard (11/21/2024 11:33 AM EST) Triglycerides 96 <150 mg/dL [facility] Comment:Desirable Triglyceri de: less than 150 mg/dLBorderline High Triglyceride 150-199 mg/dLHigh Triglyceride: 200-499 mg/dLVery High Triglyceride: greater than or equal to 5OO mg/dL Cholesterol 222(H) <200 mg/dL [facility] Comment:Desirable Cholestero l: less than 200 mg/dLBorderline High Cholesterol: 200-239 mg/dLHigh Cholesterol: greater than 239 mg/dL LDL Cholesterol Calculated 146(H) <100 mg/dL [facility] Comment:Desirable LDL: less than 100 mg/dLNear Optimal/Above Optimal LDL: 110- 129 mg/dLBorderline High LDL: 130-159 mg/dLHigh LDL: 160-189 mg/dLVery High LDL: greater than or equal to 190 mg/dL HDL Cholesterol 57 >40 mg/dL [facility] Comment:Desirable HDL: great er than 40 mg/dL Note: This HDL assay may give artificially low results in patients with liver disease. Blood Venous blood specimen / Unknown 11/21/2024 11:33 AM EST 11/21/2024 1:40 PM EST Meaghan Bhat DO LAB BLOOD ORDERABLES Final R esult Performing Organization Address City/[facility]/ZIP Co de Phone Number [facility] [address] [place] [address] [phone] * (ABNORMAL) Basic Metabolic Panel (11/21/2024 11:33 AM EST) Sodium 138 135 - 145 mmol/L [facility] Potassium 3.9 3.3 - 5.1 mmol/L [facility] Chloride 105 96 - 108 mmol/L [facility] Carbon Dioxide 26 22 - 29 mmol/L [facility] Anion Gap 11(L) 12 - 20 [facility] Urea Nitrogen (BUN) 13 9 - 16 mg/dL [facility] Creatinine, Serum 0.66 0.5 - 1.4 mg/dL [facility] Estimated Glomerular Filt Rate >60 [facility] Comment:Chronic Kidney Disea se: Estimated GFR < 60 mL/min/1.02x6Hzsztr Kidney Disease: Estimated GFR < 15 mL/min/1.73m2 Glucose 84 60 - 115 mg/dL [facility] Calcium 10.1 8.4 - 10.2 mg/dL [facility] Blood Venous blood specimen / Unknown 11/21/2024 11:33 AM EST 11/21/2024 1:40 PM EST Meaghan Bhat DO LAB BLOOD ORDERABLES Final R esult [facility] [address] [place] [phone] * Hm Mammography (11/05/2024 11:26 AM EST) Anatomical Region Laterality Modality Other Historical Provider HEALTH MAINTENANCE Final Result * HPV mRNA E6/E7 w/Reflex to HPV Genotypes 16, 18/45 (10/07/2023 1:09 PM EST) HPV nRNA E6/E7 Not Detected Not Detected [facility] Comment:Methodology: Transcr iption-Mediated AmplificationThis assay detects E6/E7 viral messenger RNA (mRNA) from 14high-risk HPV types (16,18,31,33,35,39,45,51,52,56,58,59,66,68).Cervical sources are required for HPV testing.If a vaginal source from a patient who has had atotal hysterectomy with removal of cervix wassubmitted, please contact the testing laboratoryfor alternative testing options.For additional information, please refer [email or web address].Ouroboros/faq/BQC174d4(This link if provided for information/educational purposes only.)THIS TEST WAS PERFORMED AT:[employer] [place] [phone] DELEON MD HPV mRNA E6/E7 [facility] HPV 16 RNA TNP [facility] HPV 18/45 RNA [facility] 10/07/2023 1:09 PM EST 10/10/2023 11:30 AM EST Meaghan Bhat DO LAB CYTOLOGY ORDERABLES Shanita latif Result Performing Organization Address City/State/[facility] Co de Phone Number [facility] [address] [place] [address] [phone] * Pap Smear (10/07/2023 1:09 PM EST) 10/07/2023 1:09 PM EST 10/10/2023 11:30 AM EST Narrative [facility] - 10/19/2023 1:00 PM EST ----- ------- Name: Viry Bryant ? Age/Sex: 52/F ? : 1970 Unit#: [id number] ?? Attend Meaghan Dominguez DO ?Re10/07/23 ?Status: DEP REF ? Location: [facility] ? Disch: ? ----- ------- SPEC : [id number] ?RECD: 10/10/23 ? STATUS: ??SOUT ? REQ NUM: [id number] ? GERONIMO: 10/07/23-2329 ? SUBM DR: Meaghan Bhat DO ? ENTERED: ??10/10/232 ?SP TYPE: Pap Smr ?OTHR DR: ? ORDERED: ??Pap Smear ? Interpretation ?? Satisfactory for evaluation. ?? Negative for intraepithelial lesion or malignancy. ?HPV mRNA E6/E7: ?NOT DETECTED ? This assay detects E6/E7 viral messenger RNA (mRNA) from 14 high-risk HPV types (16, 18, ?? 31, 33, 35, 39, 45, 51, 52, 56, 58, 59, 66, 68) ?? [facility] [place] ??See reference laboratory ?? portion of the EMR for entire report. ?Clinical Information LMP: Postmenopausal Previous PAP test: Unknown date, WNL ? Material Received ?? ThinPrep-Cervical ----- ------- Signed (signature on file) MEHNAZ Yadav (ASCP) 10/19/23 1300 ? ----- ------- ? END OF REPORT ? us Meaghan Bhat DO LAB CYTOLOGY ORDERABLES Shanita latif Result [facility] [address] [place] [phone] from Last 3 Months or Most Recently Relevant to Health Maintenance [facility] Care Teams Nuclear Unit Operator Relationship Specialty Start Date End Date Meaghan Bhat DO [address] [place] [phone] PCP - General Family Medicine 02/18/20 Ab Montes FlaggerMachine Puller 11/26/24
--- OUTSIDE RECORDS SUMMARY | 2024-12-07 10:45 | XMS_ITS | Encounter Summary ---
Author Organization [employer] Address [address] [facility] 7t [place] [address] Care Team Providers Care Environmental Web Crawler Name Role Phone Meaghan Bhat DO Primary Care Provider + [phone] Reason for Visit * Reason Comments Pre-visit Planning SDOH screening negat david and tobacco screening negative Encounter Details Date Type Department Care Team (Late st Contact Info) Description 11/09/2024 Patient Outreach [facility] [address] [place], [place] [phone] Meaghan Bhat DO [address] [place], [place] [phone] Pre-visit Planning (SDOH screening negative and tobacco [...] documented as of this encounter Care Teams Environmental Web Crawler Relationship Specialty Start Date End Date Meaghan Bhat DO [address] [place] [address] PCP - General Family Medicine 02/18/20 documented as of this encounter
--- OUTSIDE RECORDS SUMMARY | 2024-12-07 10:45 | XMS_ITS | Encounter Summary ---
Author Organization [employer] Address [address] [facility] 7t [place] [address] Care Team Providers Care Felling Bucking Supervisor Name Role Phone Meaghan Bhat DO Primary Care Provider + [phone] Reason for Visit * Reason Onset Date Comments Results 11/30/2024 Encounter Details Date Type Department Care Team ([facility] st Contact Info) Description 11/30/2024 Telephone [facility] [address] [place], [place] [phone] Celina Brito, JONATHAN [address] [place] [address] Results Social History Tobacco Use Types Packs/Day [...] worsening of pre-diabetes. TC placed to patient [phone] via [employer] (GoSave #[id number]) to inform of above message.Patient verbalized understanding [...] documented as of this encounter Care Teams Felling Bucking Supervisor Relationship Specialty Start Date End Date Meaghan Bhat DO [address] [place] [phone] PCP - General Family Medicine 02/18/20 Ab Montes Inside Sales Account ExecutiveEmergency Preparedness Manager 11/26/24 documented as of this encounter
--- OUTSIDE RECORDS SUMMARY | 2024-12-07 10:45 | XMS_ITS | Encounter Summary ---
Author Organization [employer] Address [address] [facility] [address] [place] [address] Care Team Providers Care Transverse Abdominal Muscle Nurse Name Role Phone Meaghan Bhat DO Primary Care Provider + [phone] Encounter Details Date Type Department Care Team (Late st Contact Info) Description 11/03/2023 Orders Only [facility] [address] [place], [place] [phone] ProviderDeb MD Social History Tobacco Use Types [...] documented as of this encounter Care Teams Transverse Abdominal Muscle Nurse Relationship Specialty Start Date End Date Meaghan Bhat DO [address] [place] [address] PCP - General Family Medicine 02/18/20 Ab Montes Stitcher FeederMusic Minister 11/26/24 documented as of this encounter
--- OUTSIDE RECORDS SUMMARY | 2024-12-07 10:45 | XMS_ITS | Encounter Summary ---
Author Organization [employer] Address [address] [facility] [address] 7[address] [place] [address] Care Team Providers Care Advanced Manufacturing Vice President Name Role Phone Meaghan Bhat DO Primary Care Provider + [phone] Reason for Visit * Reason Onset Date Comments Breast US order 11/07/2024 Encounter Details Date Type Department Care Team (Late st Contact Info) Description 11/07/2024 Telephone [facility] [address] [place], [place] [phone] Celina Brito, JONATHAN [address] [place] [address] Breast US order Social History Tobacco Use [...] EST RN received breast US order from [facility] for 05/06/25 at 8am. PCP has signed and RN has faxed to [phone], confirmation page recieved. documented in this encounter Plan of Treatment Not on file documented as of this encounter Visit Diagnoses Not on filedocumented in this encounter Additional Health Concerns Assessment Noted Time PHQ-9 Depression Total Score: 2 11/16/19 24 10:21 AM EST documented as of this encounter Care Teams Advanced Manufacturing Vice President Relationship Specialty Start Date End Date Meaghan Bhat DO [address] [place] [address] PCP - General Family Medicine 02/18/20 documented as of this encounter
--- OUTSIDE RECORDS SUMMARY | 2024-12-07 10:45 | XMS_ITS | Encounter Summary ---
Author Organization [employer] Address [address] [facility] 7[address] [place] [address] Care Team Providers Care Skimmer Name Role Phone Meaghan Bhat DO Primary Care Provider + [phone] Reason for Visit * Reason Onset Date Comments Chart Prep 12/06/2024 Encounter Details Date Type Department Care Team ([facility] st Contact Info) Description 12/06/2024 Telephone [facility] [address] [place], [place] [phone] chey Sarika [place] Chart Prep Social History Tobacco Use Types Packs/Day Years [...] encounter Miscellaneous Notes * Telephone Encounter - Sarika Perez [place] - 12/06/2024 10:33 AM EST Chart Prep Labs: done Images: done Vaccines due: Covid, Hep B, Flu Referrals: Gastro pending appointment Screenings: colonoscopy , Diagnostic breast imaging Overdue care gaps: Sbirt documented in this encounter Plan of Treatment Not on file documented as of this encounter Visit Diagnoses Not on filedocumented in this encounter Additional Health Concerns Assessment Noted Time PHQ-9 Depression Total Score: 6 11/21/19 25 9:42 AM EST documented as of this encounter Care Teams Skimmer Relationship Specialty Start Date End Date Meaghan Bhat DO [address] [place] [address] PCP - General Family Medicine 02/18/20 Ab Montes Motorized Squad LieutenantSubway Car Repairer 11/26/24 documented as of this encounter
--- OUTSIDE RECORDS SUMMARY | 2024-12-07 10:45 | XMS_ITS | Encounter Summary ---
Author Organization [employer] Address [address] 7[address] [place] [address] Care Team Providers Care Teacher Nursery School Name Role Phone Meaghan Bhat DO Primary Care Provider + [phone] Encounter Details Date Type Department Care Team ([facility] st Contact Info) Description 12/03/2024 Telephone [facility] MEDICINE [address] [place], [place] [phone] Caitlin Roca, JONATHAN [address] [place] [address] Social History Tobacco Use Types Packs/Day Years [...] 12/03/2024 10:10 AM EST Pt evaluated in [facility] ED 11/27/24 Dx: Diverticulitis. Pt was discharged home in stable condition with recommendation for clear liquid diet x 2-3 days and to take antibiotics rx in ED if pain worsens. T/Digital Account Supervisor pt for status check via S Commercial Real Estate Attorney #[id number]. No answer, v/m left to return call to Red team nurses. documented in this encounter Plan of Treatment Not on file documented as of this encounter Visit Diagnoses Not on filedocumented in this encounter Additional Health Concerns Assessment Noted Time PHQ-9 Depression Total Score: 6 11/21/19 9:42 AM EST documented as of this encounter Care Teams Teacher Nursery School Relationship Specialty Start Date End Date Meaghan Bhat DO [address] [place] [address] PCP - General Family Medicine 02/18/20 Ab Montes Instrument Technician ApprenticeBaby Doctor 11/26/24 documented as of this encounter
--- OUTSIDE RECORDS SUMMARY | 2024-12-07 10:45 | XMS_ITS | Encounter Summary ---
Author Organization [employer] Address [address] [facility] 7t [place] [address] Care Team Providers Care Skill Labor Name Role Phone Meaghan Bhat DO Primary Care Provider + [phone] Reason for Visit * Reason Comments Transition Of Care (Tcm) Encounter Details Date Type Department Care Team ([facility] st Contact Info) Description 11/28/2024 Patient Outreach [facility] MEDICINE [address] [place], [place] [phone] Meaghan Bhat DO [address] [place], [place] [phone] Transition Of Care (Tcm) Social History Tobacco [...] PM EST Hospital Discharges and Admission for [facility] Type of Visit: Emergency Department Date of Admission/Visit: 11/27/24 Date of Discharge: 11/28/24 Facility: [facility] Diagnosis: CT SCAN Disposition: Discharged Home Follow-Up Actions Follow-Up Needed: None/self-monitoring Follow-Up Outcome: Spoke to Patient Initial Contact Date: 11/29/24 Patient Contacted: Yes Patient Status: Improved Call placed to Viry Marti for ER follow up. No plastics and composites inspector needed as this conventional underwriter speaks Slovenian. Patient reports started rx for Augmentin as prescribed and no further episodes of bloody stools. Pt still having mild cramping but not severe pain. Pt agrees to complete abx and returncall if sx worsen or fail to fully resolves. Reviewed ER precautions and reasons to call back. The full discharge summary is Is available under media scanned document Review Flowsheet [facility] Transition of Care Documentation Type of Visit Date of Admission/Visit Date of Discharge Facility Diagnosis Disposition 11/28/2024 3:10 PM Emergency Department 11/27/2024 11/28/[address] [facility] [address] SCAN Discharged Home 11/29/2024 11:00 AM Emergency Department 11/27/2024 11/28/[address] [facility] [address] SCAN Discharged Home Recent Visits Date Type Provider Dept 11/27/24 Office Visit Renetta Frey MD [facility] 11/21/24 Office Visit Meaghan Bhat DO [facility] 05/04/24 Office Visit Meaghan Bhat DO [facility] 03/16/24 Office Visit Nicol Spear MD [facility] 02/15/24 Office Visit Meaghan Bhat DO [facility] Showing recent visits within past 365 [...] documented as of this encounter Care Teams Skill Labor Relationship Specialty Start Date End Date Meaghan Bhat DO [address] [place] [address] PCP - General Family Medicine 02/18/20 Ab Montes Day Camp CounselorCt Tech 11/26/24 documented as of this encounter
--- OUTSIDE RECORDS SUMMARY | 2024-12-07 10:45 | XMS_ITS | Encounter Summary ---
Author Organization [employer] [facility] Address [address] [facility] 7t [place] [address] Care Team Providers Care Field Cane Scale Clerk Name Role Phone Meaghan Bhat DO Primary Care Provider [phone] Encounter Details Date Type Department Care Team [...] on filedocumented in this encounter Care Teams Field Cane Scale Clerk Relationship Specialty Start Date End Date Meaghan Bhat DO [address] [place] [phone] PCP - General Family Medicine 02/18/20 Ab Montes Interactive Multimedia DesignerField Marketing Specialist 11/26/24 documented as of this encounter
--- OUTSIDE RECORDS SUMMARY | 2024-12-07 10:45 | XMS_ITS | Encounter Summary ---
Author Organization [employer] Address [address] [facility] [place] [address] Care Team Providers Care Apprentice Embalmer Name Role Phone Meaghan Bhat DO Primary Care Provider + [phone] Reason for Visit * Reason Onset Date Comments Order(s) 12/07/2024 Encounter Details Date Type Department Care Team ([facility] st Contact Info) Description 12/07/2024 Telephone [facility]INE [address] [place], [place] [phone] Meaghan Bhat DO [address] [place], [place] [phone] Order(s) Social History Tobacco Use Types Packs/Day Years [...] encounter Miscellaneous Notes * Telephone Encounter - Ailin Parker NP - 12/07/2024 10:37 AM EST Okay to give order for alternative thank you * Telephone Encounter - Bing Patterson RN - 12/07/2024 9:41 AM EST TC x 3 placed to Zaynab with [facility] regarding request for an order to substitute a diet regarding pt's diverticulitis. Call disconnected x2. Zaynab states the pt receives breakfast and lunch from them and it can cause flare up of diverticulitis. Zaynab is requesting an order from provider that theycan provide alternative lunch that will cater to dx of diverticulitis. Message forwarded to provider to review and advise. * Telephone Encounter - Lorenzo Mcnamara - 12/07/2024 9:11 AM EST Tc from Zaynab with [facility] requesting an order to Substitute a diet regarding pt's diverticulitis. If any questions you can contact Zaynab at [phone]. documented in this encounter Plan of Treatment Not on file documented as of this encounter Visit Diagnoses Not on filedocumented in this encounter Additional Health Concerns Assessment Noted Time PHQ-9 Depression Total Score: 6 11/21/19 9:42 AM EST documented as of this encounter Care Teams Apprentice Embalmer Relationship Specialty Start Date End Date Meaghan Bhat DO [address] [place] [address] PCP - General Family Medicine 02/18/20 Ab Montes Bearing Press Machine OperatorSchool Bus Driver 11/26/24 documented as of this encounter
--- OUTSIDE RECORDS SUMMARY | 2024-12-07 10:45 | XMS_ITS | Encounter Summary ---
Author Organization [employer] Address [address] [facility] 7t [place] [address] Care Team Providers Care Transmitter Supervisor Name Role Phone Meaghan Bhat DO Primary Care Provider [phone] Reason for Referral * Consultation (Routine) - Pending Review Specialty Diagnoses / Procedures Referred By Ana calvillo Referred To Contact Gastroenterology Diagnoses Diverticulitis Ailin Parker NP [address] [place] [address] Phone: tel: fax: Referral ID Status Reason Start Date Expiration Date Visits Requested Visits Authorized [id number] Pending Review Specialty Services Required 12/07/2024 12/07/2025 1 1 Encounter Details Date Type Department Care Team (Latest Contact Info) Description 12/07/2024 9:30 AM EST Office Visit [facility] [address] [place], [place] [phone] Ailin Parker NP [address] [place], [place] [phone] Diverticulitis (Primary Dx); Daily nausea; Diarrhea of infectious origin Social History Tobacco Use Types Packs/Day Years Used Date Smoking Tobacco: Never Passive Smoke Exposure: Never Smokeless Tobacco: Never Depression Answer Date Recorded Patient Health Questionnaire-9 Score 6 11/21/2024 Patient Health Questionnaire-9 Score 6 11/21/2024 Last PHQ-9: Questionnaire Data Not on file 0 11/21/2024 Housing Stability Answer Date Recorded What is your housing situation today? I have osman sing 08/19/[address] you li [...] Mass Index 37.45 12/07/2024 9:25 AM EST documented in this encounter Plan of Treatment Scheduled Orders Name Type Priority Associated Diagnoses Orde r Schedule CBC auto differential Lab Routine Diarrhea of infectious origin Expected: 12/07/2024 (Approximate), Expires: 12/07/2025 Comprehensive Metabolic Panel Lab Routine Diarrhea of infectious origin Expected: 12/07/2024 (Approximate), Expires: 12/07/2025 Clostridioides difficile Toxins A and B, EIA Microbiology Routine Diarrhea of infectious origin Expected: 12/07/2024 (Approximate), Expires: 12/07/2025 Scheduled Referrals Name Type Priority Associated Diagnoses Order Schedule Referral to Gastroenterology Outpatient Referral Routine Diverticulitis Expected: 12/07/2024 (Approximate), Expires: 12/07/2025 documented as of this encounter Visit Diagnoses Diagnosis Diverticulitis- Primary Diverticulitis of colon (without mention of hemorrhage) Daily nausea Diarrhea of infectious origin Diarrhea of presumed infectious origin documented in this encounter Additional Health Concerns Assessment Noted Time PHQ-9 Depression Total Score: 6 11/21/19 9:42 AM EST documented as of this encounter Care Teams Transmitter Supervisor Relationship Specialty Start Date End Date Meaghan Bhat DO [address] [place] [address] PCP - General Family Medicine 02/18/20 Ab Montes Senior Energy Market CoordinatorUmbrella Cutter 11/26/24 documented as of this encounter
--- OUTSIDE RECORDS SUMMARY | 2024-12-07 10:45 | XMS_ITS | Encounter Summary ---
Author Organization [employer] Address [address] [facility] 7t [place] [address] Care Team Providers Care Pocketed Spring Machine Operator Name Role Phone Meaghan Bhat DO Primary Care Provider + [phone] Reason for Referral * Imaging (Routine) - Closed Specialty Diagnoses / Procedures Referred By Contac t Referred To Contact Radiology Diagnoses Nephrolithiasis Procedures US RENAL BI Meaghan Bhat DO [address] [place] [address] Phone: tel: fax: [address] Phone: tel: fax: Referral ID Status Reason Start Date Expiration Date Visits Re quested Visits Authorized [id number] Closed 11/21/2024 11/21/2025 1 1 * Consultation (Routine) - Authorized Specialty Diagnoses / Procedures Referred By Contac t Referred To Contact Family Medicine Diagnoses Skin lesions Meaghan Bhat DO [address] [place] [address] Phone: tel: fax: Referral ID Status Reason Start Date Expiration Date Visits Requested Visits Authorized [id number] Authorized Specialty Services Required 11/21/2024 11/21/2025 1 1 * Hospital - Outpatient (Routine) - Authorized Specialty Diagnoses / Procedures Referred By Ana calvillo Referred To Contact Diagnoses Sleep-disordered breathing Procedures Polysomnography Meaghan Bhat DO [address] [place] [address] Phone: tel: fax: [facility] Referral ID Status Reason Start Date Expiration Date V isits Requested Visits Authorized [id number] Authorized 11/21/2024 11/21/2025 1 1 * Consultation (Urgent) - Authorized Specialty Diagnoses / Procedures Referred By Ana calvillo Referred To Contact Pain Medicine Diagnoses Chronic bilateral low back pain with sciatica, sciatica laterality unspecified Meaghan Bhat DO [address] [place], [place] Phone: tel: fax: [facility] [place] [address] [place] [address] 2nd Floor [place], [place] Phone: tel: fax: Referral ID Status Reason Start Date Expiration Date Visits Requested Visits Authorized [id number] Authorized Specialty Services Required 11/22/2024 11/22/2025 6 6 * Consultation (Urgent) - Authorized Specialty Diagnoses / Procedures Referred By Ana calvillo Referred To Contact Breast Surgery Diagnoses Abnormal mammogram of left [place] [address] Phone: tel: fax: [facility] [address] [facility] 3rd Floor [address] [place], [place] Phone: tel: fax: Referral ID Status Reason Start Date Expiration Date Visits Requested Visits Authorized [id number] Authorized Specialty Services Required 11/22/2024 11/22/2025 6 6 Encounter Details Date Type Department Care Team (Late st Contact Info) Description 11/21/2024 9:30 AM EST Office Visit [facility] MED[facility]INE [address] [facility] [place] [address] Meaghan Bhat DO [address] [facility] [place] [address] Routine history and physical examination of adult [...] She had eye exam in JUL at [facility]. She was told that she had small [...] a 22 y/o daughter, who is her PIPE TURNER, and 14 y/o son. She is not [...] breast surgeon for eval BMI 38.0-38.9,adult -encouraged [id number] 5 Servings of fruit and vegetables each [...] Disp: 60 tablet, Rfl: 3 Scribe Attestation: I, Zach Obrien, am serving as a scribe to document services personally performed by Meaghan Larose, based on the patient's response to questions by provider and provider's statements to me. Physicians Attestation: I, Meaghan Bhat DO, have reviewed the information by the scribe, Zach Obrien, for accuracy and agree with its content. documented in this encounter Plan of Treatment Scheduled Orders Name Type Priority Associated Diagnoses Orde r Schedule Polysomnography Sleep Center Routine Sleep-disordered breathing Expected: 11/21/2024 (Approximate), Expires: 11/21/2025 Scheduled Referrals Name Type Priority Associated Diagnoses Orde r Schedule Referral to Breast Surgery Outpatient Referral Urgent Abnormal mammogram of left breast Expected: 11/21/2024 (Approximate), Expires: 11/21/2025 Referral to Pain Medicine Outpatient Referral Urgent Chronic bilateral low back pain with sciatica, sciatica laterality unspecified Expected: 11/21/2024 (Approximate), Expires: 11/21/2025 Referral to [facility] Derm Skin Adult Outpatient Referral Routine Skin lesions Expected: 11/21/2024 (Approximate), Expires: 11/21/2025 documented as of this encounter Procedures Procedure Name Priority Date/Time Associated Diagnosis Comments US RENAL BI Routine 12/06/2024 9:20 AM EST Nephrolithiasis T-SPOT(R).TB Routine 11/21/2024 11:33 AM EST Routine history and physical examination of adult documented in this encounter Results * US RENAL BI (12/06/2024 9:20 AM EST) Anatomical Region Laterality Modality Abdomen Ultrasound 12/06/2024 9:20 AM EST Narrative 12/06/2024 9:21 AM EST ? [facility] ?[address] ?[place] [address] ? Ultrasound Report ? Signed ? Patient: Lavelle Marti,Viry ?M ?? R#: [id number] ? : 1970 ?Acct:[id number] ? Age/Sex: 54 / F ?ADM Date: 12/05/24 ? Loc: HO.US ? Attending Dr: Meaghan Bhat DO ? Ordering Physician: Meaghan Bhat DO ?? Date of Service: 12/05/24 ?? Procedure(s): US renal BI ?? Accession Number(s): [id number] ? cc: Meaghan Bhat DO ? CLINICAL [...] ? DD/ 9 ? TD/TT: 12/06/24919 ? Nuclear Medical Technologist: ? Procedure Note Mell, Image - 12/06/2024 [place] [address] Ultrasound Report Signed Patient: Keegan Bryant R#: [id number] : 1970Acct:[id number] Age/Sex: 54 / FADM Date: 12/05/24 Loc: HO.US Attending Dr: Meaghan Bhat DO Ordering Physician: Meaghan Bhat DO Date of Service: 12/05/24 Procedure(s): US renal BI Accession Number(s): [id number] cc: Meaghan Bhat DO CLINICAL HISTORY: f [...] in OV> 12/06/24920 DD/ 9 TD/TT: 12/06/24919 Nuclear Medical Technologist: us Meaghan Bhat DO IMG US PROCEDURES Edited Res ult - Final * T-SPOT??.TB (11/21/2024 11:33 AM EST) T [...] [facility] Negative Control Passed [facility] Positive Control Passed [facility] Comment:For additional infor emi, please refer tohttp://education.[employer] [place]/faq/URM446(This link is being provided for informational/educational purposes only.)THIS TEST WAS PERFORMED AT:[employer]/[id number] [place] [address]UKJJUNJ W. MASON,MD,PHD 11/21/2024 11:3 3 AM EST 11/21/2024 1:40 PM EST Meaghan Bhat DO LAB BLOOD ORDERABLES Final R esult [facility] [address] [place] [phone] documented in this encounter Visit Diagnoses [...] documented as of this encounter Care Teams Pocketed Spring Machine Operator Relationship Specialty Start Date End Date Meaghan Bhat DO [address] [place] [address] PCP - General Family Medicine 02/18/20 documented as of this encounter
--- OUTSIDE RECORDS SUMMARY | 2024-12-07 10:45 | XMS_ITS | Encounter Summary ---
Author Organization [employer] Address [address] [facility] [address] 7t [place] [address] Care Team Providers Care Disc Recordist Name Role Phone Meaghan Bhat DO Primary Care Provider + [phone] Reason for Visit * Reason Onset Date Comments Nurse Triage 12/05/2024 Encounter Details Date Type Department Care Team (Late st Contact Info) Description 12/05/2024 Telephone [facility] [address] [place], [place] [phone] Meaghan Bhat DO [address] [place], [place] [phone] Nurse Triage Social History Tobacco Use Types [...] RN - 12/05/2024 11:10 AM EST No construction estimator needed as this automobile service writer speaks Greek. Reports having lower abodminal pain x 1 week. Per pt seen at [facility] ER for abdominal pain. Pt given dx [...] 12/07/2024 9:30 AM Ailin Parker NP MEDICINE [facility] Unable to verify insurance. MIIS not [...] become worse * Telephone Encounter - Ibeth Thakkarkary Louie - 12/05/2024 10:27 AM EST Symptom: Abdominal Pain - Female - Not Outcome: Schedule an appointment to be seen within 24 hours Reason: Caller denied all higher acuity questions The caller accepted this outcome. [phone] (uzbek) documented in this encounter Plan of Treatment Not on file documented as of this encounter Visit Diagnoses Not on filedocumented in this encounter Additional Health Concerns Assessment Noted Time PHQ-9 Depression Total Score: 6 11/21/19 9:42 AM EST documented as of this encounter Care Teams Disc Recordist Relationship Specialty Start Date End Date Meaghan Bhat DO [address] [place] [address] PCP - General Family Medicine 02/18/20 Ab Montes Break Off WorkerTechnology Specialist 11/26/24 documented as of this encounter
--- OUTSIDE RECORDS SUMMARY | 2024-12-07 10:45 | XMS_ITS | Encounter Summary ---
Author Organization [employer] Address [address] [facility] [address] 7t [place] [address] Care Team Providers Care Wood Technologist Name Role Phone Meaghan Bhat DO Primary Care Provider + [phone] Encounter Details Date Type Department Care Team (Latest Contact Info) Description 12/07/2024 Travel Social History Tobacco Use Types Packs/Day Years Used Date Smoking Tobacco: Never Passive Smoke Exposure: Never Smokeless Tobacco: Never Depression Answer Date Recorded Patient Health Questionnaire-9 Score 6 11/21/2024 Patient Health Questionnaire-9 Score 6 11/21/2024 Last PHQ-9: Questionnaire Data Not on file 0 11/21/2024 Housing Stability Answer Date Recorded What is your housing situation today? I have omsan cartagena 08/19/[address] you [...] documented as of this encounter Care Teams Wood Technologist Relationship Specialty Start Date End Date Meaghan Bhat DO [address] [place] [address] PCP - General Family Medicine 02/18/20 Ab Montes Fountain AttendantToll Line Inspector 11/26/24 documented as of this encounter
--- OUTSIDE RECORDS SUMMARY | 2024-12-07 10:46 | XMS_ITS | Encounter Summary ---
Author Organization [employer] Address [address] [facility] [address] 7t [place] [address] Care Team Providers Care Nuclear Powerplant Supervisor Name Role Phone Meaghan Bhat DO Primary Care Provider + [phone] Reason for Visit * Reason Onset Date Comments Nurse Triage 11/27/2024 Encounter Details Date Type Department Care Team (Late st Contact Info) Description 11/27/2024 Telephone [facility] MEDICINE [address] [place], [place] [phone] Meaghan Bhat DO [address] [place], [place] [phone] Nurse Triage Social History Tobacco Use Types [...] Notes * Telephone Encounter - Pratima Arrieta, CARBON PASTE MIXER OPERATOR - 11/27/2024 10:59 AM EST Triage call returned with BLS #[id number] Vel. Patient reports that she had lower [...] Team appts. Available at time of call. [facility] Walk In Center hours and availability providedfor [...] normal) The caller accepted this outcome. ( Latvian speaker) documented in this encounter Plan of Treatment Not on file documented as of this encounter Visit Diagnoses Not on filedocumented in this encounter Additional Health Concerns Assessment Noted Time PHQ-9 Depression Total Score: 6 11/21/19 9:42 AM EST documented as of this encounter Care Teams Nuclear Powerplant Supervisor Relationship Specialty Start Date End Date Meaghan Bhat DO [address] [place] [address] PCP - General Family Medicine 02/18/20 Ab Montes Custody OfficerSalesperson Pets And Pet Supplies 11/26/24 documented as of this encounter
--- OUTSIDE RECORDS SUMMARY | 2024-12-07 10:46 | XMS_ITS | Encounter Summary ---
Author Organization [employer] Address [address] [facility] [address] 7t [place] [address] Care Team Providers Care Medical Record Assistant Name Role Phone Meaghan Bhat DO Primary Care Provider + [phone] Reason for Visit * Reason Comments Care Coordination ICP Care Plan Encounter Details Date Type Department Care Team ([facility] st Contact Info) Description 11/26/2024 Telephone [facility] MED & PEDS [address] [place], [place] [phone] Meaghan Bhat DO [address] [place] [address] Care Coordination (ICP Care Plan ) Social [...] has received and reviewed Care Plan from [facility]: Dredge Mate: Ab Montes Contact Information: [phone] Care Plan scanned into patient's EHR and notification sent to PCP. documented in this encounter Plan of Treatment Not on file documented as of this encounter Visit Diagnoses Not on filedocumented in this encounter Additional Health Concerns Assessment Noted Time PHQ-9 Depression Total Score: 6 11/21/19 25 9:42 AM EST documented as of this encounter Care Teams Medical Record Assistant Relationship Specialty Start Date End Date Meaghan Bhat DO [address] [place] [address] PCP - General Family Medicine 02/18/20 Ab Montes Data Warehouse DeveloperCylinder Tester 11/26/24 documented as of this encounter
--- OUTSIDE RECORDS SUMMARY | 2024-12-07 10:46 | XMS_ITS | Encounter Summary ---
Author Organization [employer] Address [address] [facility] [address] 7t [place] [address] Care Team Providers Care Transit Clerk Name Role Phone Meaghan Bhat DO Primary Care Provider + [phone] Encounter Details Date Type Department Care Team (Late st Contact Info) Description 05/14/2024 Orders Only [facility] MEDICINE [address] [place], [place] [phone] ProviderDeb MD Social History Tobacco Use Types [...] t he electric, gas, oil or water [employer] threatened to shut off services in your [...] [address] ?[place] [address] ?XRay Report ? Signed ? Patient: Viry Bryant ?M ?? R#: [id number] ? : 1970 ?Acct:[id number] ? Age/Sex: 53 / F ?ADM Date: 05/23/24 ? Loc: HO.HOSX ? Attending Dr: Melissa Leyva PA-C ? Ordering Physician: Melissa Leyva PA-C ?? Date of Service: 05/23/24 ?? Procedure(s): XR knee RT 1V ?? Accession Number(s): [id number] ? cc: Meaghan Bhat DO; Melissa Leyva [...] 1701 ? DD/ 1003 ? TD/TT: ? Electromechanical Equipment Assembler: BEN ? Procedure Note Donmiguel a, Image - 06/11/2024 [facility] [address] [place] [address] Drive [address] [place] [address] XRay Report Signed Patient: Keegan Bryant R#: [id number] : 1970Acct:[id number] Age/Sex: 53 / FADM Date: 05/23/24 Loc: TALISTEVOTk Attending Dr: Melissa Leyva PA-C Ordering Physician: Melissa Leyva PA-C Date of Service: 05/23/24 Procedure(s): XR knee RT 1V Accession Number(s): [id number] cc: Meaghan Bhat DO; Melissa Leyva PA-C [...] in OV> 06/11/24 1701 DD/ 1003 TD/TT: Electromechanical Equipment Assembler: BEN [facility] External Provider IMG XR PROCEDURES Final Result documented in this encounter Visit Diagnoses Not on filedocumented in this encounter Additional Health Concerns Assessment Noted Time PHQ-9 Depression Total Score: 2 11/16/19 10:21 AM EST documented as of this encounter Care Teams Transit Clerk Relationship Specialty Start Date End Date Meaghan Bhat DO [address] [place] [address] PCP - General Family Medicine 02/18/20 Ab Montes Bedspread Cutter HandJunior Project Manager 11/26/24 documented as of this encounter
--- OUTSIDE RECORDS SUMMARY | 2024-12-07 10:46 | XMS_ITS | Encounter Summary ---
Author Organization [employer] Address [address] [facility] [address]t [place] [address] Care Team Providers Care Electric Scoop Operator Name Role Phone Meaghan Bhat DO Primary Care Provider + [phone] Encounter Details Date Type Department Care Team ([facility] st Contact Info) Description 11/26/2024 Patient Outreach [facility] MED & PEDS [address] [place], [place] [phone] Meaghan Bhat DO [address] [place] [address] Social History Tobacco Use Types Packs/Day Years [...] documented as of this encounter Care Teams Electric Scoop Operator Relationship Specialty Start Date End Date Meaghan Bhat DO [address] [place] [address] PCP - General Family Medicine 02/18/20 Ab Montes Director Of Operations Home HealthGlobal Risk Management Director 11/26/24 documented as of this encounter
--- OUTSIDE RECORDS SUMMARY | 2024-12-07 10:46 | XMS_ITS | Encounter Summary ---
Author Organization [employer] Address [address] [facility] [address] 7[address] [place] [address] Care Team Providers Care Molecular Physicist Name Role Phone Meaghan Bhat DO Primary Care Provider + [phone] Encounter Details Date Type Department Care Team (Late st Contact Info) Description 11/06/2024 Orders Only [facility] MEDICINE [address] [place], [place] [phone] ProviderDeb MD Social History Tobacco Use Types [...] documented as of this encounter Care Teams Molecular Physicist Relationship Specialty Start Date End Date Meaghan Bhat DO [address] [place] [address] PCP - General Family Medicine 02/18/20 Ab Montes Senior Game DesignerCoffee Taster 11/26/24 documented as of this encounter
--- OUTSIDE RECORDS SUMMARY | 2024-12-07 10:46 | XMS_ITS | Encounter Summary ---
Author Organization [employer] Address [address] [facility] [address] 7t [place] [address] Care Team Providers Care Geospatial Engineer Name Role Phone Meaghan Bhat DO Primary Care Provider + [phone] Encounter Details Date Type Department Care Team [...] documented as of this encounter Care Teams Geospatial Engineer Relationship Specialty Start Date End Date Meaghan Bhat DO [address] [place] [address] PCP - General Family Medicine 02/18/20 Ab Montes Investigation LieutenantSystems Integration Manager 11/26/24 documented as of this encounter
--- OUTSIDE RECORDS SUMMARY | 2024-12-07 10:46 | XMS_ITS | Clinical Summary ---
Author Organization [facility] Address [address] [place] [address] Care Team Providers Care Flap Presser Name Role Phone Unavailable Primary Care Provider Unavailabl e Surgical History Surgery Date Site/Laterality Comments TUBAL LIGATION PROCEDURE: HISTORICAL TUBAL LIGATION HERNIA REPAIR PROCEDURE: HISTORICAL HERNIA REPAIR/ING OTHER SURGICAL HISTORY PROCEDURE: [place] UNLISTED PX MECKEL'S DIVERTICULUM & MESENTERY OTHER SURGICAL HISTORY PROCEDURE: NH RENAL NDSC NEPHROTOMY W/WO IRRIGATION SECTION PROCEDURE: HISTORICAL DELIVERY HYSTEROSCOPY 09/2019 PROCEDURE: [place] HYSTEROSCOPY BX ENDOMETRIUM&/POLYPC W/WO D&C; COMMENT: with [...] of 3 - 19+ 3-dose series) 1988 Pneumococcal Vaccine: 50+ Ye ars (1 of 1 - PCV) 2019 Zoster Vaccines (1 of 2) 2019 Breast [...] patient's age to complete this topic Meningococcal B Vacine Aged Out No lo nger eligible based on patient's age to complete [...] Procedure Name Priority Date/Time Associated Diagnosis Comments TAMANNA SCREENING DIGITAL Routine 04/11/2019 1:28 PM EDT Encounter for screening mammogram for malignant neoplasm of breast PAP SMEAR Routine 03/30/2019 from Last 3 Months or Most Recently Relevant to Health Maintenance Results * TAMANNA SCREENING DIGITAL (04/11/2019 1:28 PM EDT) Anatomical Region Laterality Modality Mammography 04/11/2019 10:0 2 AM EDT Narrative 04/11/2019 1:28 PM EDT [facility] Diagnostic Imaging Department [address] [place] [address] Patient: ??VIRY DODGE ?/Age/Sex: 1970 - 48 - F Unit#: ??[id number] ? Location/Status: ??SPDIMAM/REG CLI ? Mnemonic/Ordering Site: ??DIGSC/SPMAM Ordering Physician: ??CONCEPCIÓN YEH CNM [facility] Screening Digital - 04/11/19 - 1042 EXAM: [facility] Screening Digital EXAM DATE AND TIME: 04/11/2019 10:44 AM HISTORY: ??Screening. COMPARISON: ??Previous exams performed in [place] in 2013 are not available per the patient. TECHNIQUE: CC and MLO views of both breasts were obtained using full field digital mammography. Bilateral digital breast tomosynthesis was performed in the MLO projection. Computer aided detection with the GEOLID 7.2-H was employed. TISSUE DENSITY: c. The [...] Routine screening mammogram BILATERAL in 1 year. 13356, [address]70 3341F, 7025F Dictating Physician: ??BERNICE BOYD MD Electronically Signed by: ??BERNICE BOYD MD Dic Date/Time: ??04/11/19 1327 Sign date/Time: ??04/11/19 1328 Procedure Note Bernice Boyd - 10/12/2022 [facility] Diagnostic Imaging Department [address] [place] [address] Patient: ALAINA JOHNSONVIRY /Age/Sex: 1970 - 48- F Unit#: [id number] Location/Status: [facility]/REG CLI Mnemonic/Ordering Site: [facility] Ordering Physician: CONCEPCIÓN YEH CNM [facility] Screening Digital - 04/11/19 - 1042 EXAM: [facility] Screening Digital EXAM DATE AND TIME: 04/11/2019 10:44 AM HISTORY: Screening. COMPARISON: Previous exams performed in [place] in 2013 are notavailable per the patient. TECHNIQUE: CC and MLO views of both breasts were obtained using fullfield digital mammography. Bilateral digital breast tomosynthesis was performedin the MLO projection. Computer aided detection with the GEOLID 7.2-Hwas employed. TISSUE DENSITY: c. The breasts [...] Routine screening mammogram BILATERAL in 1 year. [address]3533, [address]778 3341F, 7014F Dictating Physician: BERNICE BOYD MD Electronically Signed by: BERNICE BOYD MD Dic Date/Time: 04/11/19 1327 Sign date/Time: 04/11/19 1328 Concepción Yeh CNM IMG BI PROCEDURES Final Resul t * Pap smear (03/30/2019) 03/30/2019 Narrative HISTORICAL TESTING LAB RESULTING AGENCY - 04/04/2019 4:21 PM EDT [id number] THINPREP PAP, IMAGED: NEGATIVE FOR SQUAMOUS INTRAEPITHELIAL [...] LMP 03/18/19, NEG HC PER PT IN [place], Z12.4 Concepción Yeh CNM LAB CYTOLOGY ORDERABLES Final Result HISTORICAL TESTING LAB RESULTING AGENCY from Last 3 Months or Most Recently Relevant to Health Maintenance
--- OUTSIDE RECORDS SUMMARY | 2024-12-07 10:46 | XMS_ITS | Encounter Summary ---
Author Organization [employer] Address [address] [facility] 7t [place] [address] Care Team Providers Care Tenter Feeder Name Role Phone Meaghan Bhat DO Primary Care Provider + [phone] Reason for Referral * Consultation (Routine) - Authorized Specialty Diagnoses / Procedures Referred By Ana calvillo Referred To Contact Gastroenterology Diagnoses Colon cancer screening Renetta Frey MD [address] [place] [address] Phone: tel: fax: [address] Phone: tel: fax: Referral ID Status Reason Start Date Expiration Date Visits Requested Visits Authorized [id number] Authorized Specialty Services Required 11/27/2024 11/27/2025 1 1 Reason for Visit * Reason Comments Abdominal Pain Encounter Details Date Type Department Care Team (Late st Contact Info) Description 11/27/2024 5:20 PM EST Office Visit [facility] [address] [place] [address] Renetta Frey MD [address] [place] [address] RLQ abdominal pain (Primary Dx); Colon [...] 11/27/2024 5:20 PM EST Expect called to [facility] ED at [phone] per verbal order per Dr. Frey. RN gave verbal report Stephanie, whom verbalized understanding. [facility] to F/U as needed. documented in [...] documented as of this encounter Care Teams Tenter Feeder Relationship Specialty Start Date End Date Meaghan Bhat DO [address] [place] [address] PCP - General Family Medicine 02/18/20 Ab Montes Blow Molding Machine OperatorIt Field Technician 11/26/24 documented as of this encounter
--- OUTSIDE RECORDS SUMMARY | 2024-12-07 10:46 | XMS_ITS | Encounter Summary ---
Author Organization [employer] Address [address] [place] [address] Care Team Providers Care Biomedical Equipment Technician Name Role Phone Meaghan Bhat DO Primary Care Provider + [phone] Encounter Details Date Type Department Care Team [...] EST Narrative 11/28/2024 12:48 AM EST ? [facility] ?[address] ?[place] [address] ? CT Scan Report ? Signed ? Patient: Lavelle Marti,Viry ?M ?? R#: [id number] ? : 1970 ?Acct:[id number] ? Age/Sex: 54 / F ?ADM Date: 02/04/25 ? Loc: HO.ED ? Attending Dr: ? Ordering Physician: Keith Lechuga ?? Date of Service: 11/28/24 ?? Procedure(s): CT abdomen pelvis w IV con ?? Accession Number(s): [id number] ? cc: Meaghan Bhat DO; Keith Lechuga ? Report Number: ?? [id number]: Total DLP = ??734.00 mGy-cm ? CLINICAL [...] in OV> ? 11/28/24 0048 ? DD/ 0047 ? TD/TT: 11/28/24 0047 ? Archery Instructor: ? Procedure Note Scott Monte - 11/28/[address] [address] [address] Scan Report Signed Patient: Keegan Bryant#: [id number] : 1970Acct:[id number] Age/Sex: 54 / FADM Date: 11/27/24 Loc: HO.ED Attending Dr: Ordering Physician: Keith Lechuga Date of Service: 11/28/24 Procedure(s): CT abdomen pelvis w IV con Accession Number(s): [id number] cc: Meaghan Bhat DO; Keith Lechuga Report Number: [id number]: Total DLP = 734.00 mGy-cm CLINICAL HISTORY: [...] MD in OV> 11/28/2447 DD/ TD/TT: 11/28/2446 Archery Instructor: [facility] External Provider IMG CT PROCEDURES Edited Result - Final * Lipase (11/27/2024 6:44 PM EST) Lipase 31 8 - 78 U/L [facility] 11/27/2024 6:44 PM EST 11/27/2024 6:46 PM EST Generic External Data Provider LAB BLOOD ORDERAB LES Final Result Performing Organization Address [facility]/ZIP Co de Phone Number [facility] [address] [place] [phone] * Magnesium (11/27/2024 6:44 PM EST) Pathologist [facility] Magnesium 2.1 1.6 - 2.6 mg/dL [facility] 11/27/2024 6:44 PM EST 11/27/2024 6:46 PM EST [email or web address] External Data Provider LAB BLOOD ORDERAB LES Final Result Performing Organization Address [facility]/ZIP Co de Phone Number [facility] [address] [place] [phone] * Comprehensive Metabolic Panel (11/27/2024 6:44 PM EST) Pathologist [facility] Sodium 143 135 - 145 mmol/L [facility] Potassium 4.2 3.3 - 5.1 mmol/L [facility] Chloride 105 96 - 108 mmol/L [facility] Carbon Dioxide 27 22 - 29 mmol/L [facility] Anion Gap 15 12 - 20 [facility] Urea Nitrogen (BUN) 11 9 - 16 mg/dL [facility] Creatinine, Serum 0.73 0.5 - 1.4 mg/dL [facility] Creatinine Clr Calc Pharmacy 90.0 [facility] Comment:Provided height and weight: 154.94 cm,92.079 kg.eGFR (calculated from the MDRD study equation) and eCrCl(calculated from the Cockcroft-Gault equation) are based ondifferent parameters and may not yield comparable results.If eCrCl result is absurd, please check patient'sheight/weight. Estimated Glomerular Filt Rate >60 [facility] Comment:Chronic Kidney Disea se: Estimated GFR < 60 mL/min/1.47h0Snstdh Kidney Disease: Estimated GFR < 15 mL/min/1.73m2 Glucose 88 60 - 115 mg/dL [facility] Calcium 9.3 8.4 - 10.2 mg/dL [facility] Bilirubin, Total 0.4 0.0 - 1.0 mg/dL [facility] Aspartate Amino Transferase 17 5 - 31 U/L [facility] Alanine Aminotransferase 22 0 - 31 U/L [facility] Total Protein 7.9 6.5 - 8.0 g/dL [facility] Albumin Level 4.2 3.5 - 5.0 g/dL [facility] Alkaline Phosphatase 94 39 - 117 U/L [facility] 11/27/2024 6:44 PM EST 11/27/2024 6:46 PM EST us Generic External Data Provider LAB BLOOD ORDERAB LES Final Result [facility] [address] [place] [phone] * (ABNORMAL) CBC auto differential (11/27/2024 6:44 PM EST) White Blood Count 11.9(H) 4.8 - 10.8 X10*3/uL [facility] Red Blood Count 4.68 4.20 - 5.50 X10*6/uL [facility] Hemoglobin 13.0 12.0 - 16.0 g/dl [facility] Hematocrit 39.6 37.0 - 47.0 % [facility] Mean Corpuscular Volume 84.6 80.0 - 98.0 fL [facility] Mean Corpuscular Hemoglobin 27.8 27.0 - 33.0 pg [facility] Mean Corpuscular HGB Conc 32.8 31.0 - 35.0 g/dl [facility] Red Cell Distribution Width 13.8 11.0 - 16.0 % [facility] Platelet Count 358 160 - 400 X10*3/uL [facility] Mean Platelet Volume 8.6(L) 9.4 - 12.3 fL [facility] Neutrophils Percent Auto 61.0 45 - 73 % [facility] Imm Gran Pct Auto 0.3 0.0 - 0.4 % [facility] Lymphocytes Percent Auto 28.4 20 - 40 % [facility] Monocytes Percent Auto 7.7 2 - 11 % [facility] Eosinophils Percent Auto 2.0 0 - 4 % [facility] Basophils Percent Auto 0.6 0 - 2 % [facility] NRBC Pct Auto 0.0 0.0 - 0.2 /100WBC [facility] Neutrophils Absolute Auto 7.3 2.0 - 8.3 x10*3/uL [facility] Imm Gran Abs Auto 0.04(H) 0.00 - 0.03 X10*3/uL [facility] Lymphocytes Absolute Auto 3.4 1.2 - 4.9 X10*3/uL [facility] Monocytes Absolute Auto 0.9 0.1 - 1.2 X10*3/uL [facility] Eosinophils Absolute Auto 0.2 0.0 - 0.4 X10*3/uL [facility] Basophils Absolute Auto 0.1 0.0 - 0.2 X10*3/uL [facility] NRBC Abs Auto 0.000 0.0 - 0.012 X10*3/uL [facility] 11/27/2024 6:44 PM EST 11/27/2024 6:46 PM EST us Generic External Data Provider LAB BLOOD ORDERAB LES Final Result [facility] [address] [place] [phone] documented in this encounter Visit Diagnoses Not on filedocumented in this encounter Additional Health Concerns Assessment Noted Time PHQ-9 Depression Total Score: 6 11/21/19 25 9:42 AM EST documented as of this encounter Care Teams Biomedical Equipment Technician Relationship Specialty Start Date End Date Meaghan Bhat DO [address] [place] [phone] PCP - General Family Medicine 02/18/20 Ab Montes Lead CashierUpper Leather Sorter 11/26/24 documented as of this encounter
[2024-12-07 11:02] LABS: MANUAL DIFF FLAG NO
[2024-12-07 11:13] LABS: Basophils Percent Auto 0.4 % (0-2); Eosinophils Absolute Auto 0.6 X10*3/uL (0.0-0.4); Eosinophils Percent Auto 5.2 % (0-4); Hemoglobin 13.2 g/dl (12.0-16.0); Imm Gran Abs Auto 0.04 X10*3/uL (0.00-0.03); Imm Gran Pct Auto 0.4 % (0.0-0.4); Lymphocytes Absolute Auto 2.2 X10*3/uL (1.2-4.9); Lymphocytes Percent Auto 19.7 % (20-40); Mean Corpuscular Hemoglobin 27.7 pg (27.0-33.0); Mean Corpuscular Volume 83.9 fL (80.0-98.0); Mean Platelet Volume 9.4 fL (9.4-12.3); Monocytes Absolute Auto 0.7 X10*3/uL (0.1-1.2); Monocytes Percent Auto 6.2 % (2-11); Neutrophils Absolute Auto 7.7 x10*3/uL (2.0-8.3); Neutrophils Percent Auto 68.1 % (45-73); Platelet Count 343 X10*3/uL (160-400); Red Blood Count 4.77 X10*6/uL (4.20-5.50); Red Cell Distribution Width 13.6 % (11.0-16.0); White Blood Count 11.3 X10*3/uL (4.8-10.8)
[2024-12-07 11:55] LABS: Alanine Aminotransferase 24 U/L (0-31); Albumin Level 4.2 g/dL (3.5-5.0); Alkaline Phosphatase 88 U/L (39-117); Anion Gap 11 (12-20); Aspartate Amino Transferase 20 U/L (5-31); Bilirubin Total 0.5 mg/dL (0.0-1.0); Blood Urea Nitrogen 13 mg/dL (9-16); Calcium 9.8 mg/dL (8.4-10.2); Carbon Dioxide 25 mmol/L (22-29); Chloride 106 mmol/L (96-108); Estimated Glomerular Filt Rate > 60; Glucose Random 112 mg/dL (60-115); Potassium 3.9 mmol/L (3.3-5.1); Sodium 138 mmol/L (135-145); Total Protein 7.9 g/dL (6.5-8.0)
== END 2024-12-07 10:03 | disposition home or self-care (01) ==
LOC: HO.HHCL 10:02
PROVIDERS: Visit Provider Nurse Practitioner Family
DX: A09 Infectious gastroenteritis and colitis, unspecified (principal)
CPT/HCPCS: 36415; 80053; 85025

== ENCOUNTER 2025-10-03 12:51 | Outpatient (AMB) | payer MEDICAID, SELFPAY ==
--- NOTE | 2025-10-03 13:06 | A.OFFVIS_ITS ---
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 Patient went to [facility] ER after experiencing leg pain and a bump . She was told she has superficial thrombosis in her right leg. The area (on her right leg) gets red and irritated as well as inflamed and raised. 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 She recently presented to the emergency room at [facility] for painful right lower extremity varicosity, where she was advised to take aspirin 81 mg for one week and apply hot compresses. The patient has known vein problems in her right leg and notes some are starting in the left leg as well. She believes she may have had an ultrasound of her legs performed at [facility] previously. The patient denies any history of smoking or diabetes. It has been affecting there daily activities including walking. It is noted more so in right leg. Patient denies any previous venous surgery or injections. Patient denies any history of DVT/ PE. Patient did have a history of phlebitis that was treated [facility] Trial of compression includes - [id number] They now present for vascular evaluation regarding their varicose veins. [facility] Medical History Carpal tunnel syndrome of left wrist Mild depression Chronic low back pain Diverticulosis Chronic gastroesophageal reflux disease Intermittent asthma History of panic disorder Hx of allergic rhinitis Surgical History H/O colonoscopy Hx of cholecystectomy Hx of lithotripsy History of inguinal hernia Hx of section Family History Father No problems noted. Mother No problems noted. Social History Alcohol intake: current Alcohol intake frequency: does not drink Patient Tobacco Use Status: Never used Tobacco Review of Systems Const Reports as per HPI ENT Reports no additional complaints Card Denies chest pain, Denies chest pain at rest and Denies chest pain with activity Resp Denies chest congestion and Denies cough GI Reports no additional complaints Musc Details: pain over varicosities, aching of lower extremities, swelling, cramping, heaviness and tiredness, itching Denies abnormal gait Skin/Breast Reports pruritus and Denies wounds Neuro Reports no additional complaints and Denies abnormal gait Psych Denies no additional complaints Physical Exam Const General: cooperative, healthy appearing and comfortable Orientation/consciousness: oriented to person, oriented to place and oriented to time Neck Carotids: no bruits Chest Chest palpation & inspection: normal inspection of the chest and normal palpation of entire chest wall Resp Effort & Inspection: normal respiratory effort and able to speak in complete sentences Cardio Rate: regular rate Heart sounds: S1 normal heart sound present and S2 normal heart sound present Peripheral pulses: Peripheral pulses 2+ throughout GI Inspection: Yes normal to inspection Skin Other: +2 edema, multiple spider telangiectasias CEAP Classification C4 - skin color changes Ep - Etiology Primary As - superficial veins P - reflux General skin exam: dry skin Neuro General: oriented to person, oriented to place and oriented to time Extrem Right lower extremity: full ROM, normal capillary refill and edema Left lower extremity: full ROM, normal capillary refill and edema Psych Mental Status: mental status grossly normal Assessment & Plan Assessment & Plan (1) Varicose veins of right lower extremity with inflammation: Code(s): I83.11 - Varicose veins of right lower extremity with inflammation Category: Medical Plan: In short, the patient has evidence of venous insufficiency. I have discussed the pathophysiology with the patient. In addition I have provided informational material regarding venous disease to the patient. We have discussed conservative measures including compression, elevation, and exercise. I have also provided a handout regarding appropriate use of compression stockings and where to purchase good compression stockings as well. I do believe she had venous insufficiency testing at [facility]. We are in the process of trying to get those. Once we can review we will schedule her for follow-up. The patient had an opportunity to ask questions regarding the treatment plan. All questions were answered. Imaging studies, laboratory studies and physical exam results were discussed and reviewed in detail. No major barriers to understanding were identified. The patient expressed understanding and agreement with the above treatment plan. The patient is aware they should contact our office by phone for worsening of the current condition or the appearance of new symptoms. Thank you for allowing me to participate in the vascular care of this patient. If you have any questions or concerns regarding the treatment for the above condition please do not hesitate to contact me. The office telephone contact is [phone]. This note is constructed using voice recognition software. While every effort has been made to ensure accuracy, armor reconnaissance specialist errors may have been included. Thank you for allowing me to participate in the care of your patient. Yours sincerely, Dale Au MD, FACS, R.P.V.I. Coding Level of Care Code New Pt Level 4 (60480) Diagnoses Varicose veins of right lower extremity with inflammation I83.11
== END 2025-10-03 13:43 | disposition home or self-care (01) ==
LOC: HO.HVS 12:51
PROVIDERS: PCP Family Medicine; Visit Provider Surgery Vascular Surgery
DX: I83.11 Varicose veins of right lower extremity with inflammation (principal)
CPT/HCPCS: 99204

== ENCOUNTER → 2025-10-03 12:51 | Outpatient (BNVA) | payer MEDICAID, SELFPAY | PROVIDERS: PCP Family Medicine; Visit Provider Surgery Vascular Surgery | DX: I83.11 Varicose veins of right lower extremity with inflammation (principal) | CPT/HCPCS: 99202 ==